=== PATIENT | female | born 1975 | race Two or more races ===

== ENCOUNTER 2023-04-05 19:48 | Emergency (ER) | payer MEDICAID, SELFPAY ==
[2023-04-05 19:55] VITALS: BP 151/79; PULSE 79; RESP 16; O2SAT 99; BMI 30.5
--- NOTE | 2023-04-05 20:04 | ED.GENADUL1 ---
HPI - General Adult General Chief complaint: Upper Respiratory Infection Stated complaint: sore throat Time Seen by Provider: 04/05/23 19:56 Source: patient Mode of arrival: walk-in History of Present Illness HPI narrative: [age] year old female presents for a four day history of sore throat. It hurts when she swallows. 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 She checked her self or Covid at home and it was negative. No fever but she felt like she had some chills. Related Data Allergies Allergy/AdvReac Type Severity Reaction Status Date / Time No Known Drug Allergies Allergy Verified 04/05/23 20:03 Review of Systems ROS Narrative A ten point review of systems is negative except as noted above. PFSH PFSH Social History Smoking status: Never smoker Exam Narrative Exam Narrative: Nurses note and vital signs reviewed and patient is not hypoxic. General: The patient appears well and in no apparent distress. Patient is resting comfortably on cart. Skin: Warm, dry, no pallor noted. There is no rash noted. Head: Normocephalic, atraumatic Eye: Normal conjunctiva, no drainage Ears, Nose, Mouth, and Throat: oral mucosa is moist. Nares patent. exudate or erythema. Uvula is midline. No swelling. She is handling her oral secretions well. Cardiovascular: Regular Rate and Rhythm Respiratory: Patient is in no distress, no accessory muscle use, lungs are clear to auscultation, no wheezing, rales or rhonchi Back: non-tender GI: nontender Musculoskeletal: The patient has no evidence of calf tenderness, no pitting edema, symmetrical pulses noted bilaterally Neurological: A&O, normal speech Psychiatric: Cooperative Constitutional Vital Signs, click to edit/add: Last Vital Signs Pulse 79 04/05/23 19:55 Resp 16 04/05/23 19:55 BP 151/79 H 04/05/23 19:55 Pulse Ox 99 04/05/23 19:55 O2 Del Method Room Air 04/05/23 19:55 Course Vital Signs Vital signs: Vital Signs Pulse Rate 79 04/05/23 19:55 Respiratory Rate 16 04/05/23 19:55 Blood Pressure 151/79 H 04/05/23 19:55 Pulse Oximetry 99 04/05/23 19:55 Oxygen Delivery Method Room Air 04/05/23 19:55 Pulse Rate 79 04/05/23 19:55 Respiratory Rate 16 04/05/23 19:55 Blood Pressure 151/79 H 04/05/23 19:55 Pulse Oximetry 99 04/05/23 19:55 Oxygen Delivery Method Room Air 04/05/23 19:55 Medical Decision Making MDM Narrative Medical decision making narrative: strep test is negative. No antibiotic is indicated. Treatment diagnosis and follow-up were discussed with the patient. Differential Diagnosis Differential Diagnosis: strep throat, Covid, viral pharyngitis Lab Data Lab results narrative: strep test negative. Labs: Lab Results 04/05/23 Range/Units 20:02 Streptococcus Screen Negative Discharge Plan Discharge Chief Complaint: Upper Respiratory Infection Clinical Impression: Acute viral pharyngitis Patient Disposition: Home, Self-Care Time of Disposition Decision: 20:48 Condition: Good Mode of Transportation: Private Vehicle Instructions: Pharyngitis (ED) Stand Alone Forms: Portal Instructions Referrals: KHLOE SALVADOR [Primary Care Provider] - 1 week
[2023-04-05 20:31] LABS: Internal Control Within Normal Limits; Strep A Antigen Screen Negative
== END 2023-04-05 20:59 | disposition home or self-care (01) ==
PROVIDERS: Emergency Provider Emergency Medicine; PCP Family Medicine
DX: J02.9 Acute pharyngitis, unspecified (principal)
CPT/HCPCS: 87070; 87880; 99283

== ENCOUNTER 2023-05-08 17:09 | Emergency (ER) | payer MEDICAID, SELFPAY ==
[2023-05-08 17:12] VITALS: BP 147/53; PULSE 82; RESP 16; TEMP 36.7; O2SAT 100; BMI 31.2
--- NOTE | 2023-05-08 17:16 | US_ITS ---
The [address] [address] Patient Name: JEREMY NDIAYE MRN: [id number] date: 1975 Sex: F Assigned Patient Location: ER Current Patient Location: Accession/Order Number: [id number] Exam Date: 05/08/2023 17:57 Report Date: 05/08/2023 18:42 At the request of: JACINTO HARDWICK Procedure: US venous doppler LE LT EXAM: US venous doppler LE LT HISTORY: calf pain, history of deep vein thrombosis COMPARISON: None. TECHNIQUE: Evaluation of the deep veins of the left lower extremity was performed utilizing B-mode, color flow and spectral analysis. FINDINGS: The visualized vessels comprising the deep venous systems from the common femoral vein through the calf veins demonstrate appropriate compressibility, spontaneous color Doppler flow, and augmentation of flow on spectral Doppler with distal compression. Additional findings: None. US/US venous doppler LE LT IMPRESSION: No sonographic evidence of deep venous thrombosis of the left lower extremity. Electronically authenticated by: VANE HILTON Date: 05/08/2023 18:42
--- NOTE | 2023-05-08 17:18 | ED.GENADUL1 ---
HPI - General Adult General Chief complaint: Extremity Injury, Lower Stated complaint: left knee pain Time Seen by Provider: 05/08/23 17:11 Source: patient Mode of arrival: walk-in History of Present Illness HPI narrative: 47 year old female presents for left calf pain. She's had it for a week and half. She is worried about a deep vein thrombosis. She had one previously and was taken off of her blood thinner about a year ago. No chest pain or shortness of breath and there was no injury. No pain in the knee or ankle. Symptom is continuous. Related Data Allergies Allergy/AdvReac Type Severity Reaction Status Date / Time No Known Drug Allergies Allergy Verified 04/05/23 20:03 Review of Systems ROS Narrative A ten point review of systems is negative except as noted above. PFSH PFSH Social History Smoking status: Never smoker Exam Narrative Exam Narrative: Nurses note and vital signs reviewed and patient is not hypoxic. General: The patient appears well and in no apparent distress. Patient is resting comfortably on cart. Skin: Warm, dry, no pallor noted. There is no rash noted. Head: Normocephalic, atraumatic Eye: Normal conjunctiva, no drainage Ears, Nose, Mouth, and Throat: oral mucosa is moist. Nares patent. Cardiovascular: Regular Rate and Rhythm Respiratory: Patient is in no distress, no accessory muscle use Back: non-tender GI: Normal bowel sounds, no tenderness to palpation, no masses appreciated. No rebound, guarding, or rigidity noted. Musculoskeletal: she has some left calf tenderness without mass or bruising or erythema or visible swelling. Neurological: A&O, normal speech Psychiatric: Cooperative Constitutional Vital Signs, click to edit/add: Last Vital Signs Temp 98.0 F 05/08/23 17:12 Pulse 82 05/08/23 17:12 Resp 16 05/08/23 17:12 BP 147/53 H 05/08/23 17:12 Pulse Ox 100 05/08/23 17:12 O2 Del Method Room Air 05/08/23 17:12 Course Vital Signs Vital signs: Vital Signs Temperature 98.0 F 05/08/23 17:12 Pulse Rate 82 05/08/23 17:12 Respiratory Rate 16 05/08/23 17:12 Blood Pressure 147/53 H 05/08/23 17:12 Pulse Oximetry 100 05/08/23 17:12 Oxygen Delivery Method Room Air 05/08/23 17:12 Temperature 98.0 F 05/08/23 17:12 Pulse Rate 82 05/08/23 17:12 Respiratory Rate 16 05/08/23 17:12 Blood Pressure 147/53 H 05/08/23 17:12 Pulse Oximetry 100 05/08/23 17:12 Oxygen Delivery Method Room Air 05/08/23 17:12 Medical Decision Making MDM Narrative Medical decision making narrative: Doppler is negative and she is able to be discharged home. Treatment diagnosis and follow-up were discussed with the patient. Discharge Plan Discharge Chief Complaint: Extremity Injury, Lower Clinical Impression: Leg pain Patient Disposition: Home, Self-Care Time of Disposition Decision: 18:15 Condition: Good Mode of Transportation: Private Vehicle Instructions: Leg Pain (ED) Stand Alone Forms: Portal Instructions Referrals: KHLOE SALVADOR [Primary Care Provider] - 1 week
== END 2023-05-08 18:24 | disposition home or self-care (01) ==
PROVIDERS: Emergency Provider Emergency Medicine; PCP Family Medicine
DX: M79.605 Pain in left leg (principal); Z86.718 Personal history of other venous thrombosis and embolism
CPT/HCPCS: 93971; 99284

== ENCOUNTER 2023-12-03 20:39 | Outpatient (REF) | payer MEDICAID, SELFPAY ==
[2023-12-09 15:08] LABS: Age Gdln ACOG Testing Note (.); HPV Aptima Negative (Negative); IGP, Aptima HPV, rfx 16/18,45 Note (.)
== END 2023-12-03 20:40 | disposition home or self-care (01) ==
LOC: LAB 20:39
PROVIDERS: PCP Family Medicine; Visit Provider Physician Assistant
DX: Z01.419 Encounter for gynecological examination (general) (routine) without abnormal findings (principal)
CPT/HCPCS: 87624; G0145

== ENCOUNTER 2025-03-23 14:48 | Outpatient (REF) | payer MEDICAID, SELFPAY ==
--- OUTSIDE RECORDS SUMMARY | 2024-10-07 04:45 | XMS_ITS ---
Author Organization [facility] vices Address [address] [place] [id number] Care Team Providers Care Display Carver Name Role Phone Darell De Oliveira Unavailable [phone] Kristine Cerna Unavailable [phone] REASON FOR VISIT Recall (A)- 48 Social History Sex Assigned At : Social History Observation Description Sex Assigned At Female Encounters Encounter Location Date Provider Diagnosis [facility] [address] [place], [place] [id number] 10/07/2024 Kristine Cerna Plan Of Treatment No Information Progress Notes * Oumar NDIAYEOB: 7 (49 yo F)Acc No.[id number]:10/07/2024 Patient: Jenn TODD Provider: Nnamdi Cerna DDS :1975 A ge:48 Y S ex:Female Date:10/07/2024 Address:[address] [facility] Subjective: * Chief Complaints: * 1 . Recall (A)- 48. * Medical History: Objective: * Vitals: Assessment: Plan: * Treatment: * Billing Information: * Visit Code: * Procedure Codes: * Electronic signature of Matty Cerna DDS on 03/23/2025 at 08:26 AM EDT Sign off status: Pending * Provider: Nnamdi Cerna DDS Date: 0 10/07/2024 Generated for Trani ng/Fataz/eTransmitting on: 0 03/23/2025 08:26 AM EDT
--- OUTSIDE RECORDS SUMMARY | 2024-12-13 13:15 | XMS_ITS ---
Author Organization [facility] vices Address [address] [place] [id number] Care Team Providers Care Legal Contracts Specialist Name Role Phone Darell De Oliveira Unavailable [phone] Kristine Cerna Unavailable [phone] REASON FOR VISIT Recall (A) 48 Social History Sex Assigned At : Social History Observation Description Sex Assigned At Female Encounters Encounter Location Date Provider Diagnosis [facility] [address] [place], [place] [id number] 12/13/2024 Kristine Cerna Plan Of Treatment No Information Progress Notes * Oumar NDIAYEOB: 7 (49 yo F)Acc No.[id number]:12/13/2024 Patient: Jenn TODD Provider: Nnamdi Cerna DDS :1975 A ge:49 Y S ex:Female Date:12/13/2024 Address:[address] [id number] Subjective: * Chief Complaints: * 1 . Recall (A) 48. * Medical History: Objective: * Vitals: Assessment: Plan: * Treatment: * Billing Information: * Visit Code: * Procedure Codes: * Electronic signature of Matty Cerna DDS on 03/23/2025 at 08:26 AM EDT Sign off status: Pending * Provider: Nnamdi Cerna DDS Date: 0 12/13/2024 Generated for Elizabeth miller/Alexandra/eTransmitting on: 0 03/23/2025 08:26 AM EDT
--- OUTSIDE RECORDS SUMMARY | 2025-03-23 09:00 | XMS_ITS | Encounter Summary ---
Author Organization [facility] Address [address] [facility] [place] [address] Care Team Providers Care [employer] Librarian Name Role Phone Park Perdomo MD Primary Care Provider [phone] Idalmis Kramer [employer] Unavailable [phone] Franklin Sanchez MD Unavailable Reason for Visit * Reason Comments Well Women Visit Encounter Details Date Type Department Care Team (Latest Contact Info) Description 03/23/2025 9:00 AM EDT Procedure Visit [facility] [address] [place] [address] Kimberlee Jane PA [address] [facility] [address] [place], [facility]11 Well woman exam with routine gynecological exam; Breast cancer screening by mammogram Social History Tobacco Use Types Packs/Day Years Used Date Smoking Tobacco: Never Smokeless Tobacco: Never Alcohol Use Standard Drinks/Week Comments Yes 1 (1 standard drink = 0.6 oz pure alcohol) caffeine intake : 3-4 cups per day , pop Humiliation, Afraid, Rape, and Kick questionnair e Answer Date Recorded Within the last year, have y ou been afraid of your partner or ex-partner? No 02/14/2023 Within the last year, have y ou been humiliated or emotionally abused in other ways by your partner or ex-partner? No Within the last year, have y ou been kicked, hit, slapped, or otherwise physically hurt by your partner or ex-partner? No 02/14/2023 Within the last year, have y ou been raped or forced to have any kind of sexual activity by your partner or ex-partner? No 02/14/2023 Social Connection and Isolation Panel [NHANES] A nswer Date Recorded In a typical week, how many times do you talk on the phone with family, friends, or neighbors? Once a week 02/15/20 How often do you get togethe r with friends or relatives? Twice a week 02/14/2023 How often do you attend chur ch or mormonism services? 1 to 4 times per year 02/14/2023 Do you belong to any clubs o r organizations such as latter-day groups, unions, fraternal or athletic groups, or school groups? No 02/14/2023 How often do you attend meet ings of the clubs or organizations you belong to? Never 02/14/2023 Are you , , di vorced, , never , or living with a partner? 02/14/2023 AUDIT-C Answer Date Recorded Q1: How often do you have a drink containing alc ohol? Monthly or less 02/14/2023 Q2: How many drinks containi ng alcohol do you have on a typical day when you are drinking? 1 or 2 02/14/2023 Q3: How often do you have si x or more drinks on one occasion? Never 02/14/2023 Overall Financial Resource Strain (CARDIA) Answe r Date Recorded How hard is it for you to pa y for the very basics like food, housing, medical care, and heating? Not hard at all 02/14/2023 [facility] - Occupational Stress Questionnaire Answer Date Recorded Do you feel stress - tense, restless, nervous, or anxious, or unable to sleep at night because your mind is troubled all the time - these days? To some extent 02/14/2023 Exercise Vital Sign Answer Date Recorde d On average, how many days pe r week do you engage in moderate to strenuous exercise (like a brisk walk)? 0 days 02/14/2023 On average, how many minutes do you engage in exercise at this level? 0 min 02/14/2023 Hunger Vital Sign Answer Date Recorded Within the past 12 months, y ou worried that your food would run out before you got the money to buy more. Never true 02/15/20 23 Within the past 12 months, t he food you bought just didn't last and you didn't have money to get more. Never true 02/14/2023 PRAPARE - Transportation Answer Date Re corded In the past 12 months, has l ack of transportation kept you from medical appointments or from getting medications? No 01/26 In the past 12 months, has l ack of transportation kept you from meetings, work, or from getting things needed for daily living? No 02/14/2023 Housing Stability Vital Sign Answer Benedict e Recorded In the last 12 months, was t here a time when you were not able to pay the mortgage or rent on time? No 02/14/2023 In the last 12 months, how many places have you lived? 2 02/14/2023 In the last 12 months, was t here a time when you did not have a steady place to sleep or slept in a correction (including now)? No 02/14/2023 Comments No Sex and Gender Information Value Date Recorded Sex Assigned at Not on file Legal Sex Female 6:46 PM EDT Gender Identity Not on file Sexual Orientation Not on file documented as of this encounter Last Filed Vital Signs Vital Sign Reading Time Taken Comments Blood Pressure 136/76 03/23/2025 8:41 AM EDT Pulse - - Temperature - - Respiratory Rate - - Oxygen Saturation - - Inhaled Oxygen Concentration - - Weight 73.9 kg (163 lb) 03/23/2025 8:41 AM EDT Height - - Body Mass Index 28.87 03/18/2024 9:18 AM EDT documented in this encounter Progress Notes * THADDEUS Rojas - 03/23/2025 9:00 AM EDT Reason for Appointment: Patient ID: Jenn Benson is a 49 y.o. female who presents for Well Women Visit Patient presents today for Annual Exam. MEDICATIONS Current Outpatient Medications Medication Instructions azithromycin (Zithromax Z-Derek) 250 MG tablet As directed buPROPion XL (WELLBUTRIN XL) 300 mg, Oral, Daily, Do not crush, chew, or split. famotidine (PEPCID) 20 mg, Oral, Daily ibuprofen 600 mg, Oral, 3 times daily loratadine (CLARITIN) 10 mg, Oral, Daily metFORMIN XR (GLUCOPHAGE-XR) 1,000 mg, Oral, Daily methylPREDNISolone (Medrol Dospak) 4 MG tablets Follow schedule on package instructions minoxidil (LONITEN) 10 mg, Oral, Daily omeprazole (PriLOSEC) [address] capsule TAKE 1 CAPSULE( 20 MG) BY MOUTH IN THE MORNING BEFORE A MEAL. DO NOT CRUSH OR CHEW phentermine (ADIPEX-P) 37.5 mg, Oral, Daily before breakfast phentermine (ADIPEX-P) 37.5 mg, Oral, Daily before breakfast 27-1 MG tablet 1 tablet, Oral, Daily Vit-Fe Fumarate-FA ( Vitamins) 28-0.8 MG tablet 1 tablet, Oral, Daily pseudoephedrine ER (SUDAFED-12 HOUR) 120 mg, Oral, Every 12 hours, Do not crush, chew, or split. SUMAtriptan (IMITREX) 25 mg, Oral, Once as needed, May repeat dose once in 2 hours if no relief. Donot exceed 2 doses in 24 hours. ALLERGIES Allergies Allergen Reactions Hydrocodone-Acetaminophen Dizziness, GI intolerance and Nausea Only Tetracycline Unknown and Diarrhea Other Reaction(s): Vomiting PROBLEMS Active Ambulatory Problems Diagnosis Date Noted Abnormal uterine bleeding 02/03/2023 Abnormal weight gain 02/03/2023 Artificial knee joint present 02/03/2023 Bipolar 2 disorder (HCC) 02/03/2023 Depression with anxiety 02/03/2023 Depression 02/03/2023 Difficulty walking 02/03/2023 Insulin resistance syndrome 02/03/2023 Effusion, left knee 02/03/2023 Menorrhagia 02/03/2023 Osteoarthritis of knee 02/03/2023 Other chronic pain 02/03/2023 Pain in female pelvis 02/03/2023 Pain in left knee 02/03/2023 Right kidney stone 02/03/2023 Status post total left knee replacement 02/03/2023 Thickened endometrium 02/03/2023 Urinary tract infection without hematuria 08/17/2024 Insulin resistance 01/05/2025 Hair thinning 01/05/2025 Resolved Ambulatory Problems Diagnosis Date Noted No Resolved Ambulatory Problems Past Medical History: Diagnosis Date BMI 27.0-27.9,adult Gestational diabetes (HHS-HCC) Hx of being hospitalized Personal history of other medical treatment Umbilical hernia 2013 HISTORY PAST MEDICAL HISTORY SOCIAL HISTORY Past Medical History: Diagnosis Date Abnormal weight gain BMI 27.0-27.9,adult Depression Gestational diabetes (HHS-HCC) Hx of being hospitalized childbirth Personal history of other medical treatment denies bloodborne dx Umbilical hernia 2012 Social History Tobacco Use Smoking status: Never Smokeless tobacco: Never Substance Use Topics Alcohol use: Yes Alcohol/week: 1.0 - 2.0 standard drink of alcohol Types: 1 - 2 Standard drinks or equivalent per week Comment: caffeine intake : 3-4 cups per day , pop Drug use: Never FAMILY HISTORY Family History Problem Relation Name Age of Onset Other (htn) Mother Diabetes type II Mother Mental illness Mother Hypertension Mother Diabetes Maternal Grandmother Hypertension Maternal Grandmother Heart disease Maternal Grandmother Mental illness Maternal Grandmother Hyperlipidemia Maternal Grandmother SURGICAL HISTORY Past Surgical History: Procedure Laterality Date CERVICAL BIOPSY W/ LOOP ELECTRODE EXCISION 2009 ENDOMETRIAL ABLATION 11/16/2022 KIDNEY STONE SURGERY Right 11/2022 KNEE ARTHROSCOPY W/ ACL RECONSTRUCTION 2017 TOTAL KNEE ARTHROPLASTY Left 05/2021 TOTAL KNEE ARTHROPLASTY Left 06/12/2021 Dr. Salazar UMBILICAL HERNIA REPAIR 2013 with mesh VENTRAL HERNIA REPAIR 2018 REVIEW OF SYSTEMS Review of Systems: Review of Systems Constitutional: Negative. HENT: Negative. Eyes: Negative. Respiratory: Negative. Cardiovascular: Negative. Gastrointestinal: Negative. Genitourinary: Negative. Musculoskeletal: Negative. Skin: Negative. Neurological: Negative. All other systems reviewed and are negative. Hematological: Negative. Endocrine: Negative. Allergic/Immunologic: Negative. OBJECTIVE Objective: Physical Exam Constitutional: Appearance: Normal appearance. Genitourinary: Right Adnexa: not tender and no mass present. Left Adnexa: not tender and no mass present. No cervical discharge. Breasts: Breasts are soft. Right: Normal. Left: Normal. HENT: Head: Normocephalic. Nose: Nose normal. Mouth/Throat: Mouth: Mucous membranes are moist. Cardiovascular: Rate and Rhythm: Normal rate. Pulmonary: Effort: Pulmonary effort is normal. Abdominal: General: Bowel sounds are normal. Palpations: Abdomen is soft. Musculoskeletal: General: Normal range of motion. Cervical back: Normal range of motion. Neurological: General: No focal deficit present. Mental Status: She is alert. Skin: General: Skin is warm and dry. Psychiatric: Mood and Affect: Mood normal. Vitals and nursing note reviewed. Exam conducted with a social sciences instructor present. Vitals: Estimated body mass index is 28.87 kg/m?? as calculated from the following: Height as of 03/18/24: 5' 3 . Weight as of this encounter: 163 lb. BP: 136/76 No LMP recorded. Patient has had an ablation. ASSESSMENT & PLAN ICD-10-CM 1. Well woman exam with routine gynecological exam Z01.419 THIN PREP TIS PAP AND HR HPV DNA 2. Breast cancer screening by mammogram Z12.31 Bilateral screening mammogram Bilateral screening mammogram Annual Exam: Patient presents today for an annual exam. Patient states she is doing well and has no complaints. Pap was obtained without difficulty. Orders Placed This Encounter Procedures Bilateral screening mammogram Follow Up: Patient is to return in one year for annual unless needed otherwise. Documented by THADDEUS Rojas on behalf of: THADDEUS Rojas documented in this encounter Plan of Treatment Upcoming Encounters Date Type Department Care Team (Late st Contact Info) Description 03/29/2026 9:00 AM EDT Procedure Visit [facility] [address] [address] Kimberlee Jane PA [address] [facility] [place] [address] Scheduled Orders Name Type Priority Associated Diagnoses Orde r Schedule Bilateral screening mammogram Imaging Routine Breast cancer screening by mammogram Expected: 03/23/2025 (Approximate), Expires: 05/23/2026 THIN PREP TIS PAP AND HR HPV DNA Pathology and Cytology Routine Well woman exam with routine gynecological exam Ordered: 03/23/2025 documented as of this encounter Visit Diagnoses Diagnosis Well woman exam with routine gynecological exam Routine gynecological examination Breast cancer screening by mammogram documented in this encounter Care Teams [employer] Librarian Relationship Specialty Start Date End Date Park Perdomo MD [address] [place] [address] PCP - General Family Medicine 02/03/23 Franklin Sanchez MD [address] [facility] [address] [id number] PCP - [facility] 10/27/23 Idalmis Kramer NP [address] [place] [address] Nurse Practitioner Family Medicine 02/03/23 documented as of this encounter
--- OUTSIDE RECORDS SUMMARY | 2025-03-23 14:53 | XMS_ITS | Patient Health Record ---
Author Organization [facility] vices Address [address] [place], [place] [id number] Care Team Providers Care Body Maker Machine Setter Name Role Phone Darell De Oliveira Unavailable [phone] Kristine Cerna Unavailable [phone] Allergies Allergen (clinical drug ingredient) Drug/Non Drug Allergy documented on EMR Reaction Allergy Type Onset Date Status Vicodin nausea and vomiting Drug Allergy Active tetracycline Tetracycline hives Drug Allergy A ctive Reason For Referral No Information Medications Medication SIG (Take, Route, Frequency, Duration) Notes Start Date End Date Status Active Amoxicillin Premed for Knee Ac tive metFORMIN HCl Active Mobic 01/23/2024 Active Celecoxib 200 MG Oral; Duration: 30 Days Active Azithromycin 250 MG Oral; Duration: 5 Days Active Wellbutrin XL 150 MG 1 tablet in the morning Orally Once a day; Duration: 30 day(s) 05/13/2024 Active Immunizations Vaccine Route Administration Date Status Comme nts *Hep B, adult dosage-Private IM Intramuscular 03/26/2018 Administered Status:Complete ,Reason:Given or N/A *Hep B, adult dosage-Private IM Intramuscular 10/05/2018 Administered Status:Complete ,Reason:Given or N/A DTaP-Hep B-IPV IM Intramuscular 04/29/[address] atus:Complete ,Reason:Given or N/A Social History Tobacco Use: Social History Observation Description Date Details (start date - stop date) Never Smoker NA - NA Sex Assigned At : Social History Observation Description Sex Assigned At Female Tobacco Control (Standard) Question Answer Notes Tobacco use: Nonsmoker Additional Findings: Tobacco non-user Current no nsmoker Problems Problem Type SNOMED Code ICD Code Onset Dates Problem Status W/U Status Risk Notes Problem BMI 25-29 - overweight (394081337) BMI 29.0-29.9,adul t (Z68.29) Active confirmed Problem School admission medical examination (276106462) Encounter for examination for admission to educational institution (Z02.0) Active confirmed Comment:-pt needs all these screenings for school -she also needs TB, which she will schedule a nurse visit for next week, Problem Acute conjunctivitis (54531681) Conjunctivitis , acute (H10.30) Active confirmed Comment:Disc ussed multiple possible causes of conjunctivit is- bacterial, viral, allergic,etc . Will tx with quinolone since pt is contact lens wearer. Will discard previous lenses and eye makeup (states just wears mascara), wear glasses until current sx resolve, completes RX. Then, new lenses and mascara., Problem Umbilical hernia (835465033) Hernia, umbilical (K42.9) Active confirmed Comment:-pt currently has an umbilical hernia -has pain with eating and straining the abdomen -has been getting worse the past month -pain always subsides -will refer to general surgery -f/u as needed before getting into general surgery, Problem Annual wellness visit (008169057559848) Wellness examination (Z00.00) Active confirmed Comment:-pt is a healthy 42 year old female -is currently - taking vitamins -has a hx of psych issues - bipolar, anxiety. is currently taking lexapro and trazodone - told her to clear those with OB at her next visit - [facility] -no current issues -counseled on diet and exercise -up to date with current PAP and mammogram -overall, doing well -f/u in 1 year for next visit, Problem Follow-up status (557316970) Follow up (Z09) Active confirmed Problem Tuberculosis screening (131813015) Encounter for reading of tuberculin skin test (Z11.1) Active confirmed Comment:-0mm for her second reading -pt shoud be good to go. 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 (256872993) Encounter for tuberculin skin test (Z11.1) Active confirmed Story:Given in RT forearm 04/01/18 at 10:06 am Lot#[id number] exp 03/15 [facility] [id number] ,Description :Tuberculin skin test encounter Vital Signs Heart Rate 93 /min 05/13/2024 Height-cm 160.02 cm 05/13/2024 Blood pressure diastolic 84 mm Hg 05/13/2024 Weight-kg 75.75 kg 05/13/2024 Height 5'3 in 05/13/2024 Blood pressure systolic 135 mm Hg 05/13/2024 Weight 167 lbs 05/13/2024 BMI 29.58 kg/m2 05/13/2024 Encounters Encounter Location Date Provider Diagnosis [facility] [address] [place], [place] [id number] 05/03/2024 Kristine Cerna Dental caries into dentine K02.62 Dental [facility] [address] [place], [place] [id number] 05/13/2024 Kristine Boyer-Christiana Caries of dentin K02.62 Assessments Encounter Date Diagnosis (ICD Code) Assessment Notes Treatment Notes Treatment Clinical Notes Section Notes 05/03/2024 Dental caries into dentine (ICD-10 - K02.62) 05/13/2024 Caries of dentin (ICD-10 - K02.62) Plan Of Treatment No Information Insurance Providers Payer Name Payer Address Payer Phone Subscriber Number Group Number Insured Name Patient Relationship to Insured Coverage Start Date Coverage End Date [facility] [address] [address] [place] [address] [id number] Jenn Benson Self - patient is the insured 5 DMedicaid CFC after [place] [address] [place], [place] [id number] Jenn Benson Self - patient is the insured 7 Medical (General) History Medical History History ICD Code Anxiety, ProblemStatus: Active, , Bipolar Disorder, ProblemStatus: Active, , Manic-depression, ProblemStatus: Active, , Surgical History Surgery Date(Month/Year) Inguinal Hernia Repair, COMMENTS: 2, Pro blemStatus: Active,
--- OUTSIDE RECORDS SUMMARY | 2025-03-23 14:54 | XMS_ITS | Encounter Summary ---
Author Organization [facility] Address [address] [facility] [place] [address] Care Team Providers Care Marketing Automation Manager Name Role Phone Park Perdomo MD Primary Care Provider [phone] Idalmis Kramer PERSONNEL REPRESENTATIVE Unavailable [phone] Franklin Sanchez MD Unavailable Encounter Details Date Type Department Care Team (Late st Contact Info) Description 03/23/2025 [employer] flowsheet [facility] [address] [place] [address] Kimberlee Jane PA [address] [facility] [address] [place], [facility]11 Social History Tobacco Use Types Packs/Day Years [...] 02/14/2023 How often do you attend chur or gnosticist services? 1 to 4 times per year 02/14/2023 Do you belong to any clubs o r organizations such as sikhism groups, unions, fraternal or athletic groups, or [...] and heating? Not hard at all 02/14/2023 [facility] - Occupational Stress Questionnaire Answer Date Recorded [...] place to sleep or slept in a retirement (including now)? No 02/14/2023 Comments No Sex and Gender Information Value Date Recorded Sex Assigned at Not on file Legal Sex Female 6:46 PM EDT Gender Identity Not on file Sexual Orientation Not on file documented as of this encounter Plan of Treatment Upcoming Encounters Date Type Department Care Team (Late st Contact Info) Description 03/29/2026 9:00 AM EDT Procedure Visit [facility] [address] [place] [address] Kimberlee Jane PA [address] [place] [address] documented as of this encounter Visit Diagnoses Not on filedocumented in this encounter Care Teams Marketing Automation Manager Relationship Specialty Start Date End Date Park Perdomo MD [address] [place] [address] PCP - General Family Medicine 02/03/23 Franklin Sanchez MD [address] [facility] [address] [place] [address] PCP - [facility] PROTOTYPE SPECIAL BUILD 10/27/23 Idalmis Kramer NP [address] [place] [address] Nurse Practitioner Family Medicine 02/03/23 documented as of this encounter
--- OUTSIDE RECORDS SUMMARY | 2025-03-23 14:54 | XMS_ITS | Encounter Summary ---
Author Organization [facility] Address [address] [place] [address] Care Team Providers Care Energy Project Manager Name Role Phone Park Perdomo MD Primary Care Provider [phone] Idalmis Kramer SPEECH LANGUAGE PATHOLOGY ASSISTANT Unavailable [phone] Franklin Sanchez MD Unavailable Encounter Details Date Type Department Care Team (Late st Contact Info) Description 12/08/2024 Abstract [facility] [address] [place] [address] Praveen Feliciano DO [address] [facility] [address] [place], [facility]11 Social History Tobacco Use Types Packs/Day Years [...] How often do you attend chur or pentecostalism services? 1 to 4 times per year 02/14/2023 Do you belong to any clubs o r organizations such as christian groups, unions, fraternal or athletic groups, or [...] heating? Not hard at all 02/14/2023 [facility] - Occupational Stress Questionnaire Answer Date Recorded [...] place to sleep or slept in a jail (including now)? No 02/14/2023 Comments No Sex [...] AM EDT Procedure Visit [facility] [address] [place] [address] Kimberlee Jane PA [address] [facility] [place] [address] documented as of this encounter Visit Diagnoses Not on filedocumented in this encounter Care Teams Energy Project Manager Relationship Specialty Start Date End Date Park Perdomo MD [address] [place] [address] PCP - General Family Medicine 02/03/23 Franklin Sanchez MD [address] [facility] [address] [place] [address] PCP - [facility] INSIDE SALES ACCOUNT REPRESENTATIVE 10/27/23 Idalmis Kramer NP [address] [place] [address] Nurse Practitioner Family Medicine 02/03/23 documented as of this encounter
--- OUTSIDE RECORDS SUMMARY | 2025-03-23 14:54 | XMS_ITS | Encounter Summary ---
Author Organization [facility] Address [address] [place] [address] Care Team Providers Care Transfer Engineer Name Role Phone Park Perdomo MD Primary Care Provider [phone] Idalmis Kramer MACHINIST MATE Unavailable [phone] Franklin Sanchez MD Unavailable Encounter Details Date Type Department Care Team (Late st Contact Info) Description 05/19/2023 Orders Only [facility] Family Medicine [address] [place] [address] Kalyani Sanches MD [address] [place] [address] Social History Tobacco Use Types Packs/Day Years [...] How often do you attend chur or mormonism services? 1 to 4 times per year 02/14/2023 Do you belong to any clubs o r organizations such as buddhism groups, unions, fraternal or athletic groups, or [...] and heating? Not hard at all 02/14/2023 [facility] - Occupational Stress [...] place to sleep or slept in a nursing home (including now)? No 02/14/2023 Comments Unknown Sex and Gender Information Value Date Recorded Sex Assigned at Not on file Legal Sex Female 6:46 PM EDT Gender Identity Not on file Sexual Orientation Not on file documented as of this encounter Plan of Treatment Upcoming Encounters Date Type Department Care Team (Late st Contact Info) Description 03/29/2026 9:00 AM EDT Procedure Visit [facility] [address] [place] [address] Kimberlee Jane PA [address] [facility] [address] [facility] [address] [place], [place] [id number] documented as of this encounter Procedures Procedure Name Priority Date/Time Associated Diagnosis Comments US VENOUS LE Routine 05/19/2023 12:11 PM EDT documented in this encounter Results * US VENOUS LE (05/19/2023 12:11 PM EDT) Anatomical Region Laterality Modality Radiographic Brii ging Kalyani Sanches MD IMG XR PROCEDURES Final Result documented in this encounter Visit Diagnoses Not on filedocumented in this encounter Care Teams Transfer Engineer Relationship Specialty Start Date End Date Park Perdomo MD [address] [place] [address] PCP - General Family Medicine 02/03/23 Franklin Sanchez MD 112 [facility] [address] [place] [address] PCP - [facility] 10/27/23 Idalmis Kramer NP [address] [place] [address] Nurse Practitioner Family Medicine 02/03/23 documented as of this encounter
--- OUTSIDE RECORDS SUMMARY | 2025-03-23 14:54 | XMS_ITS | Encounter Summary ---
Author Organization [facility] Address [address] [place] [address] Care Team Providers Care Senior Applications Analyst Name Role Phone Park Perdomo MD Primary Care Provider [phone] Idalmis Kramer FAMILY SERVICES WORKER Unavailable [phone] Franklin Sanchez MD Unavailable Encounter Details Date Type Department Care Team (Late st Contact Info) Description 02/05/2023 Abstract [facility] [place] [facility] [address] [place] [address] Yovana Polo, FAMILY SERVICES WORKER [address] [place] [address] Social History Tobacco Use Types Packs/Day Years Used Date Smoking Tobacco: Never Smokeless Tobacco: Never Tobacco Cessation:Counseling Given: Not Answered Alcohol Use Standard Drinks/Week Comments Yes 1 (1 standard drink = 0.6 oz pure alcohol) caffeine intake : 3-4 cups per day , pop Comments Unknown Sex and Gender Information Value Date Recorded Sex Assigned at Not on file Legal Sex Female 6:46 PM EDT Gender Identity Not on file Sexual Orientation Not on file documented as of this encounter Plan of Treatment Upcoming Encounters Date Type Department Care Team (Late st Contact Info) Description 03/29/2026 9:00 AM EDT Procedure Visit [facility] [address] [facility] [place] [address] Kimberlee Jane PA [address] [place] [address] [place] [address] documented as of this encounter Visit Diagnoses Not on filedocumented in this encounter Care Teams Senior Applications Analyst Relationship Specialty Start Date End Date Park Perdomo MD [address] [place] [address] PCP - General Family Medicine 02/03/23 Franklin Sanchez MD [address] [place] [address] PCP - [facility] SILVER PLATER 10/27/23 Idalmis Kramer NP [address] [place] [address] Nurse Practitioner Family Medicine 02/03/23 documented as of this encounter
--- OUTSIDE RECORDS SUMMARY | 2025-03-23 14:54 | XMS_ITS | Encounter Summary ---
Author Organization [facility] Address [address] [place] [address] Care Team Providers Care Cemetery Warden Name Role Phone Park Perdomo MD Primary Care Provider [phone] Idalmis Kramer SENIOR CYTOGENETICS LABORATORY DIRECTOR Unavailable [phone] Franklin Sanchez MD Unavailable Reason for Visit * Reason Comments Med Refill Encounter Details Date Type Department Care Team (Late st Contact Info) Description 03/01/2023 Refill [facility] [address] [facility] [address] [place] [id number] Jr. Bruno Salazar, 112 [facility] [address] [place] [address] Social History Tobacco Use Types Packs/Day Years [...] often do you attend chur ch or church services? 1 to 4 times per year 02/14/2023 Do you belong to any clubs o r organizations such as moravian groups, unions, fraternal or athletic groups, or [...] and heating? Not hard at all 02/14/2023 [facility] - Occupational Stress Questionnaire Answer Date [...] place to sleep or slept in a senior care (including now)? No 02/14/2023 Comments Unknown Sex and Gender Information Value Date Recorded Sex Assigned at Not on file Legal Sex Female 6:46 PM EDT Gender Identity Not on file Sexual Orientation Not on file COVID-19 Exposure Response Date Recorded In the last 10 days, have yo u been in contact with someone who was confirmed or suspected to have Coronavirus/COVID-19? No / Unsure 02/14/2023 12:57 PM EDT documented as of this encounter Miscellaneous Notes * Telephone Encounter - CHIOMA Rodriguez - 03/05/2023 2:59 PM EDT No longer needed documented in this encounter Plan of Treatment Upcoming Encounters Date Type Department Care Team (Late st Contact Info) Description 03/29/2026 9:00 AM EDT Procedure Visit [facility] [address] [facility] [place] [phone] Kimberlee Jane PA [address] [facility] [place] [address] documented as of this encounter Visit Diagnoses Not on filedocumented in this encounter Care Teams Cemetery Warden Relationship Specialty Start Date End Date Park Perdomo MD [address] [place] [address] PCP - General Family Medicine 02/03/23 Franklin Sanchez MD 112 [facility] [address] [place], [place] [id number] PCP - [facility] REGIONAL INTERMODAL TRUCK DRIVER 10/27/23 Idalmis Kramer NP [address] [place] [address] Nurse Practitioner Family Medicine 02/03/23 documented as of this encounter
--- OUTSIDE RECORDS SUMMARY | 2025-03-23 14:54 | XMS_ITS | Encounter Summary ---
Author Organization [facility] Address [address] [place] [address] Care Team Providers Care Operations Analyst Name Role Phone Park Perdomo MD Primary Care Provider [phone] Idalmis Kramer DITCHING MACHINE OPERATOR Unavailable [phone] Franklin Sanchez MD Unavailable Encounter Details Date Type Department Care Team (Late st Contact Info) Description 02/09/2025 Abstract [facility] [address] [facility] [address] Praveen Feliciano DO [address] [facility] [address] Beverley [place], [facility]11 Social History Tobacco Use Types Packs/Day Years [...] How often do you attend chur or mosque services? 1 to 4 times per year 02/14/2023 Do you belong to any clubs o r organizations such as gnosticist groups, unions, fraternal or athletic groups, or [...] and heating? Not hard at all 02/14/2023 [facility] - Occupational Stress Questionnaire Answer Date [...] place to sleep or slept in a long term (including now)? No 02/14/2023 Comments No Sex [...] AM EDT Procedure Visit [facility] [address] [facility] [address] Kimberlee Jnae PA [address] [facility] [place] [address] documented as of this encounter Visit Diagnoses Not on filedocumented in this encounter Care Teams Operations Analyst Relationship Specialty Start Date End Date Park Perdomo MD [address] [place] [address] PCP - General Family Medicine 02/03/23 Franklin Sanchez MD 112 [facility] [address] [place] [address] PCP - [facility] MARKETING FINANCIAL ANALYST 10/27/23 Idalmis Kramer NP [address] [place] [address] Nurse Practitioner Family Medicine 02/03/23 documented as of this encounter
--- OUTSIDE RECORDS SUMMARY | 2025-03-23 14:54 | XMS_ITS | Encounter Summary ---
Author Organization [facility] Address [address] [place] [address] Care Team Providers Care Rhinestone Setter Name Role Phone Park Perdomo MD Primary Care Provider [phone] Idalmis Kramer INFORMATION SYSTEMS AUDITOR Unavailable Franklin Sanchez MD Unavailable Encounter Details Date Type Department Care Team (Late st Contact Info) Description 03/11/2023 [facility] Family [facility] [address] [place] [phone] Kalyani Sanches MD [address] [place] [address] Social History Tobacco Use Types [...] any clubs o r organizations such as bahai groups, unions, fraternal or athletic groups, or [...] and heating? Not hard at all 02/14/2023 [facility] of Occupat ional Health - Occupational Stress [...] PM EDT documented as of this encounter Plan of Treatment Upcoming Encounters Date Type Department Care Team (Late st Contact Info) Description 03/29/2026 9:00 AM EDT Procedure Visit [facility] [address] [facility] [place] [address] Kimberlee Jane PA [address] [facility] [place] [address] documented as of this encounter Visit Diagnoses Not on filedocumented in this encounter Care Teams Rhinestone Setter Relationship Specialty Start Date End Date Park Perdomo MD [address] [place] [address] PCP - General Family Medicine 02/03/23 Franklin Sanchez MD [address] [facility] [address] [place] [address] PCP - [facility] 10/27/23 Idalmis Kramer NP [address] [place] [address] Nurse Practitioner Family Medicine 02/03/23 documented as of this encounter
--- OUTSIDE RECORDS SUMMARY | 2025-03-23 14:54 | XMS_ITS | Clinical Summary ---
Author Organization [facility] Address [address] [place] [address] Care Team Providers Care Scrub Tech Name Role Phone Park Perdomo MD Primary Care Provider [phone] Idalmis Kramer LAUNDRY ASSISTANT Unavailable [phone] Franklin Sanchez MD Unavailable Allergies Active Allergy Reactions Criticality Noted Date Comments Hydrocodone-Acetaminoph en Dizziness,GI intolerance,Nausea Only 05/18/2021 Tetracycline Unknown,Diarrhea 03/09/2018 Other Reaction(s): Vomiting Medications loratadine (Claritin) 10 MG tabletIndicatio ns:Sinus congestion Take 1 tablet (10 mg) by mouth Daily 30 tablet 3 4 Active famotidine (Pepcid) 20 MG tabletIndicatio ns:Gastroesopha geal Reflux Disease,Heartbu rn Take 1 tablet (20 mg) by mouth Daily 30 tablet 11 4 Active 27-1 MG tabletIndicatio ns:Abnormal uterine bleeding Take 1 tablet by mouth Daily 30 tablet 11 4 Active metFORMIN XR (Glucophage-XR) 500 MG 24 hr tabletIndicatio ns:Insulin resistance Take 2 tablets (1,000 mg) by mouth Daily 180 tablet 3 5 08/12/19 26 Active phentermine (Adipex-P) 37.5 MG tabletIndicatio ns:Encounter for weight management Take 1 tablet (37.5 mg) by mouth in the morning. Take before meals. 90 tablet 5 Active methylPREDNISol one (Medrol Dospak) 4 MG tabletsIndicati ons:Acute pain of left knee Follow schedule on package instructions 21 tablet 5 Active phentermine (Adipex-P) 37.5 MG tabletIndicatio ns:Encounter for weight management Take 1 tablet (37.5 mg) by mouth in the morning. Take before meals. 90 tablet 5 Active minoxidil (Loniten) 10 MG tabletIndicatio ns:Hair thinning Take 1 tablet (10 mg) by mouth Daily 30 tablet 5 01/06/20 26 Active Vit-Fe Fumarate-FA ( Vitamins) 28-0.8 MG tabletIndicatio ns:Hair thinning Take 1 tablet by mouth Daily 30 tablet 5 01/06/20 26 Active SUMAtriptan (Imitrex) 25 MG tabletIndicatio ns:Other migraine without status migrainosus, not intractable Take 1 tablet (25 mg) by mouth 1 (one) time if needed for migraine for up to 1 dose May repeat dose once in 2 hours if no relief. Do not exceed 2 doses in 24 hours. 9 tablet 5 Active omeprazole (PriLOSEC) [address] capsuleIndicati ons:Heartburn,G astroesophageal reflux disease, unspecified whether esophagitis present TAKE 1 CAPSULE( 20 MG) BY MOUTH IN THE MORNING BEFORE A MEAL. DO NOT CRUSH OR CHEW 90 capsule 3 5 Active buPROPion XL (Wellbutrin XL) 300 MG 24 hr tabletIndicatio ns:Mood changes Take 1 tablet (300 mg) by mouth Daily Do not crush, chew, or split. 30 tablet 5 Active pseudoephedrine ER (Sudafed-12 Hour) 120 MG 12 hr tabletIndicatio ns:Sinusitis, unspecified chronicity, unspecified location Take 1 tablet (120 mg) by mouth every 12 (twelve) hours Do not crush, chew, or split. 60 tablet 5 02/22/20 26 Active azithromycin (Zithromax Z-Derek) 250 MG tabletIndicatio ns:Sinus congestion As directed 6 tablet 5 Active ibuprofen 600 MG tabletIndicatio ns:History of total left knee replacement,Chr onic pain of left knee Take 1 tablet (600 mg) by mouth in the morning and 1 tablet (600 mg) in the evening and 1 tablet (600 mg) before bedtime. 90 tablet 2 5 06/09/20 25 Active Active Problems Problem Noted Date Diagnosed Date Insulin resistance 01/05/2025 Hair thinning 01/05/2025 Urinary tract infection without hematuria 2024 Abnormal uterine bleeding 02/03/2023 Abnormal weight gain 02/03/2023 Artificial knee joint present 02/03/2023 Bipolar 2 disorder 02/03/2023 Depression with anxiety 02/03/2023 Depression 02/03/2023 Difficulty walking 02/03/2023 Insulin resistance syndrome 02/03/2023 Effusion, left knee 02/03/2023 Menorrhagia 02/03/2023 Osteoarthritis of knee 02/03/2023 Other chronic pain 02/03/2023 Pain in female pelvis 02/03/2023 Pain in left knee 02/03/2023 Right kidney stone 02/03/2023 Status post total left knee replacement 02/04/20 23 Thickened endometrium 02/03/2023 Encounters Date Type Department Care Team Description 03/23/2025 9:00 AM EDT Procedure Visit [facility] [address] [place] [address] Kimberlee Jane PA Well woman exam with routine gynecological exam; Breast cancer screening by mammogram 03/23/2025 Bamboo flowsheet [facility] [address] [place] [address] Kimberlee Jane PA 03/11/2025 Telephone [facility] [address] [facility] [address] [place] [address] Ben Staton PA 03/11/2025 Telephone [facility] [place] [address] Jr. Bruno Salazar, DO Med Refill (Ibuprofen 800mg ) 03/02/2025 Telephone [facility] [address] [place] [address] Kimberlee Jane PA 02/21/2025 Refill [facility] [address] [place] [address] Tonya Goodson, LEAD ORACLE DEVELOPER Mood changes; Sinusitis, unspecified chronicity, unspecified location 02/09/2025 Abstract [facility] [address] [place] [address] Praveen Feliciano, 01/28/2025 Refill [facility] [address] [place] [address] Praveen Feliciano, Heartburn; Gastroesophageal reflux disease, unspecified whether esophagitis present 01/27/2025 Telephone [facility] [address] [place] [address] Tonya Goodson, JARETH 01/07/2025 Telephone [facility] [address] [place] [address] Praveen Feliciano, 01/07/2025 Refill [facility] [address] [place] [address] Praveen Feliciano, Migraine without aura and with status migrainosus, not intractable 01/05/2025 Refill [facility] [address] [place] [address] Praveen Feliciano, Insulin resistance; Hair thinning 01/03/2025 Abstract [facility] [address] [place] [address] Zayra Reyes MA from Last 3 Months Immunizations Immunization Administration Dates Next Due Hep B, adult 10/05/2018,04/29/2018,03/26/2018 Influenza, injectable, quadrivalent 05/12/2019 Influenza, injectable, quadr ivalent, preservative free 05/02/2020 Tdap 01/23/2020,09/21/2018 Family History Medical History Relation Name Comments Diabetes Maternal Grandmother Heart disease Maternal Grandmother Hyperlipidemia Maternal Grandmother Hypertension Maternal Grandmother Mental illness Maternal Grandmother Diabetes type II Mother Hypertension Mother Mental illness Mother htn Mother Relation Name Status Comments Brother 1 brother Daughter Alive 2 daughters Father Alive Maternal Grandmother Mother Alive Sister 1 sister Son Alive 2 sons Social History Tobacco Use Types Packs/Day Years [...] often do you attend chur ch or nondenominational services? 1 to 4 times per year 02/14/2023 Do you belong to any clubs o r organizations such as catholic groups, unions, fraternal or athletic groups, or [...] and heating? Not hard at all 02/14/2023 [facility] Occupat ional Health - Occupational [...] place to sleep or slept in a fdc (including now)? No 02/14/2023 Comments No Sex and Gender Information Value Date Recorded Sex Assigned at Not on file Legal Sex Female 6:46 PM EDT Gender Identity Not on file Sexual Orientation Not on file Last Filed Vital Signs Vital Sign Reading Time Taken Comments Blood Pressure 136/76 03/23/2025 8:41 AM EDT Pulse 77 07/25/2023 3:32 PM EST Temperature 36.3 C (97.3 F) 07/25/2023 3:32 PM EST Respiratory Rate 18 02/05/2023 7:26 PM EDT Oxygen Saturation 99% 07/25/2023 3:32 PM EST Inhaled Oxygen Concentration - - Weight 73.9 kg (163 lb) 03/23/2025 8:41 AM EDT Height 160 cm (5' 3 ) 03/18/2024 9:18 AM EDT Body Mass Index 28.87 03/18/2024 9:18 AM EDT Plan of Treatment Upcoming Encounters Date Type Department Care Team (Late st Contact Info) Description 03/29/2026 9:00 AM EDT Procedure Visit [facility] [address] [place] [address] Kimberlee Jane PA [address] [place] [address] Health Maintenance Due Date Last Done Comments CT Colonography 1976 Colonoscopy 1976 Colorectal Cancer Screening 1976 FIT-DNA 1976 FIT 1976 FOBT 1976 Sigmoidoscopy 1976 HPV/Cotest 2006 Mammogram 08/26/2023 08/26/2022, 09/24/2017, 08/29 Influenza Vaccine (#1) 2025 05/02/2020, 2018 Cervical Cancer Screening 12/02/2026 Pap Smear 12/02/2026 12/03/2023, 08/26/2022 Procedures Procedure Name Priority Date/Time Associated Diagnosis Comments PAP SMEAR Routine 12/03/2023 12:00 AM EDT BI MAMMOGRAM SCREENING BILATERAL Routine 08/26/2022 12:00 PM EST Encounter for other screening for malignant neoplasm of breast Encounter for gynecological examination (general) (routine) without abnormal findings Other general symptoms and signs from Last 3 Months or Most Recently Relevant to Health Maintenance Results * Pap Smear (12/03/2023 12:00 AM EDT) Swab Cervical swab / Unknown Jodie [facility] CYTOLOGY ORDERABLES Final Result EXTERNAL LAB * Bilateral screening mammogram (08/26/2022 12:00 PM EST) Anatomical Region Laterality Modality Breast Bilateral Mammography Narrative 08/26/2022 12:00 PM EST PERFORMED AT [facility] LOCATION:[id number] Procedure Note CONVERSION, GENERIC - 01/31/2023 PERFORMED AT [facility] LOCATION:[id number] Kimberlee TRAVIS IMG BI PROCEDURES Final Result from Last 3 Months or Most Recently Relevant to Health Maintenance Insurance [employer] [place]ICA[place] Care Teams Scrub Tech Relationship Specialty Start Date End Date Park Perdomo MD [address] [place] [address] PCP - General Family Medicine 02/03/23 Franklin Sanchez MD [address] [place] [address] PCP - [facility] 10/27/23 Idalmis Kramer NP [address] [place] [address] Nurse Practitioner Family Medicine 02/03/23
--- OUTSIDE RECORDS SUMMARY | 2025-03-23 14:54 | XMS_ITS | Clinical Summary ---
Author Organization [employer] [facility] [employer] Address [id number] [address] [place] [address] Care Team Providers Care Family Centered Specialist Name Role Phone Kalyani Sanches MD Primary Care Provider [phone] Allergies Active Allergy Reactions Criticality Noted Date Comments Tetracyclines Diarrhea,Vomiting 03/09/2018 Hydrocodone-Acetaminophen Dizziness,Nausea 04/28 Medications * This document contains information received from the source organization and may not represent a complete record from that organization. meloxicam (MOBIC) 15 mg tablet Take 1 tablet (15 mg total) by mouth in the morning. Active metFORMIN XR (GLUCOPHAGE XR) 500 mg 24 hr tablet Take 1 tablet (500 mg total) by mouth daily with breakfast. Active phentermine (ADIPEX-P) 37.5 mg tablet Take 1 tablet (37.5 mg total) by mouth every morning before breakfast. Active Active Problems Problem Noted Date Diagnosed Date Renal colic on right side 09/30/2022 Ureterolithiasis 09/30/2022 Ureteral obstruction, right 09/30/2022 Degenerative joint disease of left knee 06/11/20 21 Elderly multigravida in first trimester 04/01/20 18 Bipolar II disorder 04/14/2017 Insomnia 04/14/2017 Anxiety disorder 04/14/2017 Family History Medical History Relation Name Comments No Known Problems Brother No Known Problems Father Bipolar disorder Maternal Grandmother Cancer Maternal Grandmother STOMACH Diabetes Maternal Grandmother Hyperlipidemia Maternal Grandmother Hypertension Maternal Grandmother Mental illness Maternal Grandmother Bipolar disorder Mother Diabetes Mother Hypertension Mother Osteoporosis Mother No Known Problems Sister Breast cancer Neg Hx Relation Name Status Comments Brother Alive Father Alive Maternal Grandfather Maternal Grandmother Mother Alive Paternal Grandfather Paternal Grandmother Sister Alive Social History Tobacco Use Types Packs/Day Years Used Date Smoking Tobacco: Never Smokeless Tobacco: Never Alcohol Use Standard Drinks/Week Comments No 0 (1 standard drink = 0.6 oz pur e alcohol) Childcare Answer Date Recorded Childcare Unknown 01/06/2019 Employment Answer Date Recorded Employment Unknown 01/06/2019 Hunger Screening Answer Date Recorded Within the past 12 months we worried whether our food would run out before we got money to buy more. Never True 09/30/2022 Within the past 12 months th e food we bought just didn't last and we didn't have money to get more. Never True 09/30/2022 Purpose - Life Answer Date Recorded Purpose and direction in life Unknown Comments No Sex and Gender Information Value Date Recorded Sex Assigned at Not on file Legal Sex Female 11:54 AM EDT Gender Identity Not on file Sexual Orientation Not on file Last Filed Vital Signs Vital Sign Reading Time Taken Comments Blood Pressure 135/69 09/30/2022 7:35 AM EST Pulse 85 09/30/2022 7:35 AM EST Temperature 36.7 C (98 F) 09/30/2022 7:35 AM EST Respiratory Rate 16 09/30/2022 7:35 AM EST Oxygen Saturation 98% 09/30/2022 7:35 AM EST Inhaled Oxygen Concentration - - Weight 79.4 kg (175 lb) 09/30/2022 1:40 AM EST Height 162.6 cm (5' 4 ) 09/30/2022 1:40 AM EST Body Mass Index 30.04 09/30/2022 1:40 AM EST Plan of Treatment Health Maintenance Due Date Last Done Comments Depression Screening 1988 Tobacco Screening 1988 Adult BMI Screening 10/01/2023 09/30/2022 Influenza Vaccine 03/28/2025 05/02/2020, 05/12/2019 Pap Smear 12/02/2026 12/03/2023 DTaP,Tdap and Td Vaccines (3 - Td or Tdap) 01/22/2030 01/23/2020, 09/21/2018 Medical Devices Implanted Type Area Electrocardiographic Technician Device Identifier Shelf Expiration Date Model / Serial / Lot Cement Bio 40gm Rpl [id number] - Sna - [id number] Implanted:Qt y: 1 on 06/12/2021 by Bruno Salazar Jr., DO at [facility] Cement Left: Knee [employer] 03/27/2025 [id number] / NA / [id number] Cement Bn Bio 40gm Rpl [id number] - Sna - [id number] Implanted:Qt y: 1 on 06/12/2021 by Bruno Salazar Jr., DO at [facility] Cement Left: Knee [employer] 04/26/2025 [id number] / NA / [id number] Component Fem 5 Std Kn Lt Post Stab Cmnt Persona Cocr Strl - Sna - [id number] Implanted:Qt y: 1 on 06/12/2021 by Bruno Salazar Jr., DO at [facility] Orthopedic Implant Left: Knee [employer] 09/03/2030 [id number] / NA / [id number] Surface Artc 10mm Persona 3-5 Ef Kn Lt Vivacit-E Post Stab - Sna - [id number] Implanted:Qt y: 1 on 06/12/2021 by Bruno Salazar Jr., DO at [facility] Orthopedic Implant Left: Knee [employer] [id number] 03/27/2022 [id number] / NA / [id number] Component Ptlr 32mm Persona Alply Kn Strl Lf - [id number] Implanted:Qt y: 1 on 06/12/2021 by Bruno Salazar Jr., DO at [facility] Orthopedic Implant Left: Knee [employer] [id number] 03/25/2029 [id number] / / [id number] Baseplate Tib 5d F Kn Lt Cmnt Stm Persona Tiv Strl - [id number] Implanted:Qt y: 1 on 06/12/2021 by Bruno Salazar Jr., DO at [facility] Plate Left: Knee [employer] [id number] 01/29/2031 [id number] / / [id number] Explanted Type Area Electrocardiographic Technician Device Identifier Shelf Expiration Date Model / Serial / Lot Screw Bn 25mm 2.5mm F Hex Kn Persona - Sna - [id number] Explanted:Qty: 1 on 06/12/2021 by Bruno Salazar Jr., DO at [facility] Screw Left: Knee [employer] 05/30/2031 [id number] / NA / [id number] Insurance COUNT INCLUDES THE [facility] MEDICAID COUNT INCLUDES THE [facility] MEDICAID Advance Directives * Full Code (Latest Code Status on File) Date Activated Date Inactivated Comments 09/30/2022 4:50 AM 09/30/2022 1:18 PM * Full Code Date Activated Date Inactivated Comments 06/12/2021 4:52 PM 06/12/2021 11:49 PM Care Teams Family Centered Specialist Relationship Specialty Start Date End Date Kalyani Sanches MD PCP - General Family Medicine 04/03/20
--- OUTSIDE RECORDS SUMMARY | 2025-03-23 14:54 | XMS_ITS | Encounter Summary ---
Author Organization [facility] Address [address] [place] [address] Care Team Providers Care Acetylene Burner Name Role Phone Park Perdomo MD Primary Care Provider Idalmis Kramer DIRECTOR OF BANDS Unavailable [phone] Franklin Sanchez MD Unavailable Encounter Details Date Type Department Care Team (Late st Contact Info) Description 12/12/2023 Orders Only [facility] [address] [address] Lindsay Go LPN [address] [facility] [place] [address] Social History Tobacco Use Types Packs/Day Years [...] friends, or neighbors? Once a week 02/15/20 23 How often do you get togethe r with friends or relatives? Twice a week 02/14/2023 How often do you attend chur or faith services? 1 to 4 times per year 02/14/2023 Do you belong to any clubs o r organizations such as islam groups, unions, fraternal or athletic groups, or [...] and heating? Not hard at all 02/14/2023 [facility] of Occupat ional Health - Occupational Stress [...] senior care (including now)? No 02/14/2023 Comments No Sex and Gender Information Value Date Recorded Sex Assigned at Not on file Legal Sex Female 6:46 PM EDT Gender Identity Not on file Sexual Orientation Not on file documented as of this encounter Plan of Treatment Upcoming Encounters Date Type Department Care Team (Late st Contact Info) Description 03/29/2026 9:00 AM EDT Procedure Visit [facility] [address] [facility] [place] [address] [place] [address] Kimberlee Jane PA [address] [place] [address] documented as of this encounter Procedures Procedure Name Priority Date/Time Associated Diagnosis Comments PAP SMEAR Routine 12/03/2023 12:00 AM EDT documented in this encounter Results * Pap Smear (12/03/2023 12:00 AM EDT) Swab Cervical swab / Unknown us Jodie [facility] LAB CYTOLOGY ORDERABLES Final Result EXTERNAL LAB documented in this encounter Visit Diagnoses Not on filedocumented in this encounter Care Teams Acetylene Burner Relationship Specialty Start Date End Date Conor, Park, MD [address] [place] [address] PCP - General Family Medicine 02/03/23 Franklin Sanchez MD [address] [place] [address] PCP - [facility] 10/27/23 Idalmis Kramer NP [address] [place] [address] Nurse Practitioner Family Medicine 02/03/23 documented as of this encounter
--- OUTSIDE RECORDS SUMMARY | 2025-03-23 14:54 | XMS_ITS | Encounter Summary ---
Author Organization [facility] Address [address] [place] [address] Care Team Providers Care Denitrator Name Role Phone Park Perdomo MD Primary Care Provider [phone] Idalmis Kramer FISHER MUSSEL Unavailable [phone] Franklin Sanchez MD Unavailable Encounter Details Date Type Department Care Team (Late st Contact Info) Description 01/03/2025 Abstract [facility] [address] [facility] [address] Zayra Reyes MA Social History Tobacco Use Types Packs/Day Years [...] often do you attend chur ch or yarsanism services? 1 to 4 times per year 02/14/2023 Do you belong to any clubs o r organizations such as druze groups, unions, fraternal or athletic groups, or [...] and heating? Not hard at all 02/14/2023 [facility] of Occupat ional Health - Occupational Stress [...] Description 03/29/2026 9:00 AM EDT Procedure Visit [facility] [address] [place] [address] Kimberlee Jane PA [address] [facility] [place] [address] documented as of this encounter Visit Diagnoses Not on filedocumented in this encounter Care Teams Denitrator Relationship Specialty Start Date End Date Park Perdomo MD [address] [facility] [place] [address] PCP - General Family Medicine 02/03/23 Franklin Sanchez MD [address] [facility] [address] [place] [address] PCP - [facility] [employer] M[employer]SEMBL[employer] 10/27/23 Idalmis Kramer NP [address] [place] [address] Nurse Practitioner Family Medicine 02/03/23 documented as of this encounter
--- OUTSIDE RECORDS SUMMARY | 2025-03-23 14:54 | XMS_ITS | Encounter Summary ---
Author Organization [facility] Address [address] [place] [address] Care Team Providers Care License Clerk Name Role Phone Park Perdomo MD Primary Care Provider [phone] Idalmis Kramer PILATES COORDINATOR Unavailable [phone] Franklin Sanchez MD Unavailable Reason for Visit * Reason Onset Date Comments Med Refill 03/11/2025 Ibuprofen 800mg Encounter Details Date Type Department Care Team (Late st Contact Info) Description 03/11/2025 Telephone [facility] [address] [place] [address] Jr. Bruno Salazar, DO [address] [facility] [address] [place] [address] Med Refill (Ibuprofen 800mg ) Social History Tobacco Use Types Packs/Day Years [...] often do you attend chur ch or anabaptism services? 1 to 4 times per year 02/14/2023 Do you belong to any clubs o r organizations such as rastafari groups, unions, fraternal or athletic groups, or [...] and heating? Not hard at all 02/14/2023 [facility] of Occupat ional Health - Occupational Stress [...] place to sleep or slept in a assisted (including now)? No 02/14/2023 Comments No Sex and Gender Information Value Date Recorded Sex Assigned at Not on file Legal Sex Female 6:46 PM EDT Gender Identity Not on file Sexual Orientation Not on file documented as of this encounter Miscellaneous Notes * Telephone Encounter - CHIOMA Rodriguez - 03/11/2025 1:00 PM EDT Spoke to pt and she states last office visit Dr. Salazar recommended to stop Celebrex and start taking Motrin. She would like it sen junito Dejesus in [place]. She said Logan is not suggesting surgery at this time. Possible inj in the future. She is going to hold of on inj at this time and wouldlike the motrin sent in. Pt was grateful for return call. * Telephone Encounter - CHIOMA Rodriguez - 03/11/2025 12:40 PM EDT Left ms for pt to clarify. * Telephone Encounter - THADDEUS Cash - 03/11/2025 9:15 AM EDT Pt previously on celebrex and I do not see any Motrin prescriptions in our recent visits. Can you check with pt to see if she Saw Dr. Ford for her knee and if script came from him? * Telephone Encounter - Maya Qureshi - 03/11/2025 8:04 AM EDT Jenn called and requested a refill on her Ibuprofen. Please call In to [facility] in [place] documented in this encounter Plan of Treatment Upcoming Encounters Date Type Department Care Team (Late st Contact Info) Description 03/29/2026 9:00 AM EDT Procedure Visit [facility] [address] [facility] [place] [address] Kimberlee Jane PA [address] [facility] [address] [place] [address] documented as of this encounter Visit Diagnoses Not on filedocumented in this encounter Care Teams License Clerk Relationship Specialty Start Date End Date Park Perdomo MD [address] [place] [address] PCP - General Family Medicine 02/03/23 Franklin Sanchez MD [address] [facility] [address] [place] [address] PCP - [facility] 10/27/23 Idalmis Kramer NP [address] [place] [address] Nurse Practitioner Family Medicine 02/03/23 documented as of this encounter
--- OUTSIDE RECORDS SUMMARY | 2025-03-23 14:54 | XMS_ITS | Encounter Summary ---
Author Organization [facility] Address [address] [place] [address] Care Team Providers Care Car Hop Name Role Phone Park Perdomo MD Primary Care Provider [phone] Idalmis Kramer DIRECTOR AUTOMOTIVE Unavailable [phone] Franklin Sanchez MD Unavailable Encounter Details Date Type Department Care Team (Late st Contact Info) Description 03/11/2025 Telephone [facility] [address] [place] [address] [place], [place] [address] [place] [address] Social History Tobacco Use Types Packs/Day Years [...] How often do you attend chur or jainism services? 1 to 4 times per year 02/14/2023 Do you belong to any clubs o r organizations such as synagogue groups, unions, fraternal or athletic groups, or [...] and heating? Not hard at all 02/14/2023 [facility] - Occupational Stress [...] place to sleep or slept in a half-way (including now)? No 02/14/2023 Comments No Sex and Gender Information Value Date Recorded Sex Assigned at Not on file Legal Sex Female 6:46 PM EDT Gender Identity Not on file Sexual Orientation Not on file documented as of this encounter Miscellaneous Notes * Telephone Encounter - THADDEUS Cash - 03/11/2025 1:05 PM EDT Motrin rx needed. - Per Jessica phone encounter. documented in this encounter Plan of Treatment Upcoming Encounters Date Type Department Care Team (Late st Contact Info) Description 03/29/2026 9:00 AM EDT Procedure Visit [facility] [address] [place] [address] Kimberlee Jane PA [address] [place] [address] documented as of this encounter Visit Diagnoses Diagnosis History of total left knee replacement- Primary Chronic pain of left knee documented in this encounter Care Teams Car Hop Relationship Specialty Start Date End Date Park Perdomo MD [address] [place] [address] PCP - General Family Medicine 02/03/23 Franklin Sanchez MD [address] [facility] [address] [place] [address] PCP - [facility] 10/27/23 Idalmis Kramer NP [address] [place] [address] Nurse Practitioner Family Medicine 02/03/23 documented as of this encounter
--- OUTSIDE RECORDS SUMMARY | 2025-03-23 14:54 | XMS_ITS | Encounter Summary ---
Author Organization [facility] Address [address] [place] [address] Care Team Providers Care Development Spec Name Role Phone Park Perdomo MD Primary Care Provider [phone] Idalmis Kramer INDUSTRIAL PLANT CUSTODIAN Unavailable Franklin Sanchez MD Unavailable Encounter Details Date Type Department Care Team (Late st Contact Info) Description 02/11/2023 [facility] Family Medicine [address] [place] [address] Park Perdomo MD [address] [place] [address] Social History Tobacco Use Types [...] How often do you attend chur or rastafari services? 1 to 4 times per year 02/14/2023 Do you belong to any clubs o r organizations such as denominational groups, unions, fraternal or athletic groups, or [...] and heating? Not hard at all 02/14/2023 [facility] - Occupational Stress Questionnaire Answer Date [...] PM EDT documented as of this encounter Functional Status * Audit-C Score Answer Date of Assessment Author 1 02/14/2023 12:57 PM EDT Mychart, Generic * Q1: How often do you have a drink containing alcohol? Answer Date of Assessment Author Monthly or less 02/14/2023 12:57 PM EDT Mychart, Generic * Q2: How many drinks containing alcohol do you have on a typical day when you are drinking? Answer Date of Assessment Author 1 or 2 02/14/2023 12:57 PM EDT Mychart, Generic * Q3: How often do you have six or more drinks on one occasion? Answer Date of Assessment Author Never 02/14/2023 12:57 PM EDT Mychart, Generic documented as of this encounter Plan of Treatment Upcoming Encounters Date Type Department Care Team (Late st Contact Info) Description 03/29/2026 9:00 AM EDT Procedure Visit [facility] [address] [address] Kimberlee Jane PA [address] [place] [address] documented as of this encounter Visit Diagnoses Not on filedocumented in this encounter Care Teams Development Spec Relationship Specialty Start Date End Date Park Perdomo MD [address] [place] [address] PCP - General Family Medicine 02/03/23 Franklin Sanchez MD [address] [place] [address] PCP - [facility] 10/27/23 Idalmis Kramer NP [address] [place] [address] Nurse Practitioner Family Medicine 02/03/23 documented as of this encounter
--- OUTSIDE RECORDS SUMMARY | 2025-03-23 17:26 | XMS_ITS | CCD ---
Author Organization [facility] Care Team Providers Care Plant Engineering Manager Name Role Phone KALYANI SANCHES Primary Care Physician [phone] LUCINDA ., KIMBERLEE Admitting Unavailable MYRON, DR LEDBETTER Primary Care Unavailable LUCINDA ., KIMBERLEE Attending Unavailable Kenna Bajwa Consulting Unavailable LUCINDA ., KIMBERLEE Consulting Unavailable HAY ., DR DELATORRE Attending Unavailable HAY ., DR DELATORRE Admitting Unavailable MYRON, DR LEDBETTER Primary Care Unavailable GRECHNY ., THADDEUS HODGES Consulting Unavailleonardo e HUSSEIN ., DR DELATORRE Consulting Unavailable PATRICIA CARSON Consulting Unavailable MYRON, DR LEDBETTER Primary Care Unavailable JODIE ., DR BROOKE Admitting Unavailable JODIE ., DR BROOKE Consulting Unavailable JODIE ., DR BROOKE Attending Unavailable MYRON, DR LEDBETTER Primary Care Unavailable JODIE ., DR BROOKE Admitting Unavailable JODIE ., DR BROOKE Consulting Unavailable JODIE ., DR BROOKE Attending Unavailable ROBERT, MORA CClaudette Consulting Unavailable IZABELA HARGROVE Consulting Unavailable ROBERT II, ORTIZ Consulting Unavailable MYRON, DR LEDBETTER Primary Care Unavailable BRI ., DR KOHLER Consulting Unavailable RBI ., DR KOHLER Attending Unavailable BRI ., DR KOHLER Admitting Unavailable RAFITA NOONAN Consulting Unavailable LUCINDA ., KIMBERLEE Admitting Unavailable LUCINDA ., KIMBERLEE Consulting Unavailable MYRON, DR LEDBETTER Primary Care Unavailable LUCINDA ., KIMBERLEE Attending Unavailable LUCINDA ., KIMBERLEE Consulting Unavailable MYRON, DR LEDBETTER Primary Care Unavailable LUCINDA ., KIMBERLEE Attending Unavailable LUCINDA ., KIMBERLEE Admitting Unavailable Evan GREGORY Attending Unavailable Evna GREGORY Attending Unavailable CEFERINO VILLANUEVA Referring Unavailable Evan GREGORY Attending Unavailable Park Perdomo MD Primary Care Provider Nia CATH LAB RADIOLOGY TECHNICIAN, Idalmis Zapata Unavailable Franklin Sanchez MD Unavailable Myron GORE, Kalyain Grande Primary Care Provider [phone] MYRON, KALYANI Grande Referring Unavailable MYRON, KALYANI Grande Primary Care Unavailable MYRON, KALYANI F Referring Unavailable MYRON, KALYANI F Primary Care Unavailable MYRON, KALYANI F Referring Unavailable MYRON, KALYANI Grande Primary Care Unavailable STIVEN ENRIQUEZ Attending Unavailable PRAVEEN FELICIANO Attending Unavailable STEPANIC, JR., NEHA Smith Attending Unavaila ble STEPANIC, JR., NEHA Smith Attending Unavaila ble KIMBERLEE JANE Attending Unavailable STEPANIC, JR., NEHA Smith Attending Unavaila ble STEPANIC, JR., NEHA Smith Referring Unavaila ble STEPANIC JR, NEHA Smith Referring Unavailabl e MYRON, KALYANI Grande Primary Care Unavailable STEPANIC JR, NEHA Smith Attending Unavailabl e STEPANIC JR, NEHA Smith Referring Unavailabl e MYRON, KALYANI Grande Primary Care Unavailable STEPANIC JR, NEHA Smith Attending Unavailabl e STEPANIC JR, NEHA Smith Referring Unavailabl e MYRON, KALYANI Grande Primary Care Unavailable STEPANIC JR, NEHA Smith Attending Unavailabl e STEPANIC JR, NEHA Smith Referring Unavailabl e MYRON, KALYANI Grande Primary Care Unavailable Milad Fodr II Attending UnavailMilad Mccormack II Admitting UnavailiMlad Mccormack MD Attending Provider Nia CATH LAB RADIOLOGY TECHNICIAN, Idalmis Zapata Unavailable Allergies Allergy Classification Reported Allergen(s) Allergy Type Date of Onset Reaction(s) Facility (5 sources) Acetaminophen / HYDROcodone; 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: [acetaminophen-hy drocodone] Drug Allergy 1 Eruption of skin (disorder), Dizziness, Nausea [facility] (3 sources) Doxycycline; 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: [doxycycline] Drug Allergy Unknown [facility] (20 sources) Tetracycline; 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: [tetracycline] Drug Allergy 8 Unknown, Diarrhea [facility] (1 source) Acetaminophen / HYDROcodone Drug Allergy [facility] (1 source) Doxycycline Drug Allergy [facility] (1 source) Tetracycline Drug Allergy [facility] (12 sources) Acetaminophen / HYDROcodone; 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: [HYDROCODONE-ACET AMINOPHEN] Drug Allergy 1 GI intolerance, Dizziness, Nausea Only [facility] (4 sources) Tetracyclines; 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: [TETRACYCLINES] Propensity to adverse reactions to drug 8 Diarrhea, Vomiting [facility] (2 sources) Acetaminophen Drug Allergy 5 Nausea [facility] (2 sources) HYDROcodone Drug Allergy 5 [facility] Rep[facility] Medications Current Medications Medication Drug Class(es) Dates Sig (Normalized) Sig (Original) acetaminophen 325 mg / oxyCODONE hydrochloride 5 mg oral tablet (2 sources) Opioid Agonist Start: 10-10-2022 acetaminophen-oxyc odone 325 mg-5 mg Tab Refill(s) 0 Start Date: 10/10/22 Status: Ordered [id number] 200 actuat albuterol 0.09 mg/actuat metered dose inhaler (9 sources) beta2-Adrenergic Agonist Start: 07-25-2023 End: 09-14-2024 take 2 puff(s) by inhalation every four hours for wheezing albuterol HFA (ProAir HFA) 90 mcg/act inhaler Indications: Acute bronchitis, unspecified organism Inhale 2 puffs every 4 (four) hours if needed for wheezing 18 g 1 07/25/2023 09/14/2024 Discontinued (Other) amoxicillin 500 mg oral tablet (5 sources) Penicillin-class Antibacterial Start: 05-03-2024 End: 09-14-2024 take 4 tablets by mouth once at mealtime amoxicillin (Amoxil) 500 MG tablet Indications: History of total left knee replacement 4 tabs PO once 30-60 mins before procedure with food 4 tablet 3 05/03/2024 09/14/2024 Discontinued (Other) Start: 09-04-2023 take 4 tablets by mo uth once at mealtime amoxicillin (Amoxil) 500 MG tablet Indications: History of total left knee replacement 4 tabs PO once 30-60 mins before procedure with food 4 tablet 3 09/04/2023 Active azithromycin 250 mg oral tablet (18 sources) Macrolide Antimicrobial Start: 03-02-2025 azithromycin (Zithromax Z-Derek) 250 MG tablet Indications: Sinus congestion As directed 6 tablet 03/02/2025 Active Start: 04-02-2024 End: 02-18-2025 azithromycin (Zithromax Z-Pa k) 250 MG tablet Indications: Sinus congestion As directed 6 tablet 08/06/2024 09/14/2024 Discontinued (Other) Start: 02-03-2024 azithromycin ( Zithromax Z-Derek) 250 MG tablet Indications: Upper respiratory tract infection, unspecified type As directed 6 tablet 02/03/2024 Active Start: 07-22-2023 azithromycin ( Zithromax Z-Derek) 250 MG tablet Indications: URI, acute As directed 6 tablet 0 07/22/2023 Active 24 hr buPROPion hydrochloride 300 mg extended release oral tablet (20 sources) Aminoketone Start: 02-21-2025 End: 03-23-2025 take 1 tablet by mouth once daily buPROPion XL (Wellbutrin XL) 300 MG 24 hr tablet Indications: Mood changes Take 1 tablet (300 mg) by mouth Daily Do not crush, chew, or split. 30 tablet 11 02/21/2025 Active Start: 12-10-2024 take 1 tablet by sonido every twenty-four hours Bupropion Hcl 300 mg tablet extended release 24 hr Active MG PO December 10, 2024 12:00am Start: 06-28-2024 take 1 tablet by mouth once da harjinder buPROPion XL (Wellbutrin XL) 300 MG 24 hr tablet Indications: Mood changes Take 1 tablet (300 mg) by mouth Daily Do not crush, chew, or split. 30 tablet 6 06/28/2024 Active Start: 05-11-2024 End: 05-11-2025 take 1 tablet by mouth once daily buPROPion XL (Wellbu jamel XL) 150 MG 24 hr tablet Indications: Depression with anxiety Take 1 tablet (150 mg) by mouth Daily Do not crush, chew, or split. 30 tablet 6 05/11/2024 05/11/2025 Active celecoxib 200 mg oral capsule (12 sources) Nonsteroidal Anti-inflammatory Drug Start: 06-21-2024 End: 10-25-2024 take 1 capsule by mouth once daily celecoxib (CeleBREX) 200 MG capsule Indications: Chronic pain of left knee Take 1 capsule (200 mg) by mouth Daily 90 capsule 2 07/27/2024 10/25/2024 Active Start: 02-13-2024 End: 05-13-2024 take 1 capsule by mouth once daily celecoxib (CeleBREX) 200 MG capsule Indications: Acute pain of left knee Take 1 capsule (200 mg) by mouth Daily 30 capsule 2 02/13/2024 05/13/2024 Active cetirizine hydrochloride 10 mg oral tablet (7 sources) Histamine-1 Receptor Antagonist Start: 01-07-2024 End: 01-06-2025 take 1 tablet by mouth once daily cetirizine (ZyrTEC ALLERGY) 10 MG tablet Indications: Itching Take 1 tablet (10 mg) by mouth Daily 30 tablet 11 01/07/2024 09/14/2024 Discontinued (Other) ciprofloxacin 500 mg oral tablet (2 sources) Quinolone Antimicrobial Start: 10-10-2022 ciprofloxacin 500 mg Tab Refills(s) 0 Start Date: 10/10/22 Status: Ordered citalopram 20 mg oral tablet (2 sources) Serotonin Reuptake Inhibitor Start: 10-10-2022 citalopram 20 mg Tab Refills(s) 0 Start Date: 10/10/22 Status: Ordered famotidine 20 mg oral tablet (20 sources) Histamine-2 Receptor Antagonist Start: 01-07-2024 End: 09-14-2024 take 1 tablet by mouth once daily famotidine (Pepcid) 20 MG tablet Indications: Gastroesophageal Reflux Disease , Heartburn Take 1 tablet (20 mg) by mouth Daily 30 tablet 11 02/06/2024 Active FLUoxetine 10 mg oral capsule (2 sources) Serotonin Reuptake Inhibitor Start: 06-23-2023 take 1 capsule by mouth once daily FLUoxetine (PROzac) 10 MG capsule Indications: Anxiety and depression (CMS/HCC) TAKE 1 CAPSULE BY MOUTH EVERY DAY 30 capsule 2 06/23/2023 Active hydrocortisone 25 mg/ml topical cream (1 source) Corticosteroid Start: 02-14-2023 hydrocortisone 2.5 % cream Indications: Allergic urticaria Apply topically 2 (two) times a day. 30 g 0 02/14/2023 Active ibuprofen 600 mg oral tablet (7 sources) Nonsteroidal Anti-inflammatory Drug Start: 03-11-2025 End: 06-09-2025 take 1 tablet by mouth in the morning, then take 1 tablet by mouth in the evening, then take 1 tablet by mouth at bedtime ibuprofen 600 MG tablet Indications: History of total left knee replacement , Chronic pain of left knee Take 1 tablet (600 mg) by mouth in the morning and 1 tablet (600 mg) in the evening and 1 tablet (600 mg) before bedtime. 90 tablet 2 03/11/2025 06/09/2025 Active Start: 12-10-2024 Ibuprofen 800 mg tablet Active MG PO December 10, 2024 12:00am Start: 10-11-2024 End: 11-10-2024 take 1 tablet by mouth in the morning, then take 1 tablet by mouth in the evening, then take 1 tablet by mouth at bedtime ibuprofen 800 MG tablet Indications: Chronic pain of left knee Take 1 tablet (800 mg) by mouth in the morning and 1 tablet (800 mg) in the evening and 1 tablet (800 mg) before bedtime. 90 tablet 10/11/2024 11/10/2024 ketorolac tromethamine 10 mg oral tablet (4 sources) Nonsteroidal Anti-inflammatory Drug, Cyclooxygenase Inhibitor Start: 08-17-2024 End: 09-14-2024 take 1 tablet by mouth every six hours as needed for pain and urinary tract infection and urinary tract infection ketorolac (Toradol) 10 MG tablet Indications: Urinary tract infection without hematuria, site unspecified Take 1 tablet (10 mg) by mouth every 6 (six) hours if needed for moderate pain for up to 10 doses 10 tablet 08/17/2024 09/14/2024 Discontinued (Other) Start: 10-10-2022 take 1 tablet by sonido th every four hours as needed for pain ketorolac 10 mg Tab 10 mg = 1 tab(s), Oral, q4hr, PRN for pain, # 60 tab(s), Refills(s) 0 Start Date: 10/10/22 Status: Ordered 3 ml liraglutide 6 mg/ml pen injector (2 sources) GLP-1 Receptor Agonist Start: 08-08-2023 End: 08-07-2024 inject 1.8 mg by subcutaneous injection in the morning liraglutide (Victoza) 18 MG/3ML injection Indications: Insulin resistance Inject 1.8 mg under the skin in the morning. 9 pen 0 08/08/2023 08/07/2024 Active Start: 05-02-2023 inject 0.6 mg by sub cutaneous injection in the morning, then inject 0.6 mg by subcutaneous injection once daily liraglutide (Victoza) 18 MG/3ML injection Indications: Insulin resistance , Abnormal weight gain Inject 0.6 mg under the skin in the morning. Inject 0.6 mg SubQ daily for 7 days; then inject 1.2 mg SubQ daily for 7 days; then inject 1.8 mg SubQ daily thereafter for maintenance dosage. (Maintenance dosage instructions will be used for future refills). 3 pen 2 05/02/2023 Active loratadine 10 mg oral tablet (20 sources) Start: 09-24-2023 End: 09-23-2024 take 1 tablet by mouth once daily loratadine (Claritin) 10 MG tablet Indications: Sinus congestion Take 1 tablet (10 mg) by mouth Daily 30 tablet 3 09/24/2023 Active magnesium oxide 400 mg oral capsule (2 sources) Start: 03-12-2023 End: 03-11-2024 take 1 capsule by mouth in the morning magnesium oxide 400 MG capsule Indications: Other migraine without status migrainosus, not intractable (CMS/HCC) Take 1 capsule (400 mg) by mouth in the morning and 1 capsule (400 mg) before bedtime. 720 capsule 0 03/12/2023 03/11/2024 Active meloxicam 15 mg oral tablet (4 sources) Nonsteroidal Anti-inflammatory Drug Start: 10-10-2022 meloxicam 15 mg Tab Refills(s) 0 Start Date: 10/10/22 Status: Ordered 24 hr metFORMIN hydrochloride 500 mg extended release oral tablet (20 sources) Biguanide Start: 12-10-2024 take 1 tablet by mouth every twenty-four hours Metformin 500 mg tablet extended release 24 hr Active MG PO December 10, 2024 12:00am Start: 08-12-2024 End: 08-12-2025 take 2 tablets by mouth once daily metFORMIN XR (Glucophage-XR) 500 MG 24 hr tablet Indications: Insulin resistance Take 2 tablets (1,000 mg) by mouth Daily 180 tablet 3 08/12/2024 08/12/2025 Active Start: 05-05-2024 End: 08-03-2024 take 2 tablets by mouth once daily, then take 1 tablet by mouth once daily at dinner metFORMIN XR (Glucophage-XR) 500 MG 24 hr tablet Indications: Insulin resistance Take 2 tablets (1,000 mg) by mouth Daily TAKE 1 TABLET BY MOUTH EVERY DAY WITH THE EVENING MEAL for 90 30 tablet 3 05/05/2024 08/03/2024 Active Start: 12-05-2023 take 1 tablet by sonido th once daily at dinner metFORMIN XR (Glucophage-XR) 500 MG 24 hr tablet Indications: Insulin resistance TAKE 1 TABLET BY MOUTH EVERY DAY WITH THE EVENING MEAL for 90 30 tablet 11 07/01/2023 Active Start: 10-10-2022 MetFORMIN (Eqv -Glucophage XR) 500 mg oral tablet, extended release Refills(s) 0 Start Date: 10/10/22 Status: Ordered take 1 tablet by sonido th once daily at breakfast metFORMIN XR (GLUCOPHAGE XR) 500 mg 24 hr tablet Take 1 tablet (500 mg total) by mouth daily with breakfast. Active methylPREDNISolone (18 sources) Corticosteroid Start: 09-21-2024 methylPREDNISo lone (Medrol Dospak) 4 MG tablets Indications: Acute pain of left knee Follow schedule on package instructions 21 tablet 09/21/2024 Active Start: 12-23-2023 End: 03-18-2024 methylPREDNISolone (Medrol D ospak) 4 MG tablets Indications: Poison jeanine Day 1: 6 tablets Day 2: 5 tablets Day 3: 4 tablets Day 4: 3 tablets Day 5: 2 tablets Day 6: 1 tablet 21 tablet 12/23/2023 03/18/2024 Discontinued (Therapy completed) Start: 12-23-2023 methylPREDNISo lone (Medrol Dospak) 4 MG tablets Indications: Poison jeanine Day 1: 6 tablets Day 2: 5 tablets Day 3: 4 tablets Day 4: 3 tablets Day 5: 2 tablets Day 6: 1 tablet 21 tablet 12/23/2023 Active minoxidil 10 mg oral tablet (4 sources) Arteriolar Vasodilator Start: 01-05-2025 End: 01-05-2026 take 1 tablet by mouth once daily minoxidil (Loniten) 10 MG tablet Indications: Hair thinning Take 1 tablet (10 mg) by mouth Daily 30 tablet 11 01/05/2025 01/05/2026 Active omeprazole 20 mg delayed release oral capsule (20 sources) Proton Pump Inhibitor Start: 01-31-2025 take 1 capsule by mouth before mealtime omeprazole (PriLOSEC) [address] capsule Indications: Heartburn , Gastroesophageal reflux disease, unspecified whether esophagitis present TAKE 1 CAPSULE( 20 MG) BY MOUTH IN THE MORNING BEFORE A MEAL. DO NOT CRUSH OR CHEW 90 capsule 3 01/31/2025 Active Start: 05-05-2024 End: 08-03-2024 take 1 capsule by mouth before mealtime omeprazole (PriLOSEC) [address] capsule Indications: Gastroesophageal Reflux Disease , Heartburn Take 1 capsule (20 mg) by mouth in the morning. Take before meals. Do not crush or chew.. 90 capsule 3 05/05/2024 Active Start: 02-06-2024 take 1 capsule by mo uth before mealtime omeprazole (PriLOSEC) [address] capsule Indications: Gastroesophageal Reflux Disease , Heartburn Take 1 capsule (20 mg) by mouth in the morning. Take before meals. Do not crush or chew.. 30 capsule 11 02/06/2024 Active Omeprazole 20 mg capsule,delayed release(DR/EC) (1 source) Start: 12-10-2024 Omeprazole 20 mg capsule,delayed release(DR/EC) Active MG PO December 10, 2024 12:00am ondansetron 4 mg disintegrating oral tablet (3 sources) Serotonin-3 Receptor Antagonist Start: 06-08-2024 End: 07-08-2024 take 1 tablet by mouth every six hours as needed for nausea and vomiting and nausea and nausea ondansetron ODT (Zofran-ODT) 4 MG disintegrating tablet Indications: Nausea Take 1 tablet (4 mg) by mouth every 6 (six) hours if needed for nausea or vomiting 30 tablet 2 06/08/2024 07/08/2024 Active Start: 10-10-2022 ondansetron 4 mg Dis Tab Refills(s) 0 Start Date: 10/10/22 Status: Ordered pen needle 33G x 4 mm misc (1 source) Start: 06-11-2023 End: 06-10-2024 pen needle 33G x 4 mm misc Indications: Insulin resistance Use as instructed 100 each 12 06/11/2023 06/10/2024 Active phenazopyridine hydrochloride 100 mg oral tablet (2 sources) Start: 08-17-2024 End: 09-14-2024 phenazopyridine (Pyridium) 100 MG tablet Indications: Urinary tract infection without hematuria, site unspecified Take 1 tablet (100 mg) by mouth 3 (three) times a day as needed for bladder spasms for up to 9 doses 9 tablet 08/17/2024 09/14/2024 Discontinued (Other) phentermine hydrochloride 37.5 mg oral tablet (20 sources) Sympathomimetic Amine Anorectic Start: 11-26-2023 End: 03-08-2025 take 1 tablet by mouth before mealtime phentermine (Adipex-P) 37.5 MG tablet Indications: Encounter for weight management Take 1 tablet (37.5 mg) by mouth in the morning. Take before meals. 90 tablet 12/08/2024 Active Start: 08-22-2022 End: 10-04-2023 take 1 tablet by mouth before mealtime phentermine (Adipex-P) 37.5 MG tablet Indications: Encounter for weight management Take 1 tablet (37.5 mg) by mouth in the morning. Take before meals. 30 tablet 0 09/04/2023 10/04/2023 Active Pnv #[id number] Acid-Omega3 30 mg iron-10 mg iron-1 mg capsule (1 source) Start: 12-10-2024 Pnv #30-Iron-F olic Acid-Omega3 30 mg iron-10 mg iron-1 mg capsule Active CAP PO December 10, 2024 12:00am 27-1 MG tablet (20 sources) Start: 04-02-2024 take 1 tablet by mouth once daily 27-1 MG tablet Indications: Abnormal uterine bleeding Take 1 tablet by mouth Daily 30 tablet 11 04/02/2024 Active Vit-Fe Fumarate-FA ( Plus/Iron) 27-1 MG tablet (5 sources) Start: 01-01-2024 End: 12-31-2024 take 1 tablet by mouth once daily Vit-Fe Fumarate-FA ( Plus/Iron) 27-1 MG tablet Indications: Abnormal uterine bleeding Take 1 tablet by mouth Daily 30 tablet 11 01/01/2024 12/31/2024 Active Start: 02-14-2023 End: 02-14-2024 take 1 tablet by mouth in the morning Vit-Fe Fumarate-FA ( Plus/Iron) 27-1 MG tablet Indications: Abnormal uterine bleeding Take 1 tablet by mouth in the morning. 30 tablet 11 02/14/2023 02/14/2024 Active Vit-Fe Fumarate-FA ( Vitamins) 28-0.8 MG tablet (4 sources) Start: 01-05-2025 End: 01-05-2026 take 1 tablet by mouth once daily Vit-Fe Fumarate-FA ( Vitamins) 28-0.8 MG tablet Indications: Hair thinning Take 1 tablet by mouth Daily 30 tablet 01/05/2025 01/05/2026 Active 12 hr pseudoephedrine hydrochloride 120 mg extended release oral tablet (4 sources) alpha-Adrenergic Agonist Start: 02-21-2025 End: 02-21-2026 take 1 tablet by mouth once pseudoephedrine ER (Sudafed-12 Hour) 120 MG 12 hr tablet Indications: Sinusitis, unspecified chronicity, unspecified location Take 1 tablet (120 mg) by mouth every 12 (twelve) hours Do not crush, chew, or split. 60 tablet 02/21/2025 02/21/2026 Active 0.25 mg, 0.5 mg dose 1.5 ml semaglutide 1.34 mg/ml pen injector (2 sources) Start: 10-10-2022 Ozempic 2 mg/1.5 mL (0.25 mg or 0.5 mg dose) subcutaneous solution Refill(s) 0 Start Date: 10/10/22 Status: Ordered SUMAtriptan 25 mg oral tablet (4 sources) Serotonin-1b and Serotonin-1d Receptor Agonist Start: 01-27-2025 SUMAtriptan (Imitrex) 25 MG tablet Indications: Other migraine without status migrainosus, not intractable Take 1 tablet (25 mg) by mouth 1 (one) time if needed for migraine for up to 1 dose May repeat dose once in 2 hours if no relief. Do not exceed 2 doses in 24 hours. 9 tablet 01/27/2025 Active tamsulosin hydrochloride 0.4 mg oral capsule (2 sources) alpha-Adrenergic Chang Start: 10-11-2022 tamsulosin 0.4 mg Cap Refills(s) 0 Start Date: 10/11/22 Status: Ordered tiZANidine 4 mg oral tablet (2 sources) Central alpha-2 Adrenergic Agonist Start: 10-10-2022 tiZANidine 4 mg Tab Refills(s) 0 Start Date: 10/10/22 Status: Ordered Completed/Discontinued Medications Medication Drug Class(es) Dates Sig (Normalized) Sig (Original) fluticasone propionate 0.05 mg/actuat metered dose nasal spray (3 sources) Corticosteroid Start: 09-24-2023 End: 09-23-2024 take 1 spray(s) nasal route once daily fluticasone (Flonase) 50 MCG/ACT nasal spray Indications: Sinus congestion Administer 1 spray into each nostril Daily Shake gently. Before first use, prime pump. After use, clean tip and replace cap. 16 g 3 09/24/2023 03/18/2024 Discontinued (Therapy completed) valACYclovir 500 mg oral tablet (1 source) Herpesvirus Nucleoside Analog DNA Polymerase Inhibitor, Herpes Simplex Virus Nucleoside Analog DNA Polymerase Inhibitor, Herpes Zoster Virus Nucleoside Analog DNA Polymerase Inhibitor Start: 06-30-2023 End: 09-04-2023 take 1 tablet by mouth in the morning valACYclovir (Valtrex) 500 MG tablet Indications: Cold sore Take 1 tablet (500 mg) by mouth in the morning. 30 tablet 1 06/30/2023 09/04/2023 Problems Active Problems Problem Classification Problem Date Documented Date Episodic/Chronic Administrative/socia l admission (6 sources) Patient encounter status; 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: [Persons encountering health services in other specified circumstances] 03-18-2024 Episodic Anxiety disorders (20 sources) Mixed anxiety and depressive disorder; 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: [Other specified anxiety disorders] Onset: 04-14-2017 02-03-2023 Chronic Esophageal disorders (1 source) Gastroesophageal reflux disease; 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: [Gastro-esophageal reflux disease without esophagitis] 12-10-2024 Chronic Essential hypertension (1 source) Hypertensive disorder; 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: [Essential (primary) hypertension] 12-10-2024 Chronic Immunizations and screening for infectious disease (1 source) Encounter for screening for human papillomavirus (HPV); 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: [ENC SCREENING HUMAN PAPILLOMAVIRUS] Onset: 08-27-2022 Episodic Menstrual disorders (20 sources) Excessive and frequent menstruation with regular cycle; 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: [Menorrhagia] Onset: 11-10-2022 Chronic Mood disorders (20 sources) Bipolar II disorder; 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: [Bipolar II disorder] Onset: 04-14-2017 02-03-2023 Chronic Osteoarthritis (20 sources) Osteoarthritis of knee; 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: [Osteoarthritis of knee, unspecified] Onset: 06-11-2021 02-03-2023 Chronic Other aftercare (1 source) Other intermediate teacher (current) drug therapy; 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: [OTH 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 THERAPY] Onset: 10-07-2022 Episodic Other connective tissue disease (4 sources) Presence of left artificial knee joint; 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: [Knee joint replacement] Onset: 10-16-2022 12-10-2024 Chronic Other connective tissue disease (20 sources) Artificial knee joint present; 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: [Presence of unspecified artificial knee joint] Onset: 02-03-2023 02-03-2023 Chronic Other connective tissue disease (20 sources) History of total knee arthroplasty; 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: [Presence of left artificial knee joint] Onset: 02-03-2023 02-03-2023 Chronic Other connective tissue disease (9 sources) History of left total knee replacement; 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: [Presence of left artificial knee joint] 09-04-2023 Chronic Other female genital disorders (1 source) Abnormal uterine and vaginal bleeding, unspecified; 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: [ABNORMAL UTERINE VAGINAL BLEED UNS] Onset: 11-20-2022 Chronic Other female genital disorders (20 sources) Abnormal uterine bleeding; 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: [Abnormal uterine and vaginal bleeding, unspecified] Onset: 02-03-2023 02-03-2023 Chronic Other nervous system disorders (20 sources) Difficulty walking; 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: [Difficulty in walking, not elsewhere classified] Onset: 02-03-2023 02-03-2023 Chronic Other nervous system disorders (20 sources) Chronic pain; 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: [Other chronic pain] Onset: 02-03-2023 02-03-2023 Chronic Other nervous system disorders (1 source) Other chronic pain; 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: [Other chronic pain] Onset: 11-12-2024 Chronic Other nutritional; endocrine; and metabolic disorders (20 sources) Metabolic syndrome X; 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: [Insulin resistance syndrome] Onset: 02-03-2023 02-03-2023 Chronic Other nutritional; endocrine; and metabolic disorders (4 sources) Insulin resistance; 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: [Insulin resistance] Onset: 01-05-2025 01-05-2025 Chronic Other screening for suspected conditions (not mental disorders or infectious disease) (20 sources) Endometrium thickened; 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: [Abnormal findings on diagnostic imaging of other specified body structures] Onset: 02-03-2023 02-03-2023 Chronic Other screening for suspected conditions (not mental disorders or infectious disease) (5 sources) Encounter for screening for malignant neoplasm of cervix; 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: [Patient encounter status] Onset: 08-26-2022 Episodic Other skin disorders (4 sources) Loss of hair; 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: [Nonscarring hair loss, unspecified] Onset: 01-05-2025 01-05-2025 Episodic Ovarian cyst (1 source) Other ovarian cyst, right side; 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: [OTHER OVARIAN CYST RIGHT SIDE] Onset: 10-04-2022 Episodic Residual codes; unclassified (1 source) Pain, unspecified; 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: [Pain, unspecified] Onset: 11-26-2024 Episodic Unclassified (4 sources) Chronic pain of left knee 11-09-2024 Unclassified (4 sources) History of left total knee replacement 11-09-2024 Past or Other Problems Problem Classification Problem Date Documented Da te Episodic/Chronic Abdominal pain (20 sources) Pelvic and perineal pain; 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: [Unspecified abdominal pain] Onset: 10-03-2022 Episodic Calculus of urinary tract (20 sources) Ureteric stone; 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: [Calculus of ureter] Onset: 09-30-2022 Episodic Other complications of (2 sources) Multigravida of advanced maternal age; 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: [Supervision of elderly multigravida, first trimester] Onset: 04-01-2018 04-01-2018 Episodic Other diseases of kidney and ureters (2 sources) Occlusion of ureter; 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: [Crossing vessel and stricture of ureter without hydronephrosis] Onset: 09-30-2022 09-30-2022 Episodic Other non-traumatic joint disorders (20 sources) Effusion of joint of left knee; 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: [Effusion, left knee] Onset: 02-03-2023 02-03-2023 Episodic Other non-traumatic joint disorders (20 sources) Pain in left knee; 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: [Pain in joint, lower leg] Onset: 02-03-2023 02-03-2023 Episodic Other nutritional; endocrine; and metabolic disorders (20 sources) Abnormal weight gain; 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: [Abnormal weight gain] Onset: 02-03-2023 02-03-2023 Episodic Residual codes; unclassified (2 sources) Insomnia; 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: [Insomnia, unspecified] Onset: 04-14-2017 04-14-2017 Episodic Urinary tract infections (18 sources) Urinary tract infectious disease; 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: [Urinary tract infection, site not specified] Onset: 08-17-2024 08-17-2024 Episodic Results Test Name Value Interpretation Reference Range Facility XR knee LT 3V - NOT FOR ER U Liset 12-10-2024 XR knee LT 3V - NOT FOR ER USE [facility] [address] [place] [address] XRay Report Signed Patient: Jenn Benson MR#: [id number] 70 : 1975 Acct:[id number] Age/Sex: 49 / F ADM Date: 12/10/24 [place] [facility] [place] Type: [facility] Attending Dr: Milad Ford II, MD Copies to: Milad Ford MD Ordering Provider: Milad Ford MD Date of Service: 12/10/24 XR/XR pelvis 1-2V: Z96.652 - Presence of left artificial knee joint ([id number]) XR/XR knee LT 3V - NOT FOR ER USE: Z96.652 - Presence of left artificial knee joint AP PELVIS: , Left knee 3 views CLINICAL HISTORY: Left TKA pain COMPARISON: None Pelvis demonstrates no acute bony process or significant degenerative change of the hips. Left knee demonstrates TKA without radiographic complication. No acute bony process. XR/XR pelvis 1-2V IMPRESSION: NO HARDWARE COMPLICATION. Impression dictated by: Charlie West Jr., Mik 12/10/2024 10:16 AM Dictation Location: [place] [address] Transcribed By: [facility] 12/10/24 1016 Dictated By: Charlie West Jr, DO 12/10/24 1016 Signed By: 12/10/24 1016 Normal [facility] CBC AND AUTO DIFFon 11-13-19 25 ABSOLUTE BASOPHIL 0.1 X10E9/L Normal 0.0-0.2 [facility] Comment on above: Performed By: #### C BCA, 1987-5, HA1C, CMP, 12350-4, 3016-3, 2093-3 #### [facility] ([id number]) [address], [address] [place] [address] ABSOLUTE NEUTROPHIL 4.1 X10E9/L Normal 1.5-6.6 [facility] Comment on above: Performed By: #### C FESTUS, 1987-11, HA1C, CMP, 95839-5, 3015-09, 2092-09 #### [facility] ([id number]) [address], [address] [place] [address] Basophils/100 WBC (Bld) 0.9 % Normal [facility] Comment on above: Performed By: #### C FESTUS, 1987-11, HA1C, CMP, 41582-7, 3015-09, 2092-09 #### [facility] ([id number]) [address], [address] [place] [address] Eosinophils (Bld) [#/Vol] 0.1 10*3/uL Normal 0.0-0.4 [facility] Comment on above: Performed By: #### C EFSTUS, 1987-11, HA1C, CMP, 23486-7, 3015-09, 2092-09 #### [facility] ([id number]) [address], [address] [place] [address] Eosinophils/100 WBC (Bld) 2.1 % Normal [facility] Comment on above: Performed By: #### C FESTUS, 1987-11, HA1C, CMP, 49500-2, 3015-09, 2092-09 #### [facility] ([id number]) [address], [address] [place] [address] Erythrocyte distribution width (RBC) [Ratio] 13.4 % Normal 11.5-15.0 [facility] Comment on above: Performed By: #### C FESTUS, 1987-11, HA1C, CMP, 24887-4, 3015-09, 2092-09 #### [facility] ([id number]) [address], [address] [place] [address] Hematocrit (Bld) [Volume fraction] 37.9 % Normal 35-47 [facility] Comment on above: Performed By: #### C BCA, 1987-11, HA1C, CMP, 60783-2, 3, 2092-09 #### [facility] ([id number]) [address], [address] [place] [address] Hemoglobin (Bld) [Mass/Vol] 13.2 g/dL Normal 11.7-15.5 [facility] Comment on above: Performed By: #### Sarah MORTENSEN, 1987-11, HA1C, CMP, 39960-6, 3, 2092-09 #### [facility] ([id number]) [address], [address] [place] [address] Lymphocytes (Bld) [#/Vol] 1.8 10*3/uL Normal 1.0-3.5 [facility] Comment on above: Performed By: #### Sarah MORTENSEN, 1987-11, HA1C, CMP, 04303-2, 3015-09, 2092-09 #### [facility] ([id number]) [address], [address] [place] [address] Lymphocytes/100 WBC (Bld) 27.2 % Normal [facility] Comment on above: Performed By: #### Sarah MORTENSEN, 1987-11, HA1C, CMP, 06823-3, 3015-09, 2092-09 #### [facility] ([id number]) [address], [address] [place] [address] MCH (RBC) [Entitic mass] 30.5 pg Normal 27-34 [facility] Comment on above: Performed By: #### Sarah MORTENSEN, 1987-11, HA1C, CMP, 21909-1, 3015-09, 2092-09 #### [facility] ([id number]) [address], [address] [place] [address] MCHC (RBC) [Mass/Vol] 34.7 g/dL Normal 32-36 [facility] Comment on above: Performed By: #### Sarah MORTENSEN, 1987-11, HA1C, CMP, 71659-0, 3015-09, 2092-09 #### [facility] ([id number]) [address], [address] [place] [address] MCV (RBC) [Entitic vol] 88 fL Normal 80-100 [facility] Comment on above: Performed By: #### Sarah MORTENSEN, 1987-11, HA1C, CMP, 98184-9, 3015-09, 2092-09 #### [facility] ([id number]) [address], [address] [place] [address] Monocytes (Bld) [#/Vol] 0.5 10*3/uL Normal 0-0.9 [facility] Comment on above: Performed By: #### Sarah MORTENSEN, 1987-11, HA1C, CMP, 25186-6, 3015-09, 2092-09 #### [facility] ([id number]) [address], [address] [place] [address] Monocytes/100 WBC (Bld) 8.0 % Normal [facility] Comment on above: Performed By: #### Sarah MORTENSEN, 1987-11, HA1C, CMP, 00190-4, 3015-09, 2092-09 #### [facility] ([id number]) [address], [address] [place] [address] Neutrophils/100 WBC (Bld) 61.8 % Normal [facility] Comment on above: Performed By: #### Sarah MORTENSEN, 1987-11, HA1C, CMP, 66941-5, 3015-09, 2092-09 #### [facility] ([id number]) [address], [address] [place] [address] Platelet mean volume (Bld) [Entitic vol] 9.3 fL Normal 7-12 [facility] Comment on above: Performed By: #### Sarah MORTENSEN, 1987-11, HA1C, CMP, 69983-6, 3015-09, 2092-09 #### [facility] ([id number]) [address], [address] [place] [address] Platelets (Bld) [#/Vol] 298 10*3/uL Normal 150-450 [facility] Comment on above: Performed By: #### C FESTUS, 1987-11, HA1C, CMP, 56397-1, 3015-09, 2092-09 #### [facility] ([id number]) [address], [address] [place] [address] RBC COUNT 4.31 X10E12/L Normal 3.80-5.20 [facility] Comment on above: Performed By: #### C FESTUS, 1987-11, HA1C, CMP, 18263-5, 3015-09, 2092-09 #### [facility] ([id number]) [address], [facility] [address] [place] [address] WBC (Bld) [#/Vol] 6.6 10*3/uL Normal 4.0-11.0 [facility] Comment on above: Performed By: #### C FESTUS, 1987-11, HA1C, CMP, 30532-4, 3015-09, 2092-09 #### [facility] ([id number]) [address], [facility] [address] [place] [address] CBC W Auto Differential pane l (Bld)on 11-12-2024 ABSOLUTE BASOPHIL 0.1 [facility] Comment on above: PERFORMED AT [facility] [address],[place] [address] The copy-to physician of this order is NEHA Bowles ; , ; Basophils/100 WBC (Bld) 0.9 % [facility] Eosinophils (Bld) [#/Vol] 0.1 10*3/uL [facility] Eosinophils/100 WBC (Bld) 2.1 % [facility] Erythrocyte distribution width (RBC) [Ratio] 13.4 % 11.5 - 15.0 % [facility] Hematocrit (Bld) [Volume fraction] 37.9 % 35 - 47 % [facility] Hemoglobin (Bld) [Mass/Vol] 13.2 g/dL 11.7 - 15.5 g/dL [facility] Lymphocytes (Bld) [#/Vol] 1.8 10*3/uL [facility] Lymphocytes/100 WBC (Bld) 27.2 % [facility] MCH (RBC) [Entitic mass] 30.5 pg 27 - 34 pg [facility] MCHC (RBC) [Mass/Vol] 34.7 g/dL 32 - 36 g/dL [facility] MCV (RBC) [Entitic vol] 88 fL 80 - 100 fL [facility] Monocytes (Bld) [#/Vol] 0.5 10*3/uL [facility] Monocytes/100 WBC (Bld) 8 % [facility] Neutrophils (Bld) [#/Vol] 4.1 10*3/uL [facility] Neutrophils/100 WBC (Bld) 61.8 % [facility] Platelet mean volume (Bld) [Entitic vol] 9.3 fL 7 - 12 fL [facility] Platelets (Bld) [#/Vol] 298 10*3/uL [facility] RBC (Bld) [#/Vol] 4.31 10*6/uL [facility] WBC corrected for nucl RBC Auto (Bld) [#/Vol] 6.6 [facility] CHOLESTEROLon 11-12-2024 Cholesterol [Mass/Vol] 246 mg/dL High 150-200 [facility] Comment on above: Performed By: #### C FESTUS, 1987-11, HA1C, CMP, 83987-5, 3015-09, 2092-09 #### [facility] ([id number]) [address] [facility], [address] [place] [address] COMPREHENSIVE METABOLIC PANE Colt 11-12-2024 Albumin [Mass/Vol] 4.5 g/dL Normal 3.2-5.3 [facility] Comment on above: Performed By: #### C FESTUS, 1987-11, HA1C, CMP, 39801-7, 6-3, 2092-09 #### [facility] ([id number]) [address] [facility] [address], [address] [place] [address] ALP [Catalytic activity/Vol] 70 U/L Normal 39-130 [facility] Comment on above: Performed By: #### C BCA, 1987-11, HA1C, CMP, 13964-0, 3015-09, 2092-09 #### [facility] ([id number]) [address], [address] [place] [address] ALT [Catalytic activity/Vol] 15 U/L Normal 0-31 [facility] Comment on above: Performed By: #### C BCA, 1987-11, HA1C, CMP, 01147-1, 3015-09, 2092-09 #### [facility] ([id number]) [address], [address] [place] [address] Anion gap [Moles/Vol] 10 mmol/L Normal 5-15 [facility] Comment on above: Performed By: #### Sarah BCA, 1987-11, HA1C, CMP, 77767-8, 3015-09, 2092-09 #### [facility] ([id number]) [address], [address] [place] [address] AST [Catalytic activity/Vol] 14 U/L Normal 0-41 [facility] Comment on above: Performed By: #### C BCA, 1987-11, HA1C, CMP, 14141-0, 3015-09, 2092-09 #### [facility] ([id number]) [address], [address] [place] [address] Bilirubin [Mass/Vol] 0.5 mg/dL Normal 0.3-1.2 [facility] Comment on above: Performed By: #### C BCA, 1987-11, HA1C, CMP, 57442-2, 3015-09, 2092-09 #### [facility] ([id number]) [address], [address] [place] [address] Calcium [Mass/Vol] 8.9 mg/dL Normal 8.5-10.5 [facility] Comment on above: Performed By: #### C BCA, 1987-11, HA1C, CMP, 55058-6, 3, 2092-09 #### [facility] ([id number]) [address], [address] [place] [address] Chloride [Moles/Vol] 106 mmol/L Normal 98-109 [facility] Comment on above: Performed By: #### C BCA, 1987-11, HA1C, CMP, 56534-4, 3, 2092-09 #### [facility] ([id number]) [address], [address] [place] [address] CO2 [Moles/Vol] 25 mmol/L Normal 22-32 [facility] Comment on above: Performed By: #### C BCA, 1987-11, HA1C, CMP, 46217-9, 3015-09, 2092-09 #### [facility] ([id number]) [address], [address] [place] [address] Creatinine [Mass/Vol] 0.61 mg/dL Normal 0.40-1.00 [facility] Comment on above: Result Comment: METH OD TRACEABLE TO IDMS STANDARD Performed By: #### C BCA, 1987-11, HA1C, CMP, 30988-4, 3, 2092-09 #### [facility] ([id number]) [address], [address] [place] [address] eGFR (CKD-EPI) NON-RACE DEPENDENT >90 Normal >59 [facility] Comment on above: Result Comment: Reported eGFR is based on the CKD-EPI 2020 equation that does not use a race coefficient. Performed By: #### C BCA, 1987-11, HA1C, CMP, 00717-7, 3, 2092-09 #### [facility] ([id number]) [address], [address] [place] [address] Glucose [Mass/Vol] 99 mg/dL Normal 65-99 [facility] Comment on above: Performed By: #### C BCA, 1987-11, HA1C, CMP, 53609-4, 3, 2092-09 #### [facility] ([id number]) [address], [address] [place] [address] Potassium [Moles/Vol] 4.1 mmol/L Normal 3.5-5.0 [facility] Comment on above: Performed By: #### C BCA, 1987-11, HA1C, CMP, 78482-5, 3015-09, 2092-09 #### [facility] ([id number]) [address], [address] [place] [address] Protein [Mass/Vol] 7.0 g/dL Normal 6.0-8.0 [facility] Comment on above: Performed By: #### C BCA, 1987-11, HA1C, CMP, 00320-3, 3015-09, 2092-09 #### [facility] ([id number]) [address], [address] [place] [address] Sodium [Moles/Vol] 141 mmol/L Normal 134-146 [facility] Comment on above: Performed By: #### C BCA, 1987-11, HA1C, CMP, 74270-0, 3015-09, 2092-09 #### [facility] ([id number]) [address], [address] [place] [address] Urea nitrogen [Mass/Vol] 10 mg/dL Normal 5-23 [facility] Comment on above: Performed By: #### C BCA, 1987-11, HA1C, CMP, 24371-3, 3, 2092-09 #### [facility] ([id number]) [address], [address] [place] [address] CRP [Mass/Vol]on 11-12-2024 C REACTIVE PROTEIN 0.3 mg/dL Normal 0.000-0.744 [facility] Comment on above: Performed By: #### C BCA, 1987-11, HA1C, CMP, 88152-9, 3, 2092-09 #### [facility] ([id number]) [address], [address] [place] [address] ESR Photometric method (Bld) [Velocity]on 11-12-2024 ESR, ERYTHROCYTE SEDIMENTATION RATE 1 mm/h Normal 0-20 [facility] Comment on above: Performed By: #### C BCA, 1987-11, HA1C, CMP, 78381-9, 3015-09, 2092-09 #### [facility] ([id number]) [address], [address] [place] [address] HGB A1C (GLYCO-HGB)on 2024 Glucose [Mass/Vol] 103 mg/dL Normal [facility] Comment on above: Performed By: #### C BCA, 1987-11, HA1C, CMP, 03193-8, 3015-09, 2092-09 #### [facility] ([id number]) [address], [address] [place] [address] HbA1c (Bld) [Mass fraction] 5.2 % Normal 4.4-5.6 [facility] Comment on above: Result Comment: NOTE ADA Guidelines Result HgbA1c Normal : less than 5.7 % Prediabetes : 5.7 % to 6.4 % Diabetes : > 6.4 % Use with caution in patients with abnormal hemoglobin variants as the half-life of red blood cells and in vivo glycation rates are affected. Performed By: #### C BCA, 1987-11, HA1C, CMP, 72113-4, 3, 2092-09 #### [facility] ([id number]) [address], [address] [place] [address] TSH Qnon 11-12-2024 TSH 1.83 uIU/mL Normal 0.49-4.67 [facility] Comment on above: Performed By: #### C BCA, 1987-5, HA1C, CMP, 73253-0, 3016-3, 3-3 #### [facility] ([id number]) [address] [place] [address], [address] [place] [address] CBC AUTO DIFFon 11-15-2022 BASO # 0.1 103/ul Normal 0.0-0.1 [facility] Comment on above: Performed By: #### C BC #### [facility] [address] [place] [address] [address] Ricarda Chiang Basophils/100 WBC (Bld) 0.8 % Normal 0.2-2.0 [facility] Comment on above: Performed By: #### C BC #### [facility] [address] [place] [address] [address] Ricarda Chiang EO # 0.1 103/ul Normal 0.0-0.7 [facility] Comment on above: Performed By: #### C BC #### [facility] [address] [address] [address] Ricarda Chiang Eosinophils/100 WBC (Bld) 1.4 % Normal 0.9-7.0 [facility] Comment on above: Performed By: #### C BC #### [facility] [address] [place] [address] [address] Ricarda Chiang Erythrocyte distribution width (RBC) [Ratio] 12.7 % Normal 11.0-15.0 [facility] Comment on above: Performed By: #### C BC #### [facility] [address] [address] [address] Ricarda Chiang Hematocrit (Bld) [Volume fraction] 38.3 % Normal 36.0-48.0 [facility] Comment on above: Performed By: #### C BC #### [facility] [address] [address] [address] Ricarda Chiang Hemoglobin (Bld) [Mass/Vol] 12.4 g/dL Normal 12.0-16.0 [facility] Comment on above: Performed By: #### C BC #### [facility] [address] [place] [address] Dr. Ricarda Chiang IG # 0.03 10e3/ul Normal 0.00-0.03 [facility] Comment on above: Performed By: #### C BC #### [facility] [address] [place] [address] Dr. Ricarda Chiang IG % 0.5 % Normal 0.0-0.5 [facility] Comment on above: Performed By: #### C BC #### [facility] [address] [place] [address] Dr. Ricarda Chiang LYMPH # 1.5 103/ul Normal 1.2-3.8 [facility] Comment on above: Performed By: #### C BC #### [facility] [address] [place] [address] Dr. Ricarda Chiang Lymphocytes/100 WBC (Bld) 23.2 % Normal 20.5-60.0 [facility] Comment on above: Performed By: #### C BC #### [facility] [address] [place] [address] Dr. Ricarda Chiang MANUAL DIFF REQ NO Normal [facility] Comment on above: Performed By: #### C BC #### [facility] [address] [place] [address] Dr. Ricarda Chiang MCH (RBC) [Entitic mass] 27.8 pg Normal 26.7-34.0 [facility] Comment on above: Performed By: #### C BC #### [facility] [address] [place] [address] Dr. Ricarda Chiang MCHC (RBC) [Mass/Vol] 32.4 g/dL Normal 29.9-35.2 [facility] Comment on above: Performed By: #### C BC #### [facility] [address] [place] [address] Dr. Ricarda Chiang MCV (RBC) [Entitic vol] 85.9 fL Normal 81.0-99.0 [facility] Comment on above: Performed By: #### C BC #### [facility] [address] [place] [address] Dr. Ricarda Chiang MONO # 0.5 103/ul Normal 0.3-0.8 [facility] Comment on above: Performed By: #### C BC #### [facility] [address] [place] [address] Dr. Ricarda Chiang Monocytes/100 WBC (Bld) 7.5 % Normal 1.7-12.0 [facility] Comment on above: Performed By: #### C BC #### [facility] [address] [place] [address] Dr. Ricarda Chiang NEUT # 4.3 103/ul Normal 1.4-6.5 [facility] Comment on above: Performed By: #### C BC #### [facility] [address] [place] [address] Dr. Ricarda Chiang Neutrophils/100 WBC (Bld) 66.6 % Normal 43.0-75.0 [facility] Comment on above: Performed By: #### C BC #### [facility] [address] [place] [address] Dr. Ricarda Chiang Platelet mean volume (Bld) [Entitic vol] 10.3 fL Normal 9.5-13.5 [facility] Comment on above: Performed By: #### C BC #### [facility] [address] [place] [address] Dr. Ricarda Chiang PLT 320 103/ul Normal 150-450 [facility] Comment on above: Performed By: #### C BC #### [facility] [address] [place] [address] Dr. Ricarda Chiang RBC 4.46 106/ul Normal 4.20-5.40 [facility] Comment on above: Performed By: #### C BC #### [facility] [address] [place] [address] Dr. Ricarda Chiang WBC 6.4 103/ul Normal 4.0-11.0 [facility] Comment on above: Performed By: #### C BC #### [facility] [address] [address] [address] Ricarda Chiang PREG QUANT HCGon 11-15-2022 HCG QUANT <1 Normal [facility] Comment on above: Performed By: #### F T4 #### [facility] [address] [place], [place] [address] Dr. Ricarda Chinag HCG RANGE SEE BELOW Normal [facility] Comment on above: Result Comment: 5-50 0.2-1 WEEK 50-500 1-2 WEEKS 100-5,000 2-3 WEEKS 500-10,000 3-4 WEEKS 1,000-50,000 4-5 WEEKS 10,000-100,000 5-6 WEEKS 15,000-200,000 6-8 WEEKS 10,000-100,000 2-3 MONTHS Performed By: #### F T4 #### [facility] [facility] [address] [place] [address] Dr. Ricarda Chiang Provider Letteron 10-30-2022 Provider Letter (Inserted Image. Gina ble to display) October 30, 2022 JENN BENSON [address] [place] [id number] JENN BENSON 1975 Dear Ms. Benson , We have been trying to reach you with no success. It is important that you return our call regarding the concern of blood in the urine upon receiving this letter. Also, at the time of your call, please provide us with your current information. Please call our office at [phone]. Thank you for your prompt attention to this matter. Sincerely, [facility] [address] [place] [id number] Normal [facility] ED Note-Physicianon 10-23-19 ED Note-Physician [id number] D:127 Normal [facility] RAD - CT Reporton 10-22-2022 RAD - CT Report [id number] D:127 Normal [facility] RAD - Ultrasound Reporton RAD - Ultrasound Report [id number] D:127 Normal [facility] CALCULI, URINARYon 3 2,8 Dihydroxyadenine Normal [facility] Comment on above: Performed By: #### C ALCULI #### [facility] [address] [address] [address] Ricarda Chiang Ammonium Acid Urate Normal [facility] Comment on above: Performed By: #### C ALCULI #### [facility] [address] [address] [address] Ricarda Chiang Bilirubin Ql (U) [facility] Comment on above: Performed By: #### C ALCULI #### [facility] [address] [address] [address] Ricarda Chiang Ca Oxalate Dihydrate 40 % [facility] Comment on above: Performed By: #### C ALCULI #### [facility] [address] [address] [address] Ricarda Chiang CaHPO4 (Brushite) [facility] Comment on above: Performed By: #### C ALCULI #### [facility] [address] [address] [address] Ricarda Chiang Calcium Bilirubinate [facility] Comment on above: Performed By: #### C ALCULI #### [facility] [address] [address] [address] Ricarda Chiang Calcium Carbonate [facility] Comment on above: Performed By: #### C ALCULI #### [facility] [address] [address] [address] Ricarda Chiang Calcium Oxalate Monohydrate 60 % [facility] Comment on above: Performed By: #### C ALCULI #### [facility] [address] [address] [address] Ricarda Chiang Calcium Palmitate [facility] Comment on above: Performed By: #### C ALCULI #### [facility] [address] [address] [address] Ricarda Chiang Calcium Phosphate [facility] Comment on above: Performed By: #### C ALCULI #### [facility] [address] [address] [address] Ricarda Chiang Calcium Stearate Normal [facility] Comment on above: Performed By: #### C ALCULI #### [facility] [address] [address] [address] Ricarda Chiang Carbonate Apatite Normal [facility] Comment on above: Performed By: #### C ALCULI #### [facility] [address] [address] [address] Ricarda Chiang Cellular Material Normal [facility] Comment on above: Performed By: #### C ALCULI #### [facility] [address] [address] [address] Ricarda Chiang Cholesterol [facility] Comment on above: Performed By: #### C ALCULI #### [facility] [address] [place] [address] Dr. Ricarda Chiang Color (U) Brown Normal [facility] Comment on above: Performed By: #### C ALCULI #### [facility] [address] [address] [address] Ricarda Chiang Comment [facility] Comment on above: Performed By: #### C ALCULI #### [facility] [address] [address] [address] Ricarda Chiang Comment Comment Normal [facility] Comment on above: Result Comment: Calc ulus received wet. Wet calculi must be dried before analysis, which delays reporting of results. Leaving calculi wet (such as water, saline, blood, urine) may lead to changes in composition. Performed By: #### C ALCULI #### [facility] [address] [address] [address] Ricarda Chiang Comment: Comment Normal [facility] Comment on above: Result Comment: Phys chaya questions regarding Calculi Analysis contact [facility] at: [phone]. Performed By: #### C ALCULI #### [facility] [address] [address] [address] Ricarda Chiang Composition Comment [facility] Comment on above: Result Comment: Perc entage (Represents the % composition) Performed By: #### C ALCULI #### [facility] [address] [address] [address] Ricarda Chiang Cystine Normal [facility] Comment on above: Performed By: #### C ALCULI #### [facility] [address] [address] [address] Ricarda Chiang Disclaimer: Comment Normal [facility] Comment on above: Result Comment: This test was developed and its performance characteristics determined by [facility]. It has not been cleared or approved by the Food and Drug Administration. Performed By: #### C ALCULI #### [facility] [address] [address] [address] Ricarda Chiang Dried Blood [facility] Comment on above: Performed By: #### C ALCULI #### [facility] [address] [place] [address] Dr. Ricarda Chiang Drug or Metabolite Normal [facility] Comment on above: Performed By: #### C ALCULI #### [facility] [address] [place] [address] Dr. Ricarda Chiang Hydroxyapatite [facility] Comment on above: Performed By: #### C ALCULI #### [facility] [address] [place] [address] Dr. Ricarda Chiang Mg NH4 PO4 (Struvite) [facility] Comment on above: Performed By: #### C ALCULI #### [facility] [address] [place] [address] Dr. Ricarda Chiang MgHPO4 (Newberyite) Normal [facility] Comment on above: Performed By: #### C ALCULI #### [facility] [address] [place] [address] Dr. Ricarda Chiang Other component(s) Normal [facility] Comment on above: Performed By: #### C ALCULI #### [facility] [address] [place] [address] Dr. Ricarda Chiang PDF . Normal [facility] Comment on above: Performed By: #### C ALCULI #### [facility] [address] [place] [address] Dr. Ricarda Chiang Photo Comment [facility] Comment on above: Result Comment: Phot ograph will follow under a separate cover Performed By: #### C ALCULI #### [facility] [address] [address] [address] Ricarda Chiang Please note: Comment Normal [facility] Comment on above: Result Comment: Calc michael report will follow via computer, mail or circulation librarian delivery. Performed By: #### C ALCULI #### [facility] [address] [address] [address] Ricarda Chiang Size 6x4 [facility] Comment on above: Result Comment: Sing le piece received. Performed By: #### C ALCULI #### [facility] [address] [address] [address] Ricarda Chiang Sodium Acid Urate [facility] Comment on above: Performed By: #### C ALCULI #### [facility] [address] [address] [address] Ricarda Chiang Source Comment [facility] Comment on above: Result Comment: Righ t Ureter Performed By: #### C ALCULI #### [facility] [address] [address] [address] Ricarda Chiang Triamterene [facility] Comment on above: Performed By: #### C ALCULI #### [facility] [address] [address] [address] Ricarda Chiang Uric Acid [facility] Comment on above: Performed By: #### C ALCULI #### [facility] [address] [address] [address] Ricarda Chiang Uric Acid Dihydrate Normal [facility] Comment on above: Performed By: #### C ALCULI #### [facility] [address] [address] [address] Ricarda Chiang Weight 27 mg [facility] Comment on above: Performed By: #### C ALCULI #### [facility] [address] [address] [address] Ricarda Chiang Xanthine [facility] Comment on above: Performed By: #### C ALCULI #### [facility] [address] [address] [address] Ricarda Chiang Operative Reporton Operative Report [id number] :127 Normal [facility] Ambulatory Visit Summaryon 0 10-11-2022 Ambulatory Visit Summary JENN BENSON :1975 Visit Date:10/11/2022 Ambulatory Visit Instructions Your Diagnosis Ureteral stone Tests Performed Urnls Dip Stick Auto w/o Microscopy POC 90856 Your Care Team Attending Physician - BRI GORE, Evan Gutierrez Primary Care Physician - MYRON GORE, KALYANI Grande Referring Physician - CEFERINO MOURA This Is Your Medications List Contact prescribing physician if questions or concerns acetaminophen-oxycodone (acetaminophen-oxycodon e 325 mg-5 mg Tab) ciprofloxacin (ciprofloxacin 500 mg Tab) citalopram (citalopram 20 mg Tab) ketorolac (ketorolac 10 mg Tab) meloxicam (meloxicam 15 mg Tab) metformin (MetFORMIN (Eqv-Glucophage XR) 500 mg oral tablet, extended release) ondansetron (ondansetron 4 mg Dis Tab) phentermine (phentermine 37.5 mg Tab) semaglutide (Ozempic 2 mg/1.5 mL (0.25 mg or 0.5 mg dose) subcutaneous solution) tamsulosin (tamsulosin 0.4 mg Cap) tizanidine (tiZANidine 4 mg Tab) Procedures Performed Total replacement of left knee joint. Discharge Vitals Heart Rate (Peripheral) 101 Blood Pressure 151/81 Height 162 cm Height 64 in Weight 80 kg Weight 176 lb BMI 30.48 What to do next You Need to Schedule the Following Appointments Follow Up with BRI GORE, DAPHNE Melendez When: Where: [address] [place] [address]- Medications What How Much When Instructions Unchanged acetaminophen-oxycodone (acetaminophen-oxycodon e 325 mg-5 mg Tab) Contact prescribing physician if questions or concerns Unchanged ciprofloxacin (ciprofloxacin 500 mg Tab) Contact prescribing physician if questions or concerns Unchanged citalopram (citalopram 20 mg Tab) Contact prescribing physician if questions or concerns Unchanged ketorolac (ketorolac 10 mg Tab) 1 Tablets By Mouth Every 4 hours as needed for for pain Contact prescribing physician if questions or concerns Unchanged meloxicam (meloxicam 15 mg Tab) Contact prescribing physician if questions or concerns Unchanged metformin (MetFORMIN (Eqv-Glucophage XR) 500 mg oral tablet, extended release) Contact prescribing physician if questions or concerns Unchanged ondansetron (ondansetron 4 mg Dis Tab) Contact prescribing physician if questions or concerns Unchanged phentermine (phentermine 37.5 mg Tab) Contact prescribing physician if questions or concerns Unchanged semaglutide (Ozempic 2 mg/ 1.5 mL (0.25 mg or 0.5 mg dose) subcutaneous solution) Contact prescribing physician if questions or concerns Unchanged tamsulosin (tamsulosin 0.4 mg Cap) Contact prescribing physician if questions or concerns Unchanged tizanidine (tiZANidine 4 mg Tab) Contact prescribing physician if questions or concerns Test Results Urnls Dip Stick Auto w/o Microscopy POC 27625 (10/11/2022) Bilirubin Urine Dipstick - Negative Blood Urine Dipstick - 3+ Large Glucose Urine Dipstick - Negative Ketones Urine Dipstick - Negative Leukocytes Urine Dipstick - Negative Nitrite Urine Dipstick - Negative Protein Urine Dipstick - 1+ (30 mg/dl) Specific Brook Urine Dipstick - >=1.030 Urine Appearance Urine Dipstick - Clear Urine Color Urine Dipstick - Yellow Urobilinogen Urine Dipstick - Normal 0.2-1 EU/dl pH Urine Dipstick - 5 Allergies Vicodin (Rash) doxycycline (Unknown) tetracycline (Unknown) Problems Ongoing - Any problem that you are currently receiving treatment for. Kidney stone Ureteral stone Education Materials Kidney Stones Kidney stones are rock-like masses that form inside of the kidneys. Kidneys are organs that make pee (urine). A kidney stone may move into other parts of the urinary tract, including: ? The tubes that connect the kidneys to the bladder (ureters). ? The bladder. ? The tube that carries urine out of the body (urethra). Kidney stones can cause very bad pain and can block the flow of pee. The stone usually leaves your body (passes) through your pee. You may need to have a doctor take out the stone. What are the causes? Kidney stones may be caused by: ? A condition in which certain glands make too much parathyroid hormone (primary hyperparathyroidism). ? A buildup of a type of crystals in the bladder made of a chemical called uric acid. The body makes uric acid when you eat certain foods. ? Narrowing (stricture) of one or both of the ureters. ? A kidney blockage that you were born with. ? Past surgery on the kidney or the ureters, such as gastric bypass surgery. What increases the risk? You are more likely to develop this condition if: ? You have had a kidney stone in the past. ? You have a family history of kidney stones. ? You do not drink enough water. ? You eat a diet that is high in protein, salt (sodium), or sugar. ? You are overweight or very overweight (obese). What are the signs or symptoms? Symptoms of a kidney stone may include: ? Pain in the side of the belly, ri (more content not included)... Normal [facility] Consent for Procedure/Surger yon 10-11-2022 Consent for Procedure/Surgery [id number] :127 Normal [facility] PREG HCG QUALon 10-11-2022 , QUAL Negative Normal NEGATIVE [facility] Comment on above: Performed By: #### F T4 #### [facility] [address] [place] [address] Dr. Ricarda Chiang Patient Educationon 10-12-19 23 Patient Education Urology Kidney Stones Kidney stones are rock-like masses that form inside of the kidneys. Kidneys are organs that make pee (urine). A kidney stone may move into other parts of the urinary tract, including: ? The tubes that connect the kidneys to the bladder (ureters). ? The bladder. ? The tube that carries urine out of the body (urethra). Kidney stones can cause very bad pain and can block the flow of pee. The stone usually leaves your body (passes) through your pee. You may need to have a doctor take out the stone. What are the causes? Kidney stones may be caused by: ? A condition in which certain glands make too much parathyroid hormone (primary hyperparathyroidism). ? A buildup of a type of crystals in the bladder made of a chemical called uric acid. The body makes uric acid when you eat certain foods. ? Narrowing (stricture) of one or both of the ureters. ? A kidney blockage that you were born with. ? Past surgery on the kidney or the ureters, such as gastric bypass surgery. What increases the risk? You are more likely to develop this condition if: ? You have had a kidney stone in the past. ? You have a family history of kidney stones. ? You do not drink enough water. ? You eat a diet that is high in protein, salt (sodium), or sugar. ? You are overweight or very overweight (obese). What are the signs or symptoms? Symptoms of a kidney stone may include: ? Pain in the side of the belly, right below the ribs (flank pain). Pain usually spreads (radiates) to the groin. ? Needing to pee often or right away (urgently). ? Pain when going pee (urinating). ? Blood in your pee (hematuria). ? Feeling like you may vomit (nauseous). ? Vomiting. ? Fever and chills. How is this treated? Treatment depends on the size, location, and makeup of the kidney stones. The stones will often pass out of the body through peeing. You may need to: ? Drink more fluid to help pass the stone. In some cases, you may be given fluids through an IV tube put into one of your veins at the hospital. ? Take medicine for pain. ? Make changes in your diet to help keep kidney stones from coming back. Sometimes, medical procedures are needed to remove a kidney stone. This may involve: ? A procedure to break up kidney stones using a beam of light (laser) or shock waves. ? Surgery to remove the kidney stones. Follow these instructions at home: Medicines ? Take uyze-ork-olmzhom and prescription medicines only as told by your doctor. ? Ask your doctor if the medicine prescribed to you requires you to avoid driving or using heavy machinery. Eating and drinking ? Drink enough fluid to keep your pee pale yellow. You may be told to drink at least 8?10 glasses of water each day. This will help you pass the stone. ? If told by your doctor, change your diet. This may include: ? Limiting how much salt you eat. ? Eating more fruits and vegetables. ? Limiting how much meat, poultry, fish, and eggs you eat. ? Follow instructions from your doctor about eating or drinking restrictions. General instructions ? Collect pee samples as told by your doctor. You may need to collect a pee sample: ? 24 hours after a stone comes out. ? 8?12 weeks after a stone comes out, and every 6?12 months after that. ? Strain your pee every time you pee (urinate), for as long as told. Use the strainer that your doctor recommends. ? Do not throw out the stone. Keep it so that it can be tested by your doctor. ? Keep all follow-up visits as told by your doctor. This is important. You may need follow-up tests. How is this prevented? To prevent another kidney stone: ? Drink enough fluid to keep your pee pale yellow. This is the best way to prevent kidney stones. ? Eat healthy foods. ? Avoid certain foods as told by your doctor. You may be told to eat less protein. ? Stay at a healthy weight. Where to find more information ? National Kidney Foundation (NKF): www.kidney.org ? [employer] (UCF): www.urologyhealth.org Contact a doctor if: ? You have pain that gets worse or does not get better with medicine. Get help right away if: ? You have a fever or chills. ? You get very bad pain. ? You get new pain in your belly (abdomen). ? You pass out (faint). ? You cannot pee. Summary ? Kidney stones are rock-like masses that form inside of the kidneys. ? Kidney stones can cause very bad pain and can block the flow of pee. ? The stones will often pass out of the body through peeing. ? Drink enough fluid to keep your pee pale yellow. This information is not intended to replace advice given to you by your health care provider. Make sure you discuss any questions you have with your health care provider. Document Released: 12/30/2008 Document Revised: 11/30/2019 Document Reviewed: 11/30/2019 [employer] Patient Education ? 2019 [employer] [facility] Pre-Certification Formon Pre-Certification Form [id number] CD:127 [facility] Urology Office/Clinic Noteon 10-11-2022 Urology Office/Clinic Note Chief Complaint new patient HPI Staff Pt is a new pt, never before seen in our office. (Verified on [employer]) Here today due to Kidney Stones. Pt went to [facility] ER on 09/30/22 due to Rt Flank Pain. CT a/p done 09/30/22 Pt then went to [place] ER 10/03/22 due to Rt side pain. CT a/p done 10/03/22. Pt was given Percocet. Cipro, Zofran, Toradol & Flomax scripts. Dysuria: no Incomplete bladder emptying: no Hematuria:denies any visible blood, states she has always had micro hematuria. Is also on her menstrual cycle. Frequency: yes Urgency: no Nocturia: 3x a night Stream: good stream Leaking: no Post void dripping: no Wearing pads/ Depends: no Urge incontinence: no Stress incontinence: no Incontinence without Sensor y Awareness: no Abdominal pain: low abdominal pain Flank pain: rt side, states it has been severe at times Sexual complaints: no History of Present Illness Tests reviewed: Reviewed UA, CT and ER records. I have reviewed the previous health record information and history for this patient from Dr. Gregory. I have reviewed and verified the staff HPI to be accurate for this encounter. There have been no associated fever, chills, flank pain, or blood in the urine. Denies any urinary infections since last encounter. Review of Systems PHQ Score Initial Depression Screen Score: 0 ROS - Provider Constitutional: denies weight loss, denies hot flashes. Eyes: denies eye problems. Gastrointestinal: denies nausea, denies vomiting. Cardiovascular: denies chest pain or angina. Integumentary: no dryness Musculoskeletal: denies musculoskeletal symptoms. ENMT: denies otolaryngeal symptoms. Respiratory: no shortness of breath. Heme/Lymph: denies easy bleeding tendency, denies easy bruising tendency. Psychiatric: no confusion, no anxiety. Genitourinary: denies vaginal discharge, denies incontinence, denies dysuria, denies hematuria, denies urinary frequency, denies amenorrhea, denies menorrhagia, denies abnormal bleeding, denies pelvic pain, denies genital sores, and denies decreased libido. Physical Exam Vitals & Measurements HR: 101(Peripheral) BP: 151/81 HT: 64 in HT: 162 cm WT: 80 kg WT: 176 lb BMI: 30.48 General Appearance: alert , no acute distress, well nourished, well developed female. Head: normocephalic . Eyes: normal orbit and globe. ENMT: normal examination of external ears. Chest: Lungs CTA, respirations non labored . Cardiovascular: regular rate and rhythm. Abdomen: soft, non distended, no tenderness, no mass or organomegaly, no hernia. Genitourinary: bladder nonpalpable, no flank tenderness. Lymph Nodes: unremarkable palpation of the cervical area. Skin: warm, dry, no bruising. Psychiatric: cooperative, affect appropriate for age, normal judgement, euthymic mood. Assessment/Plan 1. Ureteral stone (N20.1: Calculus of ureter) New patient due to kidney stones. Presented to [facility] ER 09/30/21 with sudden onset right flank pain. CT AP 09/30/21 right proximal ureterolithiasis 5 x 2 mm with hydronephrosis. Patient was to be admitted, but patient signed herself out due to needing to get home to her children. Per note, patient was unable to wait for urology any longer. Patient then presented to [facility] ER 10/03/22 for evaluation of right-sided abdominal pain. CT AP wo contrast 10/03/22 shows 3 mm stone of the distal right ureter with mild right-sided hydroureteronephrosis. Discharged home with Percocet, Cipro, Zofran. 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 Completes abx course tomorrow. Still experiencing pain. UA today shows LARGE blood, is also on menstrual cycle. Has been straining her urine. Does have a history of stones, 5 years ago. Patient believes she passed the stone on her own without visualizing it. Discussed options with patient including giving her more time to pass stone on her own or surgical intervention. Will schedule Cysto, R ureteroscopy, Laser Litho depending on stone size, and possible R stent placement. The procedural risks, benefits, details, and treatment alternatives have been discussed with the patient. These include bleeding, infection, inability to break or retrieve all of the stone, injury to the ureter (the tube which connects the kidney to the bladder), injury to the kidney scarring of the ureter, and need for repeat procedures, among others. Full informed consent has been obtained. Will order General anesthesia. Orders: Urnls Dip Stick Auto w/o Microscopy POC [id number] Urology Procedure Order Follow-up With When Contact Information BRI GORE, Evan Gutierrez, URL [address] [place] [address]- Additional Instructions: Schedule laser lithotripsy Patient Education Kidney Stones, [id number] Marsha Escamilla, personally scribed for Dr. Gregory on 10/11/2022 11:30:55. . Documentation recorded by the Marsha evans (more content not included)... Normal [facility] Comment on above: Result Comment: Elec tronically Signed By: Evan GREGORY MD\.br\Date and Time Signed: 10/11/22 11:38 EDT\.br\Electronically Co-Signed By: Marsha Shaw\.br\Date and Time Co-Signed: 10/11/22 11:31 EDT CBC AUTO DIFFon 10-10-2022 BASO # 0.1 103/ul Normal 0.0-0.1 [facility] Comment on above: Performed By: #### C BC #### [facility] [address] [place] [address] Dr. Ricarda Chiang Basophils/100 WBC (Bld) 0.7 % Normal 0.2-2.0 [facility] Comment on above: Performed By: #### C BC #### [facility] [address] [place] [address] Dr. Ricarda Chiang EO # 0.1 103/ul Normal 0.0-0.7 [facility] Comment on above: Performed By: #### C BC #### [facility] [address] [place] [address] Dr. Ricarda Chiang Eosinophils/100 WBC (Bld) 1.7 % Normal 0.9-7.0 [facility] Comment on above: Performed By: #### C BC #### [facility] [address] [place] [address] Dr. Ricarda Chiang Erythrocyte distribution width (RBC) [Ratio] 12.9 % Normal 11.0-15.0 [facility] Comment on above: Performed By: #### C BC #### [facility] [address] [place] [address] Dr. Ricarda Chiang Hematocrit (Bld) [Volume fraction] 37.0 % Normal 36.0-48.0 [facility] Comment on above: Performed By: #### C BC #### [facility] [address] [place] [address] Dr. Ricarda Chiang Hemoglobin (Bld) [Mass/Vol] 12.2 g/dL Normal 12.0-16.0 [facility] Comment on above: Performed By: #### C BC #### [facility] [address] [place] [address] Dr. Ricarda Chiang IG # 0.03 10e3/ul Normal 0.00-0.03 [facility] Comment on above: Performed By: #### C BC #### [facility] [address] [place] [address] Dr. Ricarda Chiang IG % 0.4 % Normal 0.0-0.5 [facility] Comment on above: Performed By: #### C BC #### [facility] [address] [place] [address] Dr. Ricarda Chiang LYMPH # 1.9 103/ul Normal 1.2-3.8 [facility] Comment on above: Performed By: #### C BC #### [facility] [address] [place] [address] Dr. Ricarda Chiang Lymphocytes/100 WBC (Bld) 25.2 % Normal 20.5-60.0 [facility] Comment on above: Performed By: #### C BC #### [facility] [address] [place] [address] Dr. Ricarda Chiang MANUAL DIFF REQ NO Normal [facility] Comment on above: Performed By: #### C BC #### [facility] [address] [place] [address] Dr. Ricarda Chiang MCH (RBC) [Entitic mass] 28.4 pg Normal 26.7-34.0 [facility] Comment on above: Performed By: #### C BC #### [facility] [address] [address] [address] Ricarda Chiang MCHC (RBC) [Mass/Vol] 33.0 g/dL Normal 29.9-35.2 [facility] Comment on above: Performed By: #### C BC #### [facility] [address] [address] [address] Ricarda Chiang MCV (RBC) [Entitic vol] 86.2 fL Normal 81.0-99.0 [facility] Comment on above: Performed By: #### C BC #### [facility] [address] [place] [address] Dr. Ricarda Chiang MONO # 0.6 103/ul Normal 0.3-0.8 [facility] Comment on above: Performed By: #### C BC #### [facility] [address] [place] [address] Dr. Ricarda Chiang Monocytes/100 WBC (Bld) 7.9 % Normal 1.7-12.0 [facility] Comment on above: Performed By: #### C BC #### [facility] [address] [place] [address] Dr. Ricarda Chiang NEUT # 4.8 103/ul Normal 1.4-6.5 [facility] Comment on above: Performed By: #### C BC #### [facility] [address] [place] [address] Dr. Ricarda Chiang Neutrophils/100 WBC (Bld) 64.1 % Normal 43.0-75.0 [facility] Comment on above: Performed By: #### C BC #### [facility] [address] [place] [address] Dr. Ricarda Chiang Platelet mean volume (Bld) [Entitic vol] 10.3 fL Normal 9.5-13.5 [facility] Comment on above: Performed By: #### C BC #### [facility] [address] [place] [address] Dr. Ricarda Chiang PLT 380 103/ul Normal 150-450 [facility] Comment on above: Performed By: #### C BC #### [facility] [address] [place] [address] Dr. Ricarda Chiang RBC 4.29 106/ul Normal 4.20-5.40 [facility] Comment on above: Performed By: #### C BC #### [facility] [address] [place] [address] Dr. Ricarda Chiang WBC 7.5 103/ul Normal 4.0-11.0 [facility] Comment on above: Performed By: #### C BC #### [facility] [address] [place] [address] Dr. Ricarda Chiang ED Note-Physicianon 10-11-19 23 ED Note-Physician [id number] :127 Normal [facility] FREE T4on 10-10-2022 Free T4 [Mass/Vol] 0.96 ng/dL Normal 0.76-1.46 [facility] Comment on above: Performed By: #### F T4 #### [facility] [address] [place] [address] Dr. Ricarda Chiang GLYCOHEMOGLOBIN A1Con 2022 ADA RECOMMENDATION SEE BELOW Normal [facility] Comment on above: Result Comment: ADA RECOMMENDED LIMIT 4.0 - 6.0 ADA THERAPEUTIC TARGET < 7.0 ACTION SUGGESTED > 7.0 Performed By: #### F T4 #### [facility] [address] [place] [address] Dr. Ricarda Chiang Glucose [Mass/Vol] 111 mg/dL Normal [facility] Comment on above: Performed By: #### F T4 #### [facility] [address] [place] [address] Dr. Ricarda Chiang HbA1c (Bld) [Mass fraction] 5.5 % Normal 4.5-6.2 [facility] Comment on above: Performed By: #### F T4 #### [facility] [address] [place] [address] Dr. Ricarda Chiang PREG QUANT HCGon 10-10-2022 HCG QUANT <1 Normal [facility] Comment on above: Performed By: #### T SH, PREGQNT #### [facility] [address] [place] [address] Dr. Ricarda Chiang HCG RANGE SEE BELOW Normal [facility] Comment on above: Result Comment: 5-50 0.2-1 WEEK 50-500 1-2 WEEKS 100-5,000 2-3 WEEKS 500-10,000 3-4 WEEKS 1,000-50,000 4-5 WEEKS 10,000-100,000 5-6 WEEKS 15,000-200,000 6-8 WEEKS 10,000-100,000 2-3 MONTHS Performed By: #### T SH, PREGQNT #### [facility] [address] [place] [address] Dr. Ricarda Chiang PROTIMEon 10-10-2022 INR Coag (PPP) [Relative time] {INR} Normal [facility] Comment on above: Performed By: #### P T, PTT #### [facility] [address] [place] [address] Dr. Ricarda Chiang INR GUIDELINES SEE BELOW Normal [facility] Comment on above: Result Comment: MIRTA RED INR: 2.0 - 3.0 CONDITIONS NOT LISTED BELOW 2.5 - 3.5 FOR PROSTHETIC HEART VALVE REPLACEMENT 2.5 - 3.5 RECURRENT THROMBOSIS Performed By: #### P T, PTT #### [facility] [address] [place] [address] Dr. Ricarda Chiang PT Coag (PPP) [Time] 9.8 s Normal 9.0-11.6 [facility] Comment on above: Performed By: #### P T, PTT #### [facility] [address] [place] [address] Dr. Ricarda Chiang PTTon 10-10-2022 aPTT Coag (Bld) [Time] 28.0 s Normal 22.3-36.2 [facility] Comment on above: Performed By: #### P T, PTT #### [facility] [address] [place] [address] Dr. Ricarda Chiang TSHon 10-10-2022 TSH 1.791 uIU/mL Normal 0.358-3.740 [facility] Comment on above: Performed By: #### T SH, PREGQNT #### [facility] [address] [place] [address] Dr. Ricarda Chiang CBC AUTO DIFFon 10-03-2022 BASO # 0.1 103/ul Normal 0.0-0.1 [facility] Comment on above: Performed By: #### F T4 #### [facility] [address] [place] [address] Dr. Ricarda Chiang Basophils/100 WBC (Bld) 0.6 % Normal 0.2-2.0 [facility] Comment on above: Performed By: #### F T4 #### [facility] [address] [place] [address] Dr. Ricarda Chiang EO # 0.1 103/ul Normal 0.0-0.7 [facility] Comment on above: Performed By: #### F T4 #### [facility] [address] [place] [address] Dr. Ricarda Chiang Eosinophils/100 WBC (Bld) 1.4 % Normal 0.9-7.0 [facility] Comment on above: Performed By: #### F T4 #### [facility] [address] [place] [address] Dr. Ricarda Chiang Erythrocyte distribution width (RBC) [Ratio] 13.2 % Normal 11.0-15.0 [facility] Comment on above: Performed By: #### F T4 #### [facility] [address] [place] [address] Dr. Ricarda Chiang Hematocrit (Bld) [Volume fraction] 33.0 % Critically low 36.0-48.0 [facility] Comment on above: Performed By: #### F T4 #### [facility] [address] [place] [address] Dr. Ricarda Chiang Hemoglobin (Bld) [Mass/Vol] 11.2 g/dL Critically low 12.0-16.0 [facility] Comment on above: Performed By: #### F T4 #### [facility] [address] [place] [address] Dr. Ricarda Chiang IG # 0.04 10e3/ul Critically high 0.00-0.03 [facility] Comment on above: Performed By: #### F T4 #### [facility] [address] [place] [address] Dr. Ricarda Chiang IG % 0.4 % Normal 0.0-0.5 [facility] Comment on above: Performed By: #### F T4 #### [facility] [address] [place] [address] Dr. Ricarda Chiang LYMPH # 2.3 103/ul Normal 1.2-3.8 [facility] Comment on above: Performed By: #### F T4 #### [facility] [address] [place] [address] Dr. Ricarda Chiang Lymphocytes/100 WBC (Bld) 24.4 % Normal 20.5-60.0 [facility] Comment on above: Performed By: #### F T4 #### [facility] [address] [place] [address] Dr. Ricarda Chiang MANUAL DIFF REQ NO Normal [facility] Comment on above: Performed By: #### F T4 #### [facility] [address] [place] [address] Dr. Ricarda Chiang MCH (RBC) [Entitic mass] 28.3 pg Normal 26.7-34.0 [facility] Comment on above: Performed By: #### F T4 #### [facility] [address] [place] [address] Dr. Ricarda Chiang MCHC (RBC) [Mass/Vol] 33.9 g/dL Normal 29.9-35.2 [facility] Comment on above: Performed By: #### F T4 #### [facility] [address] [place] [address] Dr. Ricarda Chiang MCV (RBC) [Entitic vol] 83.3 fL Normal 81.0-99.0 [facility] Comment on above: Performed By: #### F T4 #### [facility] [address] [place] [address] Dr. Ricarda Chiang MONO # 0.8 103/ul Normal 0.3-0.8 [facility] Comment on above: Performed By: #### F T4 #### [facility] [address] [place] [address] Dr. Ricarda Chiang Monocytes/100 WBC (Bld) 8.7 % Normal 1.7-12.0 [facility] Comment on above: Performed By: #### F T4 #### [facility] [address] [place] [address] Dr. Ricarda Chaing NEUT # 6.0 103/ul Normal 1.4-6.5 [facility] Comment on above: Performed By: #### F T4 #### [facility] [address] [place] [address] Dr. Ricarda Chiang Neutrophils/100 WBC (Bld) 64.5 % Normal 43.0-75.0 [facility] Comment on above: Performed By: #### F T4 #### [facility] [address] [place] [address] Dr. Ricarda Chiagn Platelet mean volume (Bld) [Entitic vol] 10.4 fL Normal 9.5-13.5 [facility] Comment on above: Performed By: #### F T4 #### [facility] [address] [place] [address] Dr. Ricarda Chiang PLT 319 103/ul Normal 150-450 [facility] Comment on above: Performed By: #### F T4 #### [facility] [address] [place], [place] [id number] Dr. Ricarda Chiang RBC 3.96 106/ul Critically low 4.20-5.40 [facility] Comment on above: Performed By: #### F T4 #### [facility] [address] [place] [address] ABD/PELVIS WO CONon 10-03 CT ABD/PELVIS WO CON EXAM: CT ABD/PELVIS WO CON TECHNIQUE: Axial CT images were obtained of the abdomen and pelvis without intravenous contrast. Sagittal and coronal reformatted images were also obtained. Dose reduction techniques were achieved by using automated exposure control and/or adjustment of mA and/or kV according to patient size and/or use of iterative reconstruction technique. HISTORY: CALCULUS OF KIDNEY COMPARISON: None. FINDINGS: Lower chest: The lower lungs are clear. Liver: The liver is homogeneous with normal contours and normal size. Gallbladder: The gallbladder is unremarkable. There is no intra or extrahepatic biliary dilatation. Pancreas: The pancreas is homogeneous without evidence for mass lesion or inflammation. Spleen: The spleen is unremarkable without evidence for mass lesion. Adrenal glands: The adrenal glands are unremarkable Kidneys and bladder: The kidneys are unremarkable with no evidence for mass lesion, hydronephrosis or inflammation. 3 mm stone of the distal right ureter with mild right-sided hydroureteronephrosis. The left ureter is normal caliber without obstructing stone. The urinary bladder is unremarkable. GI Tract: Stomach is unremarkable. Visualized small bowel is unremarkable without evidence for obstruction or active inflammation. The appendix is unremarkable.The visualized portion of the large bowel is unremarkable. Reproductive: Unremarkable Lymph nodes: No retroperitoneal or abdominal lymphadenopathy. Vascular: The aorta is not dilated. Peritoneum: No free intraperitoneal air or fluid. No acute inflammation. Abdominal wall: Small fat-containing umbilical hernia. __ IMPRESSION: 3 mm stone of the right distal ureter with mild right-sided hydroureteronephrosis. Electronically authenticated by: PATRICIA CARSON Date: 2022-10-03 17:58 Normal [facility] ER URINE PROFILEon 3 Bilirubin Ql (U) Negative Normal NEGATIVE [facility] Comment on above: Performed By: #### TITO GUTIERREZ #### [facility] [address] [place] [address] Dr. Ricarda Chiang Clarity (U) CLEAR Normal CLEAR [facility] Comment on above: Performed By: #### TITO GUTIERREZ #### [facility] [address] [place] [address] Dr. Ricarda Chiang Color (U) YELLOW Normal YELLOW [facility] Comment on above: Performed By: #### TITO GUTIERREZ #### [facility] [address] [place] [address] Dr. Ricarda Chiang ERUAHD A micrscopic examination will be performed if indicated. Normal [facility] Comment on above: Performed By: #### Nick MIN UMICRO #### [facility] [address] [address] [address] Ricarda Chiang Glucose Ql (U) Negative Normal NEGATIVE [facility] Comment on above: Performed By: #### Nick MIN UMICRO #### [facility] [address] [address] [address] Ricarda Chiang Hemoglobin Ql (U) LARGE Abnormal NEGATIVE [facility] Comment on above: Performed By: #### Nick MIN UMICRO #### [facility] [address] [place] [address] Dr. Ricarda Chiang Ketones Ql (U) Negative Normal NEGATIVE [facility] Comment on above: Performed By: #### Nick MIN UMICRO #### [facility] [address] [place] [address] Dr. Ricarda Chiang LEUKOCYTES Negative Normal NEGATIVE [facility] Comment on above: Performed By: #### Nick MIN UMICRO #### [facility] [address] [place] [address] Dr. Ricarda Chiang Nitrite Ql (U) Negative Normal NEGATIVE [facility] Comment on above: Performed By: #### Nick MIN UMICRO #### [facility] [address] [place] [address] Dr. Ricarda Chiang pH (U) 6.0 [pH] Normal 5-9 [facility] Comment on above: Performed By: #### Nick MIN UMICRO #### [facility] [address] [place] [address] Dr. Ricarda Chiang SPEC GRAVITY 1.025 Normal 1.005-<=1.025 [facility] Comment on above: Performed By: #### Nick MIN UMICRO #### [facility] [address] [place] [address] Dr. Ricarda Chiang UA PROTEIN TRACE Normal NEGATIVE/ TRACE [facility] Comment on above: Performed By: #### Nick IMN UMICRO #### [facility] [address] [place] [address] Dr. Ricarda Chiang UR MICRO IND INDICATED Normal [facility] Comment on above: Performed By: #### TITO GUTIERREZ #### [facility] [address] [place] [address] Dr. Ricarda Chiang Urobilinogen Qn (U) 0.2 {Talita'U}/dL Normal 0.2 - 1. 0 [facility] Comment on above: Performed By: #### TITO GUTIERREZ #### [facility] [address] [place] [address] Dr. Ricarda Chiang PROF 14(COMP METB)on 023 Albumin [Mass/Vol] 3.8 g/dL Normal 3.4-5.0 [facility] Comment on above: Performed By: #### F T4 #### [facility] [address] [place] [address] Dr. Ricarda Chiang Albumin/Globulin [Mass ratio] 1.3 {ratio} Normal [facility] Comment on above: Performed By: #### F T4 #### [facility] [address] [place] [address] Dr. Ricarda Chiang ALP [Catalytic activity/Vol] 85 U/L Normal 46-116 [facility] Comment on above: Performed By: #### F T4 #### [facility] [address] [place] [address] Dr. Ricarda Chiang ALT [Catalytic activity/Vol] 14 U/L Normal 14-59 [facility] Comment on above: Performed By: #### F T4 #### [facility] [address] [place] [address] Dr. Ricarda Chiang Anion gap [Moles/Vol] 10.9 mmol/L Normal [facility] Comment on above: Performed By: #### F T4 #### [facility] [address] [place] [address] Dr. Ricarda Chiang AST [Catalytic activity/Vol] 12 U/L Critically low 15-37 [facility] Comment on above: Performed By: #### F T4 #### [facility] [address] [place] [address] Dr. Ricarda Chiang Bilirubin [Mass/Vol] 0.2 mg/dL Normal 0.2-1.0 [facility] Comment on above: Performed By: #### F T4 #### [facility] [address] [place] [address] Dr. Ricarda Chiang Calcium [Mass/Vol] 8.8 mg/dL Normal 8.5-10.1 [facility] Comment on above: Performed By: #### F T4 #### [facility] [address] [address] [address] Ricarda Chiang Chloride [Moles/Vol] 106 mmol/L Normal 98-107 [facility] Comment on above: Performed By: #### F T4 #### [facility] [address] [place] [address] Dr. Ricarda Chiang CO2 [Moles/Vol] 23.1 mmol/L Normal 21.0-32.0 [facility] Comment on above: Performed By: #### F T4 #### [facility] [address] [place] [address] Dr. Ricarda Chiang Creatinine [Mass/Vol] 0.64 mg/dL Normal 0.55-1.02 [facility] Comment on above: Performed By: #### F T4 #### [facility] [address] [place] [address] Dr. Ricarda Chiang EGFR-AF TURKMEN >60 Normal >=60 [facility] Comment on above: Performed By: #### F T4 #### [facility] [address] [place] [address] Dr. Ricarda Chiang EGFR-NON AF TURKMEN >60 Normal >=60 [facility] Comment on above: Performed By: #### F T4 #### [facility] [address] [place] [address] Dr. Ricarda Chiang Globulin (S) [Mass/Vol] 3.0 g/dL Normal [facility] Comment on above: Performed By: #### F T4 #### [facility] [address] [place] [address] Dr. Ricarda Chiang Glucose [Mass/Vol] 132 mg/dL Critically high 74-106 T [facility] Comment on above: Performed By: #### F T4 #### [facility] [address] [address] [address] Ricarda Chiang Potassium [Moles/Vol] 3.0 mmol/L Critically low 3.5-5.1 [facility] Comment on above: Performed By: #### F T4 #### [facility] [address] [address] [address] Ricarda Chiang Protein [Mass/Vol] 6.8 g/dL Normal 6.4-8.2 [facility] Comment on above: Performed By: #### F T4 #### [facility] [address] [place] [address] Dr. Ricarda Chiang Sodium [Moles/Vol] 137 mmol/L Normal 136-145 [facility] Comment on above: Performed By: #### F T4 #### [facility] [address] [place] [address] Dr. Ricarda Chiang Urea nitrogen [Mass/Vol] 13.0 mg/dL Normal 7.0-18.0 [facility] Comment on above: Performed By: #### F T4 #### [facility] [address] [place] [address] Dr. Ricarda Chiang Urea nitrogen/Creatinine [Mass ratio] 20.3 mg/mg Normal [facility] Comment on above: Performed By: #### F T4 #### [facility] [address] [place] [address] Dr. Ricarda Chiang URINE MICROSCOPIC ONLYon BACTERIA TRACE Abnormal NONE SEEN [facility] Comment on above: Performed By: #### E ORALIA MINRO #### [facility] [address] [place] [address] Dr. Ricarda Chiang Bacteria identified Cx Nom (U) NOT INDICATED Normal [facility] Comment on above: Performed By: #### Nick MIN UMICRO #### [facility] [address] [place] [address] Dr. Ricarda Chiang CA OX CRYSTALS RARE Normal [facility] Comment on above: Performed By: #### E RUR, UMICRO #### [facility] [address] [place] [address] Dr. Ricarda Chiang CAST SEEN Abnormal NONE SEEN The [facility] Comment on above: Performed By: #### E PAKO UMICRO #### [facility] [address] [place] [address] Dr. Ricarda Chiang Crystals LM Nom (Urine sed) SEEN Abnormal NONE SEEN The [facility] Comment on above: Performed By: #### Nick MIN UMICRO #### [facility] [address] [place] [address] Dr. Ricarda Chiang Epithelial cells LM Ql (Urine sed) RARE Normal NONE SEEN /RARE The [facility] Comment on above: Performed By: #### Nick MIN UMICRO #### [facility] [address] [place] [address] Dr. Ricarda Chiang MUCOUS NONE SEEN Normal NONE SEEN The [facility] Comment on above: Performed By: #### Nick MIN UMICRO #### [facility] [address] [place] [address] Dr. Ricarda Chiang RBC 20-50 Abnormal 0-2 [facility] Comment on above: Performed By: #### Nick MIN UMICRO #### [facility] [address] [place] [address] Dr. Ricarda Chiang WBC 2-5 Abnormal NONE SEEN The [facility] Comment on above: Performed By: #### iNck MIN UMICRO #### [facility] [address] [place] [address] Dr. Ricarda Chiang US PELVIS AND TRANSVAGon US PELVIS AND TRANSVAG EXAMINATION: US PELVIS AND TRANSVAG HISTORY: Excessive and frequent menstruation COMPARISON: No relevant comparison available. TECHNIQUE: Transabdominal and transvaginal sonographic examination. FINDINGS: UTERUS: Normal size and appearance. Uterus size: 8.3 x 4.0 x 5.9 cm ENDOMETRIUM: Normal homogeneous appearance. Endometrial thickness: 13 mm RIGHT OVARY: Contains a 2.3 x 1.9 x 1.7 cm follicle with slightly irregular margin. Duplex Doppler demonstrates normal waveform and flow; resistive index 0.5. Ovary size: 2.8 x 2.1 x 2.3 cm LEFT OVARY: Normal size and appearance. Duplex Doppler demonstrates normal waveform and flow; resistive index 0.5. Ovary size: 2.5 x 1.2 x 2.6 cm CUL-DE-SAC: Unremarkable. No significant free fluid. BLADDER: Unremarkable. OTHER: Slightly prominent adnexal vessels bilaterally; nonspecific. IMPRESSION: 1. Endometrium is near upper limits of normal in thickness, 13 mm. Correlate with patient's stage in her menstrual cycle. 2. Right ovary contains a 2.3 cm slightly complex cysts. Follow-up ultrasound in 6 weeks is recommended to document regression . Electronically authenticated by: KENNA BAJWA Date: 2022-10-01 16:42 Normal [facility] PAP ACOG PANEL 2: 30 to 65on 08-31-2022 . . Normal [facility] Comment on above: Result Comment: Perf ormed at: WB Performed By: #### F T4 #### [facility] [address] [address] [address] Ricarda Chiang Age Gdln ACOG Testing 30-65 Normal [facility] Comment on above: Performed By: #### F T4 #### [facility] [address] [address] [address] Ricarda Chinag DIAGNOSIS: Comment Normal [facility] Comment on above: Result Comment: NEGA TIVE FOR INTRAEPITHELIAL LESION OR MALIGNANCY. Performed at: WB Performed By: #### F T4 #### [facility] [address] [address] [address] Ricarda Chiang HPV Aptima Negative Normal Negative [facility] Comment on above: Result Comment: This nucleic acid amplification test detects fourteen high-risk HPV types (16,18,31,33,35,39,45,51,52,56,58,59,66,68) without differentiation. Performed at: =G Performed By: #### F T4 #### [facility] [id number] Ricarda Chiang HPV Genotype Reflex Comment Normal [facility] Comment on above: Result Comment: Crit eria not met, HPV Genotype not performed. Performed at: WB Performed By: #### F T4 #### [facility] [address] [place] [address] Dr. Ricarda Chiang Methodology: Comment Normal [facility] Comment on above: Result Comment: This liquid based ThinPrep(R) pap test was screened with the use of an image guided system. Performed at: WB Performed By: #### F T4 #### [facility] [address] [address] [address] Ricarda Chiang Note: Comment Normal [facility] Comment on above: Result Comment: The Pap smear is a screening test designed to aid in the detection of premalignant and malignant conditions of the uterine cervix. It is not a diagnostic procedure and should not be used as the sole means of detecting cervical cancer. Both false-positive and false-negative reports do occur. . Performed at: WB Performed By: #### F T4 #### [facility] [address] [place], [place] [id number] Dr. Ricarda Chiang Performed by: Comment Normal [facility] Comment on above: Result Comment: Barrett Timmons, Paint Mixer (ASCP) Performed at: WB Performed By: #### F T4 #### [facility] [address] [place] [address] [address] [address] Ricarda Chiang Specimen adequacy: Comment Normal [facility] Comment on above: Result Comment: Sati sfactory for evaluation. Endocervical and/or squamous metaplastic cells (endocervical component) are present. Performed at: WB Performed By: #### F T4 #### [facility] [address] [place], [place] [id number] Dr. Ricarda Chiang XR Foot Complete Left*on XR Foot Complete Left* FINDINGS: Bone mineralization is normal for this age. No acute fracture, dislocation or significant arthritic changes are seen. No significant joint space effusion is present. Soft tissues are without abnormal calcifications or radiopaque foreign body. No active erosive changes are identified. IMPRESSION: No fracture or significant focal soft tissue swelling Report reported and signed by Charlie Tatum on 03/29/2022 1332 Normal [facility] US Venous, Unilat, Lower Ext Lefton 09-28-2021 US Venous, Unilat, Lower Ext Left FINDINGS: The deep venous system of the left lower extremity exhibits full compressibility and normal flow augmentation. These specifically include the common femoral, superficial femoral, popliteal and visualization anterior tibialis, posterior tibialis and peroneal veins. No evidence of deep venous thrombosis is present. Greater saphenous vein is patent. No cystic or soft tissue mass in the popliteal fossa. IMPRESSION: No evidence of deep or superficial venous thrombosis. Report reported and signed by Charlie Tatum on 09/28/2021 1618 Normal [facility] Special[facility] Vital Signs Date Time Vital Sign Value Performing Clinician Faci mushtaq 03-23-2025 08:41-0400 Body mass index (BMI) [Ratio] 28.87 kg/m2 Kimberlee TRAVIS Work Phone: [facility] 03-23-2025 08:41-0400 Body weight 73.94 kg Kimberlee TRAVIS Work Phone: [facility] 03-23-2025 08:41-0400 Diastolic blood pressure 76 mm[Hg] Kimberlee TRAVIS Work Phone: [facility] 03-23-2025 08:41-0400 Systolic blood pressure 136 mm[Hg] Kimberlee TRAVIS Work Phone: [facility] 12-10-2024 09:41-0400 Body height 162.56 cm Milad Ford MD Work Phone: [facility] 12-10-2024 09:41-0400 Body mass index (BMI) [Ratio] 28.5 kg/m2 Milad Ford MD Work Phone: [facility] 12-10-2024 09:41-0400 Body weight 75.29 kg Milad Ford MD Work Phone: [facility] 12-08-2024 14:43-0400 Body mass index (BMI) [Ratio] 30.11 kg/m2 Stiven Enriquez NP Work Phone: [facility] 12-08-2024 14:43-0400 Body weight 77.11 kg Stiven Enriquez NP Work Phone: [facility] 12-08-2024 14:43-0400 Diastolic blood pressure 76 mm[Hg] Stiven Enriquez CATH LAB RADIOLOGY TECHNICIAN Work Phone: [facility] 12-08-2024 14:43-0400 Systolic blood pressure 122 mm[Hg] Stiven Mina CATH LAB RADIOLOGY TECHNICIAN Work Phone: [facility] 09-14-2024 13:20-0500 Body mass index (BMI) [Ratio] 30.36 kg/m2 Kimberlee Jane PA Work Phone: [facility] 09-14-2024 13:20-0500 Body weight 77.75 kg Kimberlee Lucinda PA Work Phone: [facility] 09-14-2024 13:20-0500 Diastolic blood pressure 80 mm[Hg] Kimberlee Jane PA Work Phone: [facility] 09-14-2024 13:20-0500 Systolic blood pressure 138 mm[Hg] Kimberlee Jane PA Work Phone: [facility] 03-18-2024 09:18-0400 Body height 160 cm Praveen Jodie DO Work Phone: [facility] 03-18-2024 09:18-0400 Body mass index (BMI) [Ratio] 30.82 kg/m2 Praveen Jodie DO Work Phone: [facility] 03-18-2024 09:18-0400 Body weight 78.93 kg Praveen Jodie DO Work Phone: [facility] 03-18-2024 09:18-0400 Diastolic blood pressure 72 mm[Hg] Praveen Jodie DO Work Phone: [facility] 03-18-2024 09:18-0400 Systolic blood pressure 116 mm[Hg] Praveen Jodie DO Work Phone: [facility] 10-11-2022 10:43-0400 Blood Pressure Location Evan GREGORY [facility] 10-11-2022 10:43-0400 Diastolic blood pressure 81 mm[Hg] Evan GREGORY [facility] 10-11-2022 10:43-0400 Heart rate 101 /min Evan GREGORY [facility] 10-11-2022 10:43-0400 Systolic blood pressure 151 mm[Hg] Evan [facility]REG[facility] Encounters Encounter Date Encounter Type Care Provider Facility Start: 03-23-2025 End: 03-23-2025 Bamboo flowsheet Kimberlee TRAVIS Work Phone: [facility] Start: 03-23-2025 End: 03-23-2025 Bamboo flowsheet Kimberlee TRAVIS Work Phone: [facility] Start: 03-23-2025 End: 03-23-2025 Patient encounter procedure Kimberlee TRAVIS Work Phone: [facility] Work Phone: Start: 03-23-2025 End: 03-23-2025 Periodic preventive med est patient 40-64yrs Kimberlee TRAVIS Work Phone: [facility] Comment on above: Well woman exam with routine gynecological exam; Breast cancer screening by mammogram Start: 03-11-2025 End: 03-11-2025 Telephone encounter Ben TRAVIS Work Phone: [facility] Comment on above: Med Refill (Ibuprofe n 800mg ) Start: 12-16-2024 End: 12-16-2024 ambulatory Milad Ford MD Work Phone: [facility] Work Phone: Start: 12-16-2024 End: 12-16-2024 Patient encounter procedure Milad Ford MD Work Phone: [facility] Work Phone: Start: 12-10-2024 End: 12-10-2024 Patient encounter procedure Milad Ford MD Work Phone: [facility] Work Phone: Start: 12-10-2024 End: 12-10-2024 ambulatory Milad Ford II Facility:[facility] Start: 12-08-2024 End: 12-08-2024 Office outpatient visit 15 minutes Stiven Enriquez CATH LAB RADIOLOGY TECHNICIAN Work Phone: [facility] Comment on above: Encounter for weight management Start: 12-08-2024 End: 12-08-2024 ambulatory STIVEN ENRIQUEZ Not Available Start: 11-30-2024 End: 11-30-2024 Bamnatalia Salazar DO Work Phone: [facility] Start: 11-30-2024 End: 11-30-2024 Bamnatalia manuelheet Jr. Neha Salazar DO Work Phone: [facility] Start: 11-30-2024 End: 11-30-2024 Office outpatient visit 15 minutes Jr. Neha Salazar DO Work Phone: [facility] Comment on above: History of total lef t knee replacement; Chronic pain of left knee Start: 11-30-2024 End: 11-30-2024 ambulatory NEHA DIEGO Not Available Start: 11-26-2024 End: 11-26-2024 ambulatory NEHA SALAZAR JR [facility] Start: 11-26-[address] [facility] Start: 11-26-2024 End: 11-26-2024 ambulatory ENHA SALAZAR JR [facility] Start: 11-12-2024 End: 11-12-2024 External Result Encounter Kimberlee TRAVIS Work Phone: [facility] Unsolicited Start: 11-12-2024 End: 11-12-2024 External Result Encounter Kimberlee TRAVIS Work Phone: [facility] Unsolic[facility] Start: 11-12-2024 End: 11-12-2024 ambulatory NEHA SALAZAR JR [facility] Start: 11-12-2024 Encounter for gynecological examination (general) (routine) without abnormal findings NEHA TUCKERNICOLE LOBO [facility] Start: 11-09-2024 End: 11-09-2024 Bamboo flowsheet JrClaudette Neha Salazar DO Work Phone: [facility] Start: 11-09-2024 End: 11-09-2024 Bamboo flowsheet Jr. Neha Salazar DO Work Phone: [facility] Start: 11-09-2024 End: 11-09-2024 Orders Only Neha Salazar DO Work Phone: [facility] Comment on above: Pain in left knee; Other chronic pain Start: 11-09-2024 End: 11-09-2024 Office outpatient visit 15 minutes Claudette Neha Salazar DO Work Phone: [facility] Comment on above: Chronic pain of left knee; History of total left knee replacement Start: 11-09-2024 End: 11-09-2024 ambulatory NEHA DIEGO Not Available Start: 09-21-2024 End: 09-21-2024 Bamboo Experifunheet JrClaudette Neha Salazar DO Work Phone: [facility] Start: 09-21-2024 End: 09-21-2024 Bamboo flowsheet JrClaudette Neha Salazar DO Work Phone: [facility] Start: 09-21-2024 End: 09-21-2024 Office outpatient visit 15 minutes Claudette Neha Salazar DO Work Phone: [facility] Comment on above: Acute pain of left k nee (Primary Dx); History of total left knee replacement Start: 09-21-2024 End: 09-21-2024 ambulatory NEHA DIEGO Not Available Start: 09-14-2024 End: 09-14-2024 ambulatory KIMBERLEE JANE Not Available Start: 09-14-2024 End: 09-14-2024 Office outpatient visit 15 minutes Kimberlee Jane PA Work Phone: [facility] Comment on above: Encounter for weight management Start: 06-21-2024 End: 06-21-2024 Refill Ben TRAVIS Work Phone: [facility] Comment on above: Acute pain of left k nee Start: 05-03-2024 End: 05-03-2024 Telephone encounter Eduardo King CATH LAB RADIOLOGY TECHNICIAN Work Phone: [facility] Start: 03-18-2024 End: 03-18-2024 Bamboo flowsheet Praveen Jodie DO Work Phone: [facility] Start: 03-18-2024 End: 03-18-2024 Bamboo flowsheet Praveen Jodie DO Work Phone: [facility] Start: 03-18-2024 End: 03-18-2024 Office outpatient visit 15 minutes Praveen Jodie DO Work Phone: [facility] Comment on above: Encounter for weight management Start: 03-18-2024 End: 03-18-2024 ambulatory PRAVEEN JODIE Not Available Start: 09-04-2023 Bamboo flowsheet Kimberlee TRAVIS Work Phone: [facility] Start: 09-04-2023 Bamboo flowsheet Kimberlee TRAVIS Work Phone: [facility] Start: 09-04-2023 Telephone encounter Jr. Neha Salazar DO Work Phone: [facility] Comment on above: Med Refill Start: 01-24-2023 End: 01-25-2023 ambulatory Evan GREGORY Facility: [place] Start: 01-24-2023 End: 01-24-2023 Patient encounter procedure Evan GREGORY [facility] [place] Start: 11-15-2022 End: 11-15-[address] KALYANI SANCHES Facility: Start: 11-10-2022 Encounter for other preprocedural examination DR PRAVEEN FELICIANO . [facility] Start: 11-05-2022 End: 11-06-[address] KALYANI SANCHES Facility:[facility] Start: 11-05-2022 End: 11-06-2022 Encounter for other preprocedural examination DR KALYANI SANCHES Facility:[facility] Start: 10-11-2022 End: 10-12-[address] KALYANI SANCHES Facility:[facility] Start: 10-11-2022 End: 10-12-2022 ambulatory Evan GREGORY Facility:[facility] Start: 10-11-2022 End: 10-11-2022 Patient encounter procedure Evan GREGORY [facility] Start: 10-10-2022 End: 10-11-2022 ambulatory KIMBERLEE JANE . Facility:[facility] Start: 10-04-2022 ambulatory Evan GREGORY Facility :[facility] Start: 10-03-2022 End: 10-03-[address] NANDINI SAVAGE . Facility:[facility] Start: 10-01-2022 End: 10-02-2022 ambulatory KIMBERLEE JANE . Facility:[facility] Start: 08-26-2022 End: 08-26-2022 ambulatory KIMBERLEE JANE . Facility: Procedures Date Procedure Procedure Detail Performing Clinician Start: 12-10-2024 Plain radiography of pelvis Milad Ford MD Work Phone: Start: 12-10-2024 X-ray of left knee, three views Milad Ford MD Work Phone: Start: 11-12-2024 Complete blood count with white cell differential, automated Kimberlee TRAVIS Work Phone: Start: 12-03-2023 Microscopic observat ion [Identifier] in Cervix by Cyto stain Praveen Feliciano DO Work Phone: Start: 08-26-2022 Mammography Kimberlee TRAVIS Work Phone: Total replacement of left knee joint Evan GREGORY Plan of Treatment Date Care Activity Detail Author Start: 01-22-2030 DTaP,Tdap and Td Vaccines (3 - Td or Tdap) DTaP,Tdap and Td Vaccines (3 - Td or Tdap) [facility] Start: 12-02-2026 Screening for malign ant neoplasm of cervix [facility] Start: 03-29-2026 End: 03-29-2026 Patient encounter procedure 03/29/2026 9:00 AM EDT Procedure Visit [facility] [address] [place] [id number] Kimberlee Jane PA [address] [place] [address] [facility] Start: 03-28-2025 Influenza vaccination N [facility] Start: 03-23-2025 End: 05-23-2026 MG Breast - bilateral Screening Bilateral screening mammogram Imaging Routine Breast cancer screening by mammogram Expected: 03/23/2025 (Approximate), Expires: 05/23/2026 [facility] Work Phone: Comment on above: Expected: 03/23/2025 (Approximate), Expires: 05/23/2026 Start: 03-23-2025 End: 03-23-2025 Patient encounter procedure [facility] Comment on above: Arrived Start: 11-30-2024 End: 11-30-2024 Patient encounter procedure [facility] Comment on above: Arrived Start: 11-09-2024 End: 11-09-2025 C reactive protein [Mass/volume] in Serum or Plasma C-reactive protein Lab Routine Chronic pain of left knee Expected: 11/09/2024 (Approximate), Expires: 11/09/2025 [facility] Comment on above: Expected: 11/09/2024 (Approximate), Expires: 11/09/2025 Start: 11-09-2024 End: 11-09-2025 C-reactive protein C-reactive protein Lab Routine Pain in left knee Other chronic pain Expected: 11/09/2024, Expires: 11/09/2025 [facility] Work Phone: Comment on above: Expected: 11/09/2024 , Expires: 11/09/2025 Start: 11-09-2024 End: 11-09-2025 CBC W Auto Differential panel - Blood CBC and differential Lab Routine Chronic pain of left knee Expected: 11/09/2024 (Approximate), Expires: 11/09/2025 [facility] Comment on above: Expected: 11/09/2024 (Approximate), Expires: 11/09/2025 Start: 11-09-2024 End: 11-09-2025 Erythrocyte sedimentation rate [facility] Work Phone: Comment on above: Expected: 11/09/2024 , Expires: 11/09/2025 Expected: 11/09/2024 (Approximate), Expires: 11/09/2025 Start: 11-09-2024 End: 11-09-2025 NM Whole body Bone 3 Phase Views NM bone 3 phase Imaging Routine Chronic pain of left knee History of total left knee replacement Expected: 11/09/2024 (Approximate), Expires: 11/09/2025 [facility] Work Phone: Comment on above: Expected: 11/09/2024 (Approximate), Expires: 11/09/2025 Start: 11-09-2024 End: 11-09-2024 Patient encounter procedure 11/09/2024 8:00 AM EDT Office Visit [facility] [address] [place] [phone] Jr. Neha Salazar, DO [address] [address] Arrived [facility] Comment on above: Arrived Start: 10-12-2024 End: 10-12-2024 Patient encounter procedure 10/12/2024 8:00 AM EDT Office Visit [facility] [address] [place] [phone] Jr. Neha Salazar, DO [address] [facility] [address] [place] [address] [facility] Start: 09-22-2024 End: 09-22-2024 Patient encounter procedure 09/22/2024 2:30 PM EST Office Visit [facility] [address] [place] [address] Jr. Neha Salazar, DO [address] [facility] [address] [place] [address] [facility] Start: 09-21-2024 End: 09-21-2024 Patient encounter procedure [facility] Comment on above: Acute pain of left k nee (Primary Dx); History of total left knee replacement Start: 03-28-2024 Influenza vaccination N [facility] Start: 03-18-2024 End: 03-18-2024 Patient encounter procedure 03/18/2024 10:50 AM EDT Office Visit [facility] [address] [place] [phone] Praveen Feliciano, DO [address] [place], [place] [id number] Arrived [facility] Comment on above: Arrived Start: 10-01-2023 Adult BMI Screening Adult BMI Screen [facility] Start: 09-24-2023 End: 09-24-2023 Patient encounter procedure 09/24/2023 8:30 AM EST Office Visit [facility] [address] [place] [id number] Jr. Neha Salazar, DO [address] [facility] [address] [place] [address] [facility] Start: 09-04-2023 End: 09-04-2023 Patient encounter procedure 09/04/2023 9:20 AM EST Office Visit [facility] [address] [place] [address] Kimberlee Jane PA [address] [place], [place] [id number] Arrived [facility] Comment on above: Arrived Start: 08-26-2023 Screening for malign ant neoplasm of breast Mammogram [facility] Start: 03-28-2023 Influenza vaccination Influenza Vacc ine (#1) [facility] Start: 2006 Screening for malign ant neoplasm of cervix [facility] Start: 1997 Screening for malign ant neoplasm of cervix Pap Smear [facility] Start: 1988 Depression Screening Depression Scre ening [facility] Start: 1988 Tobacco Screening Tobacco Screening [facility] Start: 1976 Screening for malign ant neoplasm of colon [facility] THIN PREP TIS PAP AN D HR HPV DNA THIN PREP TIS PAP AND HR HPV DNA Pathology and Cytology Routine Well woman exam with routine gynecological exam Ordered: 03/23/2025 [facility] Comment on above: Ordered: 03/23/2025 XR Knee - left 1 or 2 Views XR knee 1 or 2 views left Imaging Routine Acute pain of left knee 09/21/2024 8:08 AM EST [facility] Work Phone: Immunizations Immunization Date Immunization Notes Care Provider Sudheer laura 05-02-2020 influenza virus vaccine, unspecified formulation Evan GREGORY [facility] 05-02-2020 influenza, injectabl e, quadrivalent, preservative free Kimberlee TRAVIS Work Phone: [facility] 01-23-2020 tetanus toxoid, redu oral diphtheria toxoid, and acellular pertussis vaccine, adsorbed Evan GREGORY [facility] 05-12-2019 influenza virus vaccine, unspecified formulation Evan GREGORY [facility] 05-12-2019 influenza, injectabl e, quadrivalent, contains preservative Kimberlee TRAVIS Work Phone: [facility] 10-05-2018 hepatitis B vaccine, adult dosage Evan GREGORY [facility] 09-21-2018 tetanus toxoid, redu oral diphtheria toxoid, and acellular pertussis vaccine, adsorbed Evan GREGORY [facility] 04-29-2018 hepatitis B vaccine, adult dosage Evan GREGORY [facility] 03-26-2018 hepatitis B vaccine, adult dosage Evan GREGORY [facility] Payers Date Payer Category Payer Self-pay 2022 Medicaid [id number] 2022 Medicaid [id number] 2019 Unknown [id number] 2017 Private Health Insurance [id number] 1976 Unknown [id number] 2.16.84 0.1.437000.3.579.2.593 1976 Unknown [id number] 2.16.84 0.1.883996.3.579.2.593 1976 Unknown [id number] 2.16.84 0.1.000304.3.579.2.593 1976 Unknown [id number] 2.16.84 0.1.426390.3.579.2.593 1976 Unknown [id number] 2.16.84 0.1.830167.3.579.2.593 1976 Unknown [id number] 2.16.84 0.1.002900.3.579.2.593 1976 Unknown [id number] 2.16.84 0.1.402397.3.579.2.593 1976 Unknown [id number] 2.16.8 40.1.003702.3.579.2.727 1976 Unknown [id number] 2.16.8 40.1.710586.3.579.2.727 1976 Unknown [id number] 2.16.8 40.1.837663.3.579.2.727 1976 Unknown [id number] 2.16. 840.1.882089.3.579.2.128 1976 Unknown [id number] 2.16. 840.1.435342.3.579.2.1285 1976 Unknown [id number] 2.16. 840.1.252538.3.579.2.1285 1976 Unknown [id number] 2.16.84 0.1.949750.3.579.2.1258 1976 Unknown [id number] 2.16.84 0.1.254612.3.579.2.1258 1976 Unknown [id number] 2.16.84 0.1.622056.3.579.2.1258 1976 Unknown [id number] 2.16.84 0.1.735525.3.579.2.1258 1976 Unknown [id number] 2.16.84 0.1.770217.3.579.2.1258 1976 Unknown [id number] 2.16.84 0.1.510127.3.579.2.1258 1976 Unknown [id number] 2.16.84 0.1.784383.3.579.2.1258 1976 Unknown [id number] 2.16. 840.1.198205.3.579.2.1285 1976 Unknown [id number] 2.16. 840.1.213739.3.579.2.1285 1976 Unknown [id number] 2.16. 840.1.630975.3.579.2.1285 1976 Unknown [id number] 2.16. 840.1.748065.3.579.2.1286 1959 Unknown [id number] Unknown [id number] 2.16.8 40.1.909275.3.579.2.531 Social History Date Type Detail Facility Start: 10-11-2022 End: 02-03-2023 Tobacco smoking status Never smoked tobacco (finding) [facility] Start: 02-14-2023 End: 12-08-2024 Sex Assigned At Female [facility] Start: 04-25-2017 End: 02-03-2023 Tobacco use and exposure Smokeless tobacco non-user [facility] Start: 07-25-2023 End: 03-23-2025 Alcohol intake Current drinker of alcohol (finding) [facility] Start: 02-14-2023 End: 12-08-2024 History of Social function [facility] Within the last year , have you been afraid of your partner or ex-partner? No [facility] Are you now , , , , never or living with a partner? [facility] How often to you hav e a drink containing alcohol? Monthly or less [facility] How many standard drinks containing alcohol do you have on a typical day? 1 or 2 [facility] How often do you hav e 6 or more drinks on 1 occasion? Never [facility] How hard is it for you to pay for the very basics like food, housing, medical care, and heating Not hard at all [facility] Do you feel stress - tense, restless, nervous, or anxious, or unable to sleep at night because your mind is troubled all the time - these days [OSQ] To some extent [facility] (I/We) worried whether (my/our) food would run out before (I/we) got money to buy more. Never true [facility] Start: 02-06-2023 Alcohol Comment caffeine intak e : 3-4 cups per day , pop [facility] Start: 1975 Sex Assigned At Not on file [facility] Start: 09-30-2022 Alcoholic beverage intake Current non-drinker of alcohol (finding) [facility] Start: 03-02-2015 End: 12-16-2024 Sex Female (finding) [facility] Tobacco smoking status NHIS Unknown if ever smoked [facility] Work Phone: Start: 1975 Sex Assigned At Female F [facility] NEGATED: Highlighted row [facility] Medical Equipment Procedure Code Equipment Code Equipment Origin al Text Equipment Identifier Dates Cement Bn Bio 40 gm Rpl [id number] - Sna - [id number] Start: 06-12-2021 Cement Bn Bio 40 gm Rpl [id number] - Sna - [id number] Start: 06-12-2021 Component Fem 5 Std Kn Lt Post Stab Cmnt Persona Cocr Strl - Sna - [id number] Start: 06-12-2021 Surface Artc 10m m Persona 3-5 Ef Kn Lt Vivacit-E Post Stab - Sna - [id number], [id number] FDA Start: 06-12-2021 Component Ptlr 3 2mm Persona Alply Kn Strl Lf - [id number], [id number] FDA Start: 06-12-2021 Baseplate Tib 5d F Kn Lt Cmnt Stm Persona Tiv Strl - [id number], [id number] FDA Start: 06-12-2021 Functional Status Date Assessment Result Facility 10-11-2022 Functional Status N/A [facility] Clinical Notes 10-11-2022 to 03-23-2025 THADDEUS Rojas - 03/23/2025 9:00 AM EDTTelephone Encounter - THADDEUS Cash - 03/11/2025 1:05 PM EDTTelephone Encounter - THADDEUS Cash - 03/11/2025 1:05 PM EDT Note Date & Type Note Facility 03-23-2025 History of Presen t illness Narrative Reason for Appointment: Patient ID: Jenn Benson [...] not exceed 2 doses in 24 hours. ALLERGIES [...] nursing note reviewed. Exam conducted with a road supervisor of engines present. Vitals: Estimated body mass index is 28.87 kg/m as calculated from the following: Height as [...] of: THADDEUS Rojas documented in this encounter [facility] 03-11-2025 Telephone encount er Note Motrin rx needed. - Per Jessica phone encounter. [facility] 03-11-2025 Miscellaneous Notes Formattin g of this note might be different from the original. Motrin rx needed. - Per Jessica phone encounter. documented in this encounter [facility] 03-11-2025 Telephone encount er Note Spoke to pt and she states last office visit Dr. Salazar recommended to stop Celebrex and start taking Motrin. She would like it ivana Dejesus in [place]. She said Logan is not suggesting surgery at this time. Possible inj in the future. She is going to hold of on inj at this time and would like the motrin sent in. Pt was grateful for return call. [facility] 03-11-2025 Miscellaneous Notes Formattin g of this note might be different from the original. Spoke to pt and she states last office visit Dr. Salazar recommended to stop Celebrex and start taking Motrin. She would like it sen tot [facility] in [place]. She said Logan is not suggesting surgery at this time. Possible inj in the future. She is going to hold of on inj at this time and would like the motrin sent in. Pt was grateful for return call. Left msg for pt to clarify. Pt previously on celebrex and I do not see any Motrin prescriptions in our recent visits. Can you check with pt to see if she Saw Dr. Ford for her knee and if script came from him? Jenn called and requested a refill on her Ibuprofen. Please call In to [facility] in [place] documented in this encounter [facility] 03-11-2025 Telephone encount er Note Left msg for pt to clarify. [facility] 03-11-2025 Telephone encount er Note Pt previously on celebrex and I do not see any Motrin prescriptions in our recent visits. Can you check with pt to see if she Saw Dr. Ford for her knee and if script came from him? [facility] 03-11-2025 Telephone encount er Note Jenn called and requested a refill on her Ibuprofen. Please call In to [facility]jelica in [place] [facility] 12-10-2024 Evaluation note Diagnosis Onset Date Resolution History of total left knee replacement acute December 10, 2024 9:16am [facility] Work Phone: 1(903) 933-890705-14-2025 History of Present illness Narrative* Stiven Enriquez, CATH LAB RADIOLOGY TECHNICIAN - 12/08/2024 3:00 PM EDT Reason for Appointment: Patient ID: Jenn Benson is a 49 y.o. female who presents for Weight Management Patient presents today for a weight management consultation. Patient desires to initiate Adipex. Initial Vitals for Adipex prescription #1: Estimated body mass index is 30.11 kg/m as calculated from the following: Height as of 03/18/24: 5' 3 . Weight as of this encounter: 170 lb. Allergies as of 12/08/2024 - Reviewed 12/08/2024 Allergen Reaction Noted Hydrocodone-acetaminophen Dizziness, GI intolerance, and Nausea Only 05/18/2021 Tetracycline Unknown and Diarrhea 03/09/2018 Past Medical History: Diagnosis Date Abnormal weight gain BMI 27.0-27.9,adult Depression (CMS/HCC) Gestational diabetes Hx of being hospitalized childbirth Personal history of other medical treatment denies bloodborne dx Umbilical hernia 2012 Past Surgical History: Procedure Laterality Date CERVICAL BIOPSY W/ LOOP ELECTRODE EXCISION 2010 ENDOMETRIAL ABLATION 11/16/2022 KIDNEY STONE SURGERY Right 11/2022 KNEE ARTHROSCOPY W/ ACL RECONSTRUCTION 2017 TOTAL KNEE ARTHROPLASTY Left 05/2021 TOTAL KNEE ARTHROPLASTY Left 06/12/2021 Dr. Salazar UMBILICAL HERNIA REPAIR 2013 with mesh VENTRAL HERNIA REPAIR 2018 Review of Systems: Review of Systems Constitutional: Negative. HENT: Negative. Eyes: Negative. Respiratory: Negative. Cardiovascular: Negative. Gastrointestinal: Negative. Genitourinary: Negative. Musculoskeletal: Negative. Skin: Negative. Neurological: Negative. All other systems reviewed and are negative. Hematological: Negative. Endocrine: Negative. Allergic/Immunologic: Negative. Objective Physical Exam Constitutional: Appearance: Normal appearance. She is well-developed. Genitourinary: Vulva normal. Cardiovascular: Rate and Rhythm: Normal rate and regular rhythm. Pulmonary: Effort: Pulmonary effort is normal. Breath sounds: Normal breath sounds. Abdominal: General: Bowel sounds are normal. There is no distension. Palpations: Abdomen is soft. Tenderness: There is no abdominal tenderness. There is no guarding or rebound. Musculoskeletal: General: No swelling. Normal range of motion. Right lower leg: No edema. Left lower leg: No edema. Neurological: Mental Status: She is alert and oriented to person, place, and time. Skin: General: Skin is warm and dry. Psychiatric: Mood and Affect: Mood normal. Behavior: Behavior normal. Vitals and nursing note reviewed. Exam conducted with a road supervisor of engines present. Assessment/Plan Encounter Diagnosis Name Primary? Encounter for weight management Adipex: Patient presents today for initial Adipex prescription. I have discussed in detail the importance of keeping a food journal, proper nutrition/diet, and exercise regimen while taking Adipex. Patient verbalized understanding and signed consents to initiate (Adipex) medication therapy. Patient was given a printed prescription signed by provider to take to their local pharmacy. Follow Up: Patient is to return to the office in 3 months will need to be captured in order for patient to receive 2nd prescription. Documented by: Stiven Enriquez NP on behalf of Stiven Enriquez NP documented in this encounterExcels[facility] [id number] History of Present illness Narrative* Jr. Neha Salazar, - 11/30/2024 8:30 AM EDT Images from the original note were not included. HISTORY OF PRESENT ILLNESS: EST PT Jenn Benson is an 49 y.o. @ female. (EST PT) RECHECK (L) TKA 06/12/21 (~3YRS 5MO) - HERE FOR BONE SCAN RESULTS 11/26/24 [facility] 11/12/24 XRAY EPIC 09/21/24 XRAY LT KNEE CHANGE 09/24/23 S/P DVT POST-OP 06/18/21 XRAYS, 05/19/23 IN CHANGE / EPIC (L)LE VENOUS DOPPLER 05/08/23 @ [facility] (NEG DVT) S/P PREDISONE 05/19/23, 09/28/21 S/P MDP 08/17/21, 09/21/24 BONE SCAN 11/26/24 [facility] CBC/CRP/SED RATE 11/12/24 [facility]APY @ [place] ; POST-OP S/P NWB IN CAM BOOT 05/19/23 CONTINUES TO HAVE STIFFNESS- ACHING/THROBBING PAIN ANTERIOR KNEE- SYMPTOMS ARE CONSTANT- INCREASE PAIN WITH WEATHER CHANGES-+SWELLING- + INSTABILITY- INCREASED STIFFNESS AFTER PROLONG SITTING/ACTIVITY- HX CELEBREX/MOBIC; DENIES RELIEF- AMBULATES WITH LIMP- CURRENTLY TAKING IBUPROFEN 800MG BID; SLIGHT RELIEF - WEARS BRACE TYPICALLY ALLERGIES: Allergies Allergen Reactions Hydrocodone-Acetaminophen Dizziness, GI intolerance and Nausea Only Tetracycline Unknown and Diarrhea Other Reaction(s): Vomiting HOME MEDICATIONS: Current Outpatient Medications Medication Instructions buPROPion XL (WELLBUTRIN XL) 300 mg, Oral, Daily, Do not crush, chew, or split. famotidine (PEPCID) 20 mg, Oral, Daily loratadine (CLARITIN) 10 mg, Oral, Daily metFORMIN XR (GLUCOPHAGE-XR) 1,000 mg, Oral, Daily methylPREDNISolone (Medrol Dospak) 4 MG tablets Follow schedule on package instructions omeprazole (PRILOSEC) 20 mg, Oral, Daily before breakfast, Do not crush or chew. phentermine (ADIPEX-P) 37.5 mg, Oral, Daily before breakfast 27-1 MG tablet 1 tablet, Oral, Daily PHYSICAL EXAM: Knee Musculoskeletal Exam Gait Gait is normal. Limp: left Inspection Leg length disparity: no discrepancy Left Erythema: none Effusion: none Edema: none Ecchymosis: none Deformity: none Alignment: normal Previous incision: anterior Incision: well-healed Palpation Left Increased warmth: none Masses: none Crepitus: medial Tenderness: present Lateral joint line: moderate Lateral retinaculum: moderate Medial joint line: moderate Medial retinaculum: moderate Patella: mild Range of Motion Left Left knee range of motion is normal and full. Active extension: 0 Active flexion: 125 Strength Left Left knee strength is normal. Extension: 5/5. Flexion: 5/5. Instability Left Instability signs: none - stable Varus stress grade: normal Valgus stress grade: normal Neurovascular Left Left knee neurovascular exam is normal. Pulses - PT: normal Posterior tibial: 2+ Capillary refill: warm and well-perfused Special Signs Left Left knee special signs are normal. Patellar apprehension: none Vitals: There is no height or weight on file to calculate BMI. Tobacco Use: Low Risk (02/13/2024) Patient History Smoking Tobacco Use: Never Smokeless Tobacco Use: Never Passive Exposure: Not on file Alcohol Use: Not At Risk (02/14/2023) AUDIT-C Frequency of Alcohol Consumption: Monthly or less Average Number of Drinks: 1 or 2 Frequency of Binge Drinking: Never IMAGING: Procedures Orders Placed This Encounter Procedures Ambulatory referral to Orthopaedic Surgery PLEASE FAX OFFICE NOTES/LABS/BONE SCAN TO DR FORD Standing Status: Future Expected Date: 11/30/2024 Expiration Date: 06/02/2025 Referral Priority: Routine Referral Type: Consultation Referral Reason: Specialty Services Required Referred to Provider: Milad Ford MD Requested Specialty: Orthopaedic Surgery Number of Visits Requested: 1 ASSESSMENT: ICD-10-CM 1. History of total left knee replacement Z96.652 Ambulatory referral to Orthopaedic Surgery 2. Chronic pain of left knee M25.562 Ambulatory referral to Orthopaedic Surgery G89.29 PLAN: We have discussed her case with her length. We are going to send images and information to Dr. Milad Ford for possible prosthetic loosening. We'll see her back when necessary. We have discussed her restrictions and home exercise program. Questions answered in laymen terms at the bedside. The diagnosis, home exercise plan and any ongoing restrictions/ recommendations reviewed. If unable to be reached in office, I recommend evaluation at nearest Emergency Room if any symptoms worsened or new symptoms develop for requiring urgent evaluation. documented in this encounterExcelsior Springs Medical [id number] History of Present illness Narrative* Jr. Neha Salazar DO - 11/09/2024 8:00 AM EDT Images from the original note were not included. HISTORY OF PRESENT ILLNESS: EST PT Jenn Benson is an 48 y.o. @ female. (EST PT) RECHECK (L) TKA 06/12/21 (~3YRS 5MO) -S/P MDP 09/21/24; DENIES RELIEF - LOOKS LIKE PT WAS SENT FOR SOME LABS BY KIMBERLEE JANE; DID NOT HAVE DONE YET XRAY EPIC 09/21/24 XRAY LT KNEE CHANGE 09/24/23 S/P DVT POST-OP 06/18/21 XRAYS, 05/19/23 IN CHANGE / EPIC (L)LE VENOUS DOPPLER 05/08/23 @ [facility] (NEG DVT) S/P PREDISONE 05/19/23, 09/28/21 S/P MDP 08/17/21, 09/21/24 NO BONE SCAN NO LABS PREVIOUS PHYSICAL THERAPY @ [facility] ; POST-OP S/P NWB IN CAM BOOT 05/19/23 CONTINUES TO HAVE STIFFNESS- PAIN POSTERIOR KNEE- SYMPTOMS ARE CONSTANT- INCREASE PAIN WITH WEATHERCHANGES-+SWELLING- SOME INSTABILITY- INCREASE AFTER PROLONG SITTING/ACTIVITY- HX CELEBREX/MOBIC; DENIES RELIEF- AMBULATES WITH LIMP- CURRENTLY TAKING IBUPROFEN 800MG BID; SLIGHT RELIEF - WEARS BRACE TYPICALLY ALLERGIES: Allergies Allergen Reactions Tetracycline Unknown and Diarrhea Other Reaction(s): Vomiting HOME MEDICATIONS: Current Outpatient Medications Medication Instructions buPROPion XL (WELLBUTRIN XL) 300 mg, Oral, Daily, Do not crush, chew, or split. famotidine (PEPCID) 20 mg, Oral, Daily loratadine (CLARITIN) 10 mg, Oral, Daily metFORMIN XR (GLUCOPHAGE-XR) 1,000 mg, Oral, Daily methylPREDNISolone (Medrol Dospak) 4 MG tablets Follow schedule on package instructions omeprazole (PRILOSEC) 20 mg, Oral, Daily before breakfast, Do not crush or chew. phentermine (ADIPEX-P) 37.5 mg, Oral, Daily before breakfast 27-1 MG tablet 1 tablet, Oral, Daily PHYSICAL EXAM: Knee Musculoskeletal Exam Gait Gait is normal. Antalgic: left Limp: left Inspection Leg length disparity: no discrepancy Left Erythema: none Effusion: none Edema: none Ecchymosis: none Deformity: none Alignment: normal Previous incision: anterior Incision: well-healed Palpation Left Increased warmth: none Masses: none Tenderness: present Lateral joint line: moderate Medial retinaculum: moderate Patella: mild Range of Motion Left Left knee range of motion is normal and full. Active extension: 0 Active flexion: 125 Strength Left Left knee strength is normal. Extension: 5/5. Flexion: 5/5. Instability Left Instability signs: none - stable Varus stress grade: normal Valgus stress grade: normal Neurovascular Left Left knee neurovascular exam is normal. Pulses - PT: normal Posterior tibial: 2+ Capillary refill: warm and well-perfused Special Signs Left Left knee special signs are normal. Patellar apprehension: none Vitals: There is no height or weight on file to calculate BMI. Tobacco Use: Low Risk (02/13/2024) Patient History Smoking Tobacco Use: Never Smokeless Tobacco Use: Never Passive Exposure: Not on file Alcohol Use: Not At Risk (02/14/2023) AUDIT-C Frequency of Alcohol Consumption: Monthly or less Average Number of Drinks: 1 or 2 Frequency of Binge Drinking: Never IMAGING: Procedures Orders Placed This Encounter Procedures NM bone 3 phase TO [facility] DONE AT [facility]. CONCERN FOR PROSTHETIC LOOSENING Standing Status: Future Expected Date: 11/09/2024 Expiration Date: 11/09/2025 Is the patient ?: No Reason for exam:: LEFT KNEE PAIN C-reactive protein Standing Status: Future Number of Occurrences: 1 Expected Date: 11/09/2024 Expiration Date: 11/09/2025 Print requisition?: No Sedimentation rate, automated Standing Status: Future Number of Occurrences: 1 Expected Date: 11/09/2024 Expiration Date: 11/09/2025 Print requisition?: No CBC and differential Standing Status: Future Number of Occurrences: 1 Expected Date: 11/09/2024 Expiration Date: 11/09/2025 Scheduling Instructions: [facility] Print requisition?: No ASSESSMENT: ICD-10-CM 1. Chronic pain of left knee M25.562 NM bone 3 phase G89.29 C-reactive protein Sedimentation rate, automated CBC and differential C-reactive protein Sedimentation rate, automated CBC and differential 2. History of total left knee replacement Z96.652 NM bone 3 phase PLAN: We have discussed her symptoms At length today. We have recommended a bone scan, a CRP, sedimentation rate and CBC. We will see her back in 3 weeks to discuss the results of her lab work and bone scan. If her symptoms persist or worsen and Her workup is negative we may send her to Dr. Bangura for a second opinion. Questions answered in laymen terms at the bedside. The diagnosis, home exercise plan and any ongoing restrictions/ recommendations reviewed. If unable to be reached in office, I recommend evaluation at nearest Emergency Room if any symptoms worsened or new symptoms develop for requiring urgent evaluation. documented in this encounterExcelsior Springs Medical [id number] History of Present illness Narrative* Jr. Neha Salazar DO - 09/21/2024 8:00 AM EST Images from the original note were not included. HISTORY OF PRESENT ILLNESS: EST PT Jenn Benson is an 48 y.o. @ female. (EST PT) HERE FOR YEARLY (L) TKA 06/12/21 (~3YRS 3MO) - INCREASED PAIN AND STIFFNESS FOR 1 MONTH. XRAY TODAY EPIC 09/21/24 XRAY LT KNEE CHANGE 09/24/23 S/P DVT POST-OP 06/18/21 XRAYS, 05/19/23 IN CHANGE / EPIC (L)LE VENOUS DOPPLER 05/08/23 @ [facility] (NEG DVT) S/P PREDISONE 05/19/23, 09/28/21 S/P MDP 08/17/21 NO BONE SCAN PREVIOUS PHYSICAL THERAPY @ [facility] ; POST-OP S/P NWB IN CAM BOOT 05/19/23 PT C/O STIFFNESS CONSTANTLY- INCREASED PAIN WITH WEATHER CHANGES AND STAIRS- ADMITS LIMPING- PAIN WITH FLEXION- INTERMITTENT SWELLING, WORSE AFTER WORK- KNEE DOES GIVE OUT- + CELEBREX QD (NO RELIEF) ALLERGIES: Allergies Allergen Reactions Tetracycline Unknown and Diarrhea Other Reaction(s): Vomiting HOME MEDICATIONS: Current Outpatient Medications Medication Instructions buPROPion XL (WELLBUTRIN XL) 300 mg, Oral, Daily, Do not crush, chew, or split. celecoxib (CELEBREX) 200 mg, Oral, Daily famotidine (PEPCID) 20 mg, Oral, Daily loratadine (CLARITIN) 10 mg, Oral, Daily metFORMIN XR (GLUCOPHAGE-XR) 1,000 mg, Oral, Daily omeprazole (PRILOSEC) 20 mg, Oral, Daily before breakfast, Do not crush or chew. phentermine (ADIPEX-P) 37.5 mg, Oral, Daily before breakfast 27-1 MG tablet 1 tablet, Oral, Daily PHYSICAL EXAM: Knee Musculoskeletal Exam Gait Gait is normal. Antalgic: left Limp: left Inspection Leg length disparity: no discrepancy Left Erythema: none Effusion: none Edema: none Ecchymosis: none Deformity: none Alignment: normal Previous incision: anterior Incision: well-healed Palpation Left Left knee palpation is unremarkable. Increased warmth: none Masses: none Tenderness: none Range of Motion Left Left knee range of motion is normal and full. Active extension: 0 Active flexion: 115 Strength Left Left knee strength is normal. Extension: 5/5. Flexion: 5/5. Instability Left Instability signs: none - stable Varus stress grade: normal Valgus stress grade: normal Neurovascular Left Left knee neurovascular exam is normal. Pulses - PT: normal Posterior tibial: 2+ Capillary refill: warm and well-perfused Special Signs Left Left knee special signs are normal. Patellar apprehension: none Vitals: There is no height or weight on file to calculate BMI. Tobacco Use: Low Risk (02/13/2024) Patient History Smoking Tobacco Use: Never Smokeless Tobacco Use: Never Passive Exposure: Not on file Alcohol Use: Not At Risk (02/14/2023) AUDIT-C Frequency of Alcohol Consumption: Monthly or less Average Number of Drinks: 1 or 2 Frequency of Binge Drinking: Never IMAGING: Procedures No orders of the defined types were placed in this encounter. ASSESSMENT: No diagnosis found. PLAN: We have discussed her case with her at length including her restrictions and her home exercise program. We have ordered a Medrol Dosepak for her. If her symptoms persist or worsen we see her back in 1 month we will recommend labs and/or possible bone scan. The operative lower extremity was neurovascularly intact with any sensory or motor deficits noted distal to the knee. Operative lower extremity swelling was well controlled and compartments were soft. Patient was able to motor feet and toes and ankles in all anatomic planes bilaterally with 5 out of 5 strength. Incision is well-healed. Questions answered in laymen terms at the bedside. The diagnosis, home exercise plan and any ongoing restrictions/ recommendations reviewed. If unable to be reached in office, I recommend evaluation at nearest Emergency Room if any symptoms worsened or new symptoms develop for requiring urgent evaluation. documented in this [facility]Ex[facility] [id number] History of Present illness Narrative* THADDEUS Rojas - 09/14/2024 1:00 PM EST Reason for Appointment: Patient ID: Jenn Benson is a 48 y.o. female who presents for Weight Management Patient presents today for a weight management consultation. Patient desires to initiate Adipex. Initial Vitals for Adipex prescription #1: Estimated body mass index is 30.82 kg/m as calculated from the following: Height as of 03/18/24: 5' 3 . Weight as of 03/18/24: 174 lb. Allergies as of 09/14/2024 - Reviewed 09/14/2024 Allergen Reaction Noted Tetracycline Unknown and Diarrhea 03/09/2018 Past Medical History: Diagnosis Date Abnormal weight gain BMI 27.0-27.9,adult Depression (CMS/HCC) Gestational diabetes Hx of being hospitalized childbirth Personal history of other medical treatment denies bloodborne dx Umbilical hernia 2012 Past Surgical History: Procedure Laterality Date CERVICAL BIOPSY W/ LOOP ELECTRODE EXCISION 2009 ENDOMETRIAL ABLATION 11/16/2022 KIDNEY STONE SURGERY Right 11/2022 KNEE ARTHROSCOPY W/ ACL RECONSTRUCTION 2017 TOTAL KNEE ARTHROPLASTY Left 05/2021 TOTAL KNEE ARTHROPLASTY Left 06/12/2021 Dr. Salazar UMBILICAL HERNIA REPAIR 2012 with mesh VENTRAL HERNIA REPAIR 2017 Review of Systems: Review of Systems Constitutional: Negative. HENT: Negative. Eyes: Negative. Respiratory: Negative. Cardiovascular: Negative. Gastrointestinal: Negative. Genitourinary: Negative. Musculoskeletal: Negative. Skin: Negative. Neurological: Negative. All other systems reviewed and are negative. Hematological: Negative. Endocrine: Negative. Allergic/Immunologic: Negative. Objective Physical Exam Constitutional: Appearance: Normal appearance. She is normal weight. HENT: Head: Normocephalic. Cardiovascular: Rate and Rhythm: Normal rate. Pulses: Normal pulses. Pulmonary: Effort: Pulmonary effort is normal. Breath sounds: Normal breath sounds. Abdominal: Palpations: Abdomen is soft. Musculoskeletal: General: Normal range of motion. Neurological: General: No focal deficit present. Mental Status: She is alert and oriented to person, place, and time. Psychiatric: Mood and Affect: Mood normal. Behavior: Behavior normal. Thought Content: Thought content normal. Judgment: Judgment normal. Vitals and nursing note reviewed. Assessment/Plan Encounter Diagnosis Name Primary? Encounter for weight management Adipex: Patient presents today for initial Adipex prescription. I have discussed in detail the importance of keeping a food journal, proper nutrition/diet, and exercise regimen while taking Adipex. Patient verbalized understanding and signed consents to initiate (Adipex) medication therapy. Patient was given a printed prescription signed by provider to take to their local pharmacy. Follow Up: Patient is to return to the office in 3 month for further evaluation to assess patient progress. Documented by: Zayra Reyes MA on behalf of THADDEUS Rojas documented in this [facility]10-07-2024 Telephone encounter Note* Telephone Encounter - Eduardo King NP - 05/03/2024 4:05 PM EDT [id number] Miscellaneous Notes* Telephone Encounter - Eduardo King NP - 05/03/2024 4:05 PM EDT Rx sent to pharmacy * Telephone Encounter - Reanna Royal - 05/03/2024 3:48 PM EDT Patient stopped by needing a script for antibiotic for her dentist appt? documented in this [facility]10-07-2024 Telephone encounter Note* Telephone Encounter - Reanna Royal - 05/03/2024 3:48 PM EDT Patient stopped by needing a script for antibiotic for her dentist appt? [facility] [id number] History of Present illness Narrative* Dolly Sue LPN - 03/18/2024 10:50 AM EDT Reason for Appointment: Patient ID: Jenn Benson is a 48 y.o. female who presents for Weight Management Patient presents today for Weight Management Consult. MEDICATIONS Current Outpatient Medications Medication Instructions albuterol HFA (ProAir HFA) 90 mcg/act inhaler 2 puffs, Inhalation, Every 4 hours PRN azithromycin (Zithromax Z-Derek) 250 MG tablet As directed celecoxib (CELEBREX) 200 mg, Oral, Daily cetirizine (ZYRTEC ALLERGY) 10 mg, Oral, Daily famotidine (PEPCID) 20 mg, Oral, Daily famotidine (PEPCID) 20 mg, Oral, Daily loratadine (CLARITIN) 10 mg, Oral, Daily metFORMIN XR (Glucophage-XR) 500 MG 24 hr tablet TAKE 1 TABLET BY MOUTH EVERY DAY WITH THE EVENING MEAL for 90 omeprazole (PRILOSEC) 20 mg, Oral, Daily before breakfast, Do not crush or chew. phentermine (ADIPEX-P) 37.5 mg, Oral, Daily before breakfast phentermine (ADIPEX-P) 37.5 mg, Oral, Daily before breakfast Vit-Fe Fumarate-FA ( Plus/Iron) 27-1 MG tablet 1 tablet, Oral, Daily ALLERGIES Allergies Allergen Reactions Tetracycline Unknown and Diarrhea Other Reaction(s): Vomiting PROBLEMS Active Ambulatory Problems Diagnosis Date Noted Abnormal uterine bleeding 02/03/2023 Abnormal weight gain 02/03/2023 Artificial knee joint present 02/03/2023 Bipolar 2 disorder ([facility] 02/03/2023 Depression with anxiety 02/03/2023 Depression ([facility]) 02/03/2023 Difficulty walking 02/03/2023 Insulin resistance syndrome 02/03/2023 Effusion, left knee 02/03/2023 Menorrhagia 02/03/2023 Osteoarthritis of knee 02/03/2023 Other chronic pain 02/03/2023 Pain in female pelvis 02/03/2023 Pain in left knee 02/03/2023 Right kidney stone 02/03/2023 Status post total left knee replacement 02/03/2023 Thickened endometrium 02/03/2023 Resolved Ambulatory Problems Diagnosis Date Noted No Resolved Ambulatory Problems Past Medical History: Diagnosis Date BMI 27.0-27.9,adult Gestational diabetes Hx of being hospitalized Personal history of other medical treatment Umbilical hernia 2013 HISTORY PAST MEDICAL HISTORY SOCIAL HISTORY Past Medical History: Diagnosis Date Abnormal weight gain BMI 27.0-27.9,adult Depression ([facility]) Gestational diabetes Hx of being hospitalized childbirth Personal history of other medical treatment denies bloodborne dx Umbilical hernia 2013 Social History Tobacco Use Smoking status: Never [...] Left 06/12/2021 Dr. Salazar UMBILICAL HERNIA REPAIR 2012 with mesh VENTRAL HERNIA REPAIR 2018 REVIEW OF SYSTEMS Review of Systems: Review of Systems All other systems reviewed and are negative. OBJECTIVE Objective: Physical Exam Constitutional: Appearance: Normal appearance. She is well-developed. Cardiovascular: Rate and Rhythm: Normal rate and regular rhythm. Pulmonary: Effort: Pulmonary effort is normal. Breath sounds: Normal breath sounds. Abdominal: General: Bowel sounds are normal. There is no distension. Palpations: Abdomen is soft. Tenderness: There is no abdominal tenderness. There is no guarding or rebound. Musculoskeletal: General: No swelling. Normal range of motion. Right lower leg: No edema. Left lower leg: No edema. Neurological: Mental Status: She is alert and oriented to person, place, and time. Skin: General: Skin is warm and dry. Psychiatric: Mood and Affect: Mood normal. Behavior: Behavior normal. Vitals and nursing note reviewed. Exam conducted with a road supervisor of engines present. Vitals: Estimated body mass index is 30.82 kg/m as calculated from the following: Height as of this encounter: 5' 3 . Weight as of this encounter: 174 lb. BP: 116/72 No LMP recorded. Patient has had an ablation. ASSESSMENT & PLAN ICD-10-CM 1. Encounter for weight management Z76.89 phentermine (Adipex-P) 37.5 MG tablet DISCONTINUED: phentermine (Adipex-P) 37.5 MG tablet Patient presents today for initial Adipex prescription. The importance of keeping a food journal, proper nutrition/diet, and exercise regimen while taking Adipex has been discussed. Patient verbalized understanding and signed consents to initiate (Adipex) medication therapy. Patient was given a printed prescription signed by provider to take to their local pharmacy. Follow Up: Patient is to return to the office in 3 months. Patient given 90 day supply. Documented by Dolly Sue LPN on behalf of: Praveen Feliciano DO documented in this [facility]02-08-2024 Telephone encounter Note* Telephone Encounter - THADDEUS Cash - 09/04/2023 3:15 PM EST Rx [facility]. Please notify pt. [facility] [id number] Miscellaneous Notes* Telephone Encounter - THADDEUS Cash - 09/04/2023 3:15 PM EST Rx sent to [facility]. Please notify pt. * Telephone Encounter - Ena La - 09/04/2023 3:02 PM EST Patient called requesting antibiotic be sent to [facility] for upcoming dentist appointment. Allergies are listed in chart. Patient's call back is [phone]. Please advise, thank you documented in this [facility]02-08-2024 Telephone encounter Note* Telephone Encounter - Ena La - 09/04/2023 3:02 PM EST Patient called requesting antibiotic be sent to [facility] for upcoming dentist appointment. Allergies are listed in chart. Patient's call back is [phone]. Please advise, [facility] you [facility] [id number] NoteOPERATIVE NOTE OPERATION DATE: 11/15/2022 PROCEDURE: Vicky endometrial ablation with hysteroscopy. PREOPERATIVE DIAGNOSIS: Menorrhagia. POSTOPERATIVE DIAGNOSIS: Menorrhagia. ANESTHESIA: General. SURGEON: Praveen Feliciano D.O. MANUFACTURING MANAGEMENT ASSOCIATE: None. BLOOD LOSS: 5 mL. URINE OUTPUT: Yellow and clear. FINDINGS: Both ostia seen. No gross evidence of polyps, fibroid or malignancy. SPECIMEN: None. PROCEDURE: The patient was taken back to the OR where she was prepped and draped in the normal sterile fashion after being placed in the dorsal lithotomy position, after being placed under general anesthesia without difficulty. A weighted speculum was placed into the vagina. The anterior lip was grasped with a single tooth tenaculum. The patient was then sounded to approximated 8 cm. The patient's cervix was gently dilated using Hegar dilators. The hysteroscope was passed through the cervix into the uterus where both ostia were seen. No gross evidence of polyps, fibroids or malignancy. The cervical length was noted to be 4 cm. The total cavity length is 4 cm. The Vicky ablation apparatus was set to approximately 4 cm in length. This was placed through the cervix and into the uterus. After the seal was tested, at that time the total ablation of 120 seconds was performed with the Vicky without difficulty. All instruments were removed from the vagina. Excellent hemostasis noted. Sponge and lap count correct times 2. Patient taken to recovery in stable condition.[id number] Hospital Discharge instructions Follow Up Care 10/24/2022 15:19:40 With:BRI GORE, Evan R, URL Address: [address] [place], [place] [id number]- When: Unknown [facility] 03-17-2023 Hospital Discharge instructions Patient Education 10/11/2022 11:26:11 Kidney Stones, Vgcn-ms-Nlaw Kidney Stones Kidney stones are rock-like masses that form inside of the kidneys. Kidneys are organs that make pee (urine). A kidney stone may move into other parts of the urinary tract, including: The tubes that connect the kidneys to the bladder (ureters). The bladder. The tube that carries urine out of the body (urethra). Kidney stones can cause very bad pain and can block the flow of pee. The stone usually leaves your body (passes) through your pee. You may need to have a doctor take out the stone. What are the causes? Kidney stones may be caused by: A condition in which certain glands make too much parathyroid hormone (primary hyperparathyroidism). A buildup of a type of crystals in the bladder made of a chemical called uric acid. The body makes uric acid when you eat certain foods. Narrowing (stricture) of one or both of the ureters. A kidney blockage that you were born with. Past surgery on the kidney or the ureters, such as gastric bypass surgery. What increases the risk? You are more likely to develop this condition if: You have had a kidney stone in the past. You have a family history of kidney stones. You do not drink enough water. You eat a diet that is high in protein, salt (sodium), or sugar. You are overweight or very overweight (obese). What are the signs or symptoms? Symptoms of a kidney stone may include: Pain in the side of the belly, right below the ribs (flank pain). Pain usually spreads (radiates) to the groin. Needing to pee often or right away (urgently). Pain when going pee (urinating). Blood in your pee (hematuria). Feeling like you may vomit (nauseous). Vomiting. Fever and chills. How is this treated? Treatment depends on the size, location, and makeup of the kidney stones. The stones will often pass out of the body through peeing. You may need to: Drink more fluid to help pass the stone. In some cases, you may be given fluids through an IV tube put into one of your veins at the hospital. Take medicine for pain. Make changes in your diet to help keep kidney stones from coming back. Sometimes, medical procedures are needed to remove a kidney stone. This may involve: A procedure to break up kidney stones using a beam of light (laser) or shock waves. Surgery to remove the kidney stones. Follow these instructions at home: Medicines Take vfrs-dxc-aeshbgx and prescription medicines only as told by your doctor. Ask your doctor if the medicine prescribed to you requires you to avoid driving or using heavy machinery. Eating and drinking Drink enough fluid to keep your pee pale yellow. You may be told to drink at least 8 10 glasses of water each day. This will help you pass the stone. If told by your doctor, change your diet. This may include: ?Limiting how much salt you eat. ?Eating more fruits and vegetables. ?Limiting how much meat, poultry, fish, and eggs you eat. Follow instructions from your doctor about eating or drinking restrictions. General instructions Collect pee samples as told by your doctor. You may need to collect a pee sample: ?24 hours after a stone comes out. ?8 12 weeks after a stone comes out, and every 6 12 months after that. Strain your pee every time you pee (urinate), for as long as told. Use the strainer that your doctor recommends. Do not throw out the stone. Keep it so that it can be tested by your doctor. Keep all follow-up visits as told by your doctor. This is important. You may need follow-up tests. How is this prevented? To prevent another kidney stone: Drink enough fluid to keep your pee pale yellow. This is the best way to prevent kidney stones. Eat healthy foods. Avoid certain foods as told by your doctor. You may be told to eat less protein. Stay at a healthy weight. Where to find more information National Kidney Foundation (NKF): www.kidney.org Urology Care Foundation (UCF): www.urologyhealth.org Contact a doctor if: You have pain that gets worse or does not get better with medicine. Get help right away if: You have a fever or chills. You get very bad pain. You get new pain in your belly (abdomen). You pass out (faint). You cannot pee. Summary Kidney stones are rock-like masses that form inside of the kidneys. Kidney stones can cause very bad pain and can block the flow of pee. The stones will often pass out of the body through peeing. Drink enough fluid to keep your pee pale yellow. This information is not intended to replace advice given to you by your health care provider. Make sure you discuss any questions you have with your health care provider. Document Released: 12/30/2008 Document Revised: 11/30/2019 Document Reviewed: 11/30/2019 Applimation Patient Education 2020 Resource Interactive. Follow Up Care 10/04/2022 13:25:16 With:BRI GORE, Evan R, URL Address: [address] [place] [id number]- When: Unknown [facility] evaluation + Plan note No data available for this section [facility] [place] evalefhdjg note* Diagnosis History of total left knee replacement- Primary [facility] Diagnosis History of total left knee replacement- Primary [facility]* Diagnosis Acute pain of left knee [facility]* Diagnosis Encounter for weight management documented in [facility]* Diagnosis Encounter for weight management documented in this encounter [facility]* Diagnosis Acute pain of left knee- Primary History of total left knee replacement documented in this encounter [facility]* Diagnosis Pain in left knee Other chronic pain [facility]* Diagnosis Chronic pain of left knee History of total left knee replacement documented in this encounter [facility]* Diagnosis History of total left knee replacement Chronic pain of left knee [facility]* Diagnosis Encounter for weight management documented in this encounter [facility]* Diagnosis History of total left knee replacement- Primary Chronic pain of left knee [facility]* Diagnosis Well woman exam with routine gynecological exam Routine gynecological examination Breast cancer screening by mammogram documented in this encounter [facility] HealthcareInstructionsNot on filedocumented in this [facility] No data available for this section [facility] Summary Purpose Family History No Family History Records FoundNo Family History Records FoundNo Family History Records FoundNo Family History Records FoundNo Family History Records FoundNo Family History Records FoundNo Family History Records Found Advance Directives Date Activated Date Inactivated Comments 09/30/2022 4:50 AM 09/30/2022 1:18 PM Date Activated Date Inactivated Comments 06/12/2021 4:52 PM 06/12/2021 11:49 PM Advance Directive Response Recorded Date/ Time Advance Directives No December 16 1:26pm Chief Complaint and Reason for Visit Chief Complaint Admit Date Z96.652 - Presence of left artificial kn ee joint December 10, 2024 8:17am CONSULT DR SALAZAR LT TKA PAIN GET December 10, 2024 9:16am 1 WEEK December 16, 2024 1:26p m Reason for Visit Admit Date History of total left knee replacement M ay 2024 9:16am Additional Source Comments INFORMATION SOURCE (unrecogn ized section and content) DATE CREATED AUTHOR 03/30/2022 [facility] DATE CREATED AUTHOR AUTHOR'S ORGANIZ ATION 2022 [facility] DATE CREATED AUTHOR AUTHOR'S ORGANIZ ATION 01/25/2023 [facility] DATE CREATED AUTHOR AUTHOR'S ORGANIZ ATION 12/01/2024 [facility] DATE CREATED AUTHOR AUTHOR'S ORGANIZ ATION 12/10/2024 [facility] EPIC DATE CREATED AUTHOR AUTHOR'S ORGANIZ ATION [facility] DATE CREATED AUTHOR AUTHOR'S ORGANIZ ATION 12/14/2024 [facility] Patient Care team informatio n (unrecognized section and content) Plant Engineering Manager Relationship Specialty Start Date End Date Park Perdomo MD [address] [place] [address] PCP - General Family Medicine 02/03/23 Idalmis Kramer NP [address] [place] [address] Nurse Practitioner Family Medicine 02/03/23 Plant Engineering Manager Relationship Specialty Start Date End Date Park Perdomo MD [address] [place] [address] PCP - General Family Medicine 02/03/23 Idalmis Kramer NP [address] [place] [address] Nurse Practitioner Family Medicine 02/03/23 Plant Engineering Manager Relationship Specialty Start Date End Date Park Perdomo MD [address] [place] [address] PCP - General Family Medicine 02/03/23 Franklin Sanchez MD [address] [facility] [address] [place] [address] PCP - [facility] 10/27/23 Idalmis Kramer NP [address] [place] [address] Nurse Practitioner Family Medicine 02/03/23 Plant Engineering Manager Relationship Specialty Start Date End Date Park Perdomo MD [address] [place] [address] PCP - General Family Medicine 02/03/23 Franklin Sanchez MD [address] [facility] [address] [place] [address] PCP - [facility] 10/27/23 Idalmis Kramer NP [address] [place] [address] Nurse Practitioner Family Medicine 02/03/23 Plant Engineering Manager Relationship Specialty Start Date End Date Park Perdomo MD [address] [place] [address] PCP - General Family Medicine 02/03/23 Idalmis Kramer NP [address] [place] [address] Nurse Practitioner Family Medicine 02/03/23 Plant Engineering Manager Relationship Specialty Start Date End Date Park Perdomo MD [address] [place] [address] PCP - General Family Medicine 02/03/23 Idalmis Kramer NP [address] [place] [address] Nurse Practitioner Family Medicine 02/03/23 Plant Engineering Manager Relationship Specialty Start Date End Date Park Perdomo MD [address] [place] [address] PCP - General Family Medicine 02/03/23 Franklin Sanchez MD [address] [facility] [address] [place] [address] PCP - [facility] 10/27/23 Idalmis Kramer NP [address] [place] [address] Nurse Practitioner Family Medicine 02/03/23 Plant Engineering Manager Relationship Specialty Start Date End Date Park ePrdomo MD [address] [place] [address] PCP - General Family Medicine 02/03/23 Franklin Sanchez MD [address] [facility] [facility] [address] [place] [address] PCP - [facility]OM[facility] Arnold [facility] 10/27/23 Idalmis Kramer NP [address] [place] [address] Nurse Practitioner Family Medicine 02/03/23 Plant Engineering Manager Relationship Specialty Start Date End Date Park Perdomo MD [address] [place] [address] PCP - General Family Medicine 02/03/23 Franklin Sanchez MD [address] [facility] [address] [place] [address] PCP - NOMS Arnold [facility] 10/27/23 Idalmis Kramer CATH LAB RADIOLOGY TECHNICIAN [address] [place] [address] Nurse Practitioner Family Medicine 02/03/23 Plant Engineering Manager Relationship Specialty Start Date End Date Kalyani Sanches MD PCP - General Family Medicine 04/03/20 Plant Engineering Manager Relationship Specialty Start Date End Date Park Perdomo MD [address] [place] [address] PCP - General Family Medicine 02/03/23 Franklin Sanchez MD [address] [facility] [address] [place] [address] PCP - NOMS Arnold [facility] 10/27/23 TwinIdalmis cesar CATH LAB RADIOLOGY TECHNICIAN [address] [place] [address] Nurse Practitioner Family Medicine 02/03/23 Plant Engineering Manager Relationship Specialty Start Date End Date Park Perdomo MD [address] [place] [address] PCP - General Family Medicine 02/03/23 Franklin Sanchez MD [address] [facility] [address] [place] [address] PCP - NOMS Arnold [facility] 10/27/23 Idalmis Kramer NP [address] [place] [address] Nurse Practitioner Family Medicine 02/03/23 Plant Engineering Manager Relationship Specialty Start Date End Date Park Perdomo MD [address] [place] [address] PCP - General Family Medicine 02/03/23 Franklin Sanchez MD [address] [place] [address] PCP - NOMS Arnold [facility] 10/27/23 Idalmis Kramer NP [address] [place] [address] Nurse Practitioner Family Medicine 02/03/23 Plant Engineering Manager Relationship Specialty Start Date End Date Park Perdomo MD [address] [place] [address] PCP - General Family Medicine 02/03/23 Franklin Sanchez MD [address] [place] [address] PCP - NOMS Arnold [facility] 10/27/23 Idalmis Kramer NP [address] [place] [address] Nurse Practitioner Family Medicine 02/03/23 Team Status: Active Member Role Status Dates NON STAFF Primary Care Provider Active Team Status: Inactive Member Role Status Dates Milad Ford II, MD Attending Provider Active Start: December 10, 2024 End: December 10, 2024 Team Status: Inactive Member Role Status Dates Milad Ford II, MD Attending Provider Active Start: December 10, 2024 End: December 10, 2024 NON STAFF Primary Care Provider Active Start: December 10, 2024 End: December 10, 2024 Team Status: Inactive Member Role Status Dates NON STAFF Primary Care Provider Active Start: December 16, 2024 End: December 16, 2024 Milad Ford II, MD Attending Provider Active Start: December 16, 2024 End: December 16, 2024 Plant Engineering Manager Relationship Specialty Start Date End Date Park Perdomo MD [address] [place] [address] PCP - General Family Medicine 02/03/23 Franklin Sanchez MD [address] [facility] [address] [place] [address] PCP - NOMS Arnold [facility] 10/27/23 Idalmis Kramer NP [address] [place] [address] Nurse Practitioner Family Medicine 02/03/23 Plant Engineering Manager Relationship Specialty Start Date End Date Park Perdomo MD [address] [place] [address] PCP - General Family Medicine 02/03/23 Franklin Sanchez MD [address] [facility] [address] [place] [address] PCP - NOMS Arnold [facility] 10/27/23 Idalmis Kramer NP [address] [place] [address] Nurse Practitioner Family Medicine 02/03/23 Plant Engineering Manager Relationship Specialty Start Date End Date Park Perdomo MD [address] [place] [address] PCP - General Family Medicine 02/03/23 Franklin Sanchez MD [address] [facility] [address] [place] [address] PCP - NOMS Arnold [facility] 10/27/23 Idalmis Kramer NP [address] [place] [address] Nurse Practitioner Family Medicine 02/03/23 Reason for Visit (unrecogniz ed section and content) Reason Onset Date Comments Med Refill 09/04/2023 Reason Comments Med Refill Reason Comments Weight Management Reason Comments Follow-up Reason Comments Pain Reason Comments Follow-up Reason Onset Date Comments Med Refill 03/11/2025 Ibuprofen 800mg Reason Comments Well Women Visit Goals (unrecognized section and content) Goals may be documented in a n alternate section FOR RECORDS PERTAINING TO PATIENTS WHO ARE OR HAVE BEEN ENROLLED IN A CHEMICAL DEPENDENCY/SUBSTANCEABUSE PROGRAM, SOME INFORMATION MAY BE OMITTED. This clinical summary was aggregated from multiple sources. Caution should be exercised in using it in the provision of clinical care. This summary normalizes information from multiple sources, and as a consequence, information in this document may materially change the coding, format and clinical context of patient data. In addition, data may be omitted in some cases. CLINICAL DECISIONS SHOULD BE BASED ON THE PRIMARY CLINICAL RECORDS. [employer] provides no warranty or guarantee of the accuracy or completeness of information in this document.
[2025-03-25 10:09] LABS: Age Gdln ACOG Testing Note (.); IGP, Aptima HPV, rfx 16/18,45 Note (.)
== END 2025-03-23 14:49 | disposition home or self-care (01) ==
LOC: LAB 14:48
PROVIDERS: PCP Family Medicine; Visit Provider Physician Assistant
DX: Z01.419 Encounter for gynecological examination (general) (routine) without abnormal findings (principal)
CPT/HCPCS: 87624; 88175

== ENCOUNTER 2025-04-01 12:20 | Outpatient (OUT) | payer MEDICAID, SELFPAY ==
--- OUTSIDE RECORDS SUMMARY | 2025-04-01 12:39 | XMS_ITS | CCD ---
Author Organization [facility] Care Team Providers Care Lang Path Therapist Name Role Phone KALYANI SANCHES Primary Care Physician NEEL ., KIMBERLEE Admitting Unavailable MYRON, DR LEDBETTER Primary Care Unavailable NEEL ., KIMBERLEE Attending Unavailable Kenna Welch Consulting Unavailable NEEL ., KIMBERLEE Consulting Unavailable HAY ., DR [...] Unavailable BRI ., DR KOHLER Consulting Unavailable BRI ., DR KOHLER Attending Unavailable BRI ., DR KOHLER Admitting Unavailable RAFITA NOONAN Consulting Unavailable NEEL ., KIMBERLEE Admitting Unavailable NEEL ., KIMBERLEE Consulting Unavailable MYRON, DR LEDBETTER Primary Care Unavailable NEEL ., KIMBERLEE Attending Unavailable NEEL ., KIMBERLEE Consulting Unavailable MYRON, DR LEDBETTER Primary Care Unavailable NEEL ., KIMBERLEE Attending Unavailable NEEL ., KIMBERLEE Admitting Unavailable Evan GREGORY Attending Unavailable Evan GREGORY Attending Unavailable CEFERINO VILLANUEVA Referring Unavailable Evan GREGORY Attending Unavailable Park Perdomo MD Primary Care Provider Nia DIRECTOR DESIGN, Idalmis Zapata Unavailable Franklin Sanchez MD Unavailable Myron GORE, Kalyani Grande Primary Care Provider MYRON, KALYANI Grande Referring Unavailable MYRON, KALYANI F Primary Care Unavailable MYRON, KALYANI F Referring Unavailable MYRON, KALYANI F Primary Care Unavailable MYRON, KALYANI F Referring Unavailable MYORN, KALYANI Grande Primary Care Unavailable STEPANIC JR, NEHA Smith Referring Unavailabl e [...] e MYRON, KALYANI Grande Primary Care Unavailable Logan GARZA, Milad Mccurdy Attending Unavailabl nick Ford II, Milad Mccurdy Admitting Unavailleonardo Ford MD, Milad Mccurdy Attending Provider [phone] Nia DIRECTOR DESIGN, Idalmis Zapata Unavailable KIMBERLEE JANE Attending Unavailable STEPANIC, JRClaudette, NEHA Smith Attending Unavaila ble STEPANIC JRClaudette, NEHA Smith Referring Unavaila ble STEPANIC, JRClaudette, NEHA Smith Attending Unavaila ble STEPANIC, JRClaudette, NEHA Smith Attending Unavaila ble STIVEN ENRIQUEZ Attending Unavailable KIMBERLEE JANE Attending Unavailable Allergies Allergy Classification Reported Allergen(s) Allergy Type Date of Onset Reaction(s) Facility (5 sources) Acetaminophen / HYDROcodone; 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: [acetaminophen-hy drocodone] Drug Allergy 1 Eruption of skin (disorder), Dizziness, Nausea [facility] (3 sources) Doxycycline; 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: [doxycycline] Drug Allergy Unknown [facility] (20 sources) Tetracycline; 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: [tetracycline] Drug Allergy 8 Unknown, Diarrhea [facility] (1 source) Acetaminophen / HYDROcodone Drug Allergy [facility] Repository (1 source) Doxycycline Drug Allergy [facility] (1 source) Tetracycline Drug Allergy [facility] Repository (13 sources) Acetaminophen / HYDROcodone; 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: [HYDROCODONE-ACET AMINOPHEN] Drug Allergy 1 GI intolerance, Dizziness, Nausea Only [facility] (4 sources) Tetracyclines; 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: [TETRACYCLINES] Propensity to adverse reactions to drug 8 Diarrhea, Vomiting [facility] (2 sources) Acetaminophen Drug Allergy 5 Nausea [facility] Repository (2 sources) HYDROcodone Drug Allergy 5 [facility] Repository Medications Current Medications Medication Drug Class(es) Dates Sig (Normalized) Sig (Original) acetaminophen 325 mg / oxyCODONE hydrochloride 5 mg oral tablet (2 sources) Opioid Agonist Start: 10-10-2022 acetaminophen-oxyc odone 325 mg-5 mg Tab Refill(s) 0 Start Date: 10/10/22 Status: Ordered [id number] 200 actuat albuterol 0.09 mg/actuat metered dose [...] 09/04/2023 Active azithromycin 250 mg oral tablet (19 sources) Macrolide Antimicrobial Start: 03-02-2025 azithromycin (Zithromax Z-Derek) 250 MG tablet Indications: Sinus congestion As directed 6 tablet 03/02/2025 Active Start: 04-02-2024 End: 09-14-2024 azithromycin (Zithromax Z-Pa k) 250 MG tablet [...] 02/14/2023 Active ibuprofen 600 mg oral tablet (8 sources) Nonsteroidal Anti-inflammatory Drug Start: 03-11-2025 End: [...] 30 tablet 3 05/05/2024 08/03/2024 Active Start: 07-01-2023 take 1 tablet by sonido th once [...] by mouth daily with breakfast. Active methylPREDNISolone (19 sources) Corticosteroid Start: 09-21-2024 methylPREDNISo lone (Medrol [...] 12/23/2023 Active minoxidil 10 mg oral tablet (5 sources) Arteriolar Vasodilator Start: 01-05-2025 End: 01-05-2026 [...] 30 tablet 0 09/04/2023 10/04/2023 Active Pnv #[id number] Acid-Omega3 30 mg iron-10 mg iron-1 mg [...] Vit-Fe Fumarate-FA ( Vitamins) 28-0.8 MG tablet (5 sources) Start: 01-05-2025 End: 01-05-2026 take 1 tablet by mouth once daily Vit-Fe Fumarate-FA ( Vitamins) 28-0.8 MG tablet Indications: Hair thinning Take 1 tablet by mouth Daily 30 tablet 01/05/2025 01/05/2026 Active 12 hr pseudoephedrine hydrochloride 120 mg extended release oral tablet (5 sources) alpha-Adrenergic Agonist Start: 02-21-2025 End: 02-21-2026 [...] Status: Ordered SUMAtriptan 25 mg oral tablet (5 sources) Serotonin-1b and Serotonin-1d Receptor Agonist Start: [...] 02-03-2023 Chronic Other aftercare (1 source) Other terminal 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; 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: [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 THERAPY] Onset: 10-07-2022 Episodic Other [...] Chronic Other nutritional; endocrine; and metabolic disorders (5 sources) Insulin resistance; 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: [Insulin resistance] Onset: [...] status] Onset: 08-26-2022 Episodic Other skin disorders (5 sources) Loss of hair; 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: [Nonscarring hair [...] Onset: 04-14-2017 04-14-2017 Episodic Urinary tract infections (19 sources) Urinary tract infectious disease; 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: [Urinary tract infection, site not specified] Onset: 08-17-2024 08-17-2024 Episodic Results Test Name Value Interpretation Reference Range Facility IGP,APTIMA HPV,AGE GDLNon AGE GDLN ACOG TESTING Note . [facility] Comment on above: TESTS RESULT FLAG UN ITS REF RANGE LAB Clinician Provided Cytology Information Source.............Cervix;Endocervix No. of containers..01 ThinPrep Vial Age Algo ACOG Evelin... FLAG LEGEND: L-Low Normal,H-High Normal,LL-Alert Low,HH-Alert High <-Panic Low,>-Panic High,A-Abnormal,AA-Critical Abnormal Performed at: 01 =G [address] [address] Elif Payne MD, HPV APTIMA Negative Negative [facility] Comment on above: This nucleic acid am plification test detects fourteen high- risk HPV types (16,18,31,33,35,39,45,51,52,56,58,59,66,68) without differentiation. Performed at: =[address] [id number] Resource Analyst: Elif Payne MD, Phone: [phone] Performed at: [address] [id number] Resource Analyst: Elif Payne MD, Phone: [phone] IGP, APTIMA HPV, RFX 16/18,[address] [facility] Comment on above: TESTS RESULT FLAG UN ITS REF RANGE LAB DIAGNOSIS: 02 NEGATIVE FOR INTRAEPITHELIAL LESION OR MALIGNANCY. Specimen adequacy: 02 Satisfactory for evaluation. Endocervical and/or squamous metaplastic cells (endocervical component) are present. Performed by: 02 Kimberly Sánchez, Loans Officer (ASC) . 02 Note: Note 02 The Pap smear is a screening test designed to aid in the detection of premalignant and malignant conditions of the uterine cervix. It is not a diagnostic procedure and should not be used as the sole means of detecting cervical cancer. Both false-positive and false-negative reports do occur. Test Methodology: Note 02 This liquid based ThinPrep(R) pap test was screened with the use of an image guided system. HPV Genotype Reflex Note 02 Criteria not met, HPV Genotype not performed. FLAG LEGEND: L-Low Normal,H-High Normal,LL-Alert Low,HH-Alert High <-Panic Low,>-Panic High,A-Abnormal,AA-Critical Abnormal Performed at: 02 [address] [facility] [address] [place] [address] Elif Payne MD, BRUSH-SPATULA CERVIX ENDOCERVIX [facility] XR knee LT 3V - NOT FOR ER U Liset 12-10-2024 XR knee LT 3V - NOT FOR ER USE [facility] [address] [place] [address] XRay Report Signed Patient: Jenn Benson MR#: [id number] 70 : 1975 Acct:[id number] Age/Sex: 49 / F ADM Date: 12/10/24 [place] [facility] [place] Type: [facility] Attending Dr: Milad Ford II, MD Copies to: Milad Ford MD Ordering Provider: Milad Ford MD Date of Service: 12/10/24 XR/XR pelvis 1-2V: Z96.652 - Presence of left artificial knee joint ([id number]) XR/XR knee LT 3V - NOT FOR [...] Jr., Mik 12/10/2024 10:16 AM Dictation Location: [place] [address] Transcribed By: [facility] 12/10/24 1016 Dictated By: Charlie West Jr, DO 12/10/24 1016 Signed By: 12/10/24 1016 Normal [facility] CBC AND AUTO DIFFon 11-13-19 25 ABSOLUTE BASOPHIL 0.1 X10E9/L Normal 0.0-0.2 [facility] Comment on above: Performed By: #### C FESTUS, 1987-11, HA1C, CMP, 81470-2, 3015-3, 2092-09 #### [facility] ([id number]) [address] [place] [address] ABSOLUTE NEUTROPHIL 4.1 X10E9/L Normal 1.5-6.6 [facility] Comment on above: Performed By: #### C FESTUS, 1987-11, HA1C, CMP, 40576-3, 3015-09, 2093-3 #### [facility] ([id number]) [address] [place] [address] Basophils/100 WBC (Bld) 0.9 % Normal [facility] Comment on above: Performed By: #### C FESTUS, 1987-11, HA1C, CMP, 26509-5, 3015-09, 2092-09 #### [facility] ([id number]) [address] [place] [address] Eosinophils (Bld) [#/Vol] 0.1 10*3/uL Normal 0.0-0.4 [facility] Comment on above: Performed By: #### C FESTUS, 1987-11, HA1C, CMP, 37689-5, 3015-09, 2092-09 #### [facility] ([id number]) [address], [address] [place] [address] Eosinophils/100 WBC (Bld) 2.1 % Normal [facility] Comment on above: Performed By: #### C FESTUS, 1987-11, HA1C, CMP, 38128-5, 3015-09, 2092-09 #### [facility] ([id number]) [address], [address] [place] [address] Erythrocyte distribution width (RBC) [Ratio] 13.4 % Normal 11.5-15.0 [facility] Comment on above: Performed By: #### Sarah MORTENSEN, 1986-11, HA1C, CMP, 35524-6, 3015-09, 2092-09 #### [facility] ([id number]) [address] [place] [address] Hematocrit (Bld) [Volume fraction] 37.9 % Normal 35-47 [facility] Comment on above: Performed By: #### C FESTUS, 1987-11, HA1C, CMP, 20258-0, 3015-09, 2092-09 #### [facility] ([id number]) [address] [address] [place] [address] Hemoglobin (Bld) [Mass/Vol] 13.2 g/dL Normal 11.7-15.5 [facility] Comment on above: Performed By: #### C FESTUS, 1987-11, HA1C, CMP, 26823-0, 3, 2092-09 #### [facility] ([id number]) [address] [facility] [address] [place] [address] Lymphocytes (Bld) [#/Vol] 1.8 10*3/uL Normal 1.0-3.5 [facility] Comment on above: Performed By: #### Sarah MORTENSEN, 1986-11, HA1C, CMP, 59723-8, 3015-09, 2092-09 #### [facility] ([id number]) [address] [place] [address] Lymphocytes/100 WBC (Bld) 27.2 % Normal [facility] Comment on above: Performed By: #### Sarah MORTENSEN, 1986-11, HA1C, CMP, 83433-2, 3015-09, 2092-09 #### [facility] ([id number]) [address] [place] [address] MCH (RBC) [Entitic mass] 30.5 pg Normal 27-34 [facility] Comment on above: Performed By: #### Sarah MORTENSEN, 1986-11, HA1C, CMP, 40087-9, 3015-09, 2092-09 #### [facility] ([id number]) [address] [place] [address] MCHC (RBC) [Mass/Vol] 34.7 g/dL Normal 32-36 [facility] Comment on above: Performed By: #### Sarah MORTENSEN, 1986-11, HA1C, CMP, 72222-6, 3015-09, 2092-09 #### [facility] ([id number]) [address] [place] [address] MCV (RBC) [Entitic vol] 88 fL Normal 80-100 [facility] Comment on above: Performed By: #### Sarah MORTENSEN, 1986-11, HA1C, CMP, 33077-0, 3015-09, 2092-09 #### [facility] ([id number]) [address], [address] [place] [address] Monocytes (Bld) [#/Vol] 0.5 10*3/uL Normal 0-0.9 [facility] Comment on above: Performed By: #### Sarah MORTENSEN, 1986-11, HA1C, CMP, 23278-7, 3015-09, 2092-09 #### [facility] ([id number]) [address] [place] [address] Monocytes/100 WBC (Bld) 8.0 % Normal [facility] Comment on above: Performed By: #### Sarah MORTENSEN, 1986-11, HA1C, CMP, 77573-7, 3015-09, 2092-09 #### [facility] ([id number]) [address], [facility] [address] [place] [address] Neutrophils/100 WBC (Bld) 61.8 % Normal [facility] Comment on above: Performed By: #### Sarah MORTENSEN, 1986-11, HA1C, CMP, 88202-5, 3015-09, 2092-09 #### [facility] ([id number]) [address] [place] [address] Platelet mean volume (Bld) [Entitic vol] 9.3 fL Normal 7-12 [facility] Comment on above: Performed By: #### Sarah MORTENSEN, 1986-11, HA1C, CMP, 14069-4, 3015-09, 2092-09 #### [facility] ([id number]) [address] [place] [address] Platelets (Bld) [#/Vol] 298 10*3/uL Normal 150-450 [facility] Comment on above: Performed By: #### C FESTUS, 1987-11, HA1C, CMP, 29415-2, 3015-3, 2092-09 #### [facility] ([id number]) [address], [address] [place] [address] RBC COUNT 4.31 X10E12/L Normal 3.80-5.20 [facility] Comment on above: Performed By: #### C FESTUS, 1987-11, HA1C, CMP, 43309-4, 3015-3, 2092-09 #### [facility] ([id number]) [address] [facility] [address] [place] [address] WBC (Bld) [#/Vol] 6.6 10*3/uL Normal 4.0-11.0 [facility] Comment on above: Performed By: #### C FESTUS, 1987-11, HA1C, CMP, 59273-2, 3, 2092-09 #### [facility] ([id number]) [address], [address] [place] [address] CBC W Auto Differential pane l (Bld)on 11-12-2024 ABSOLUTE BASOPHIL 0.1 [facility] Comment on above: PERFORMED AT [facility] [address],[place] [address] The copy-to physician of this order is NEHA Bowles ; , ; Basophils/100 WBC (Bld) 0.9 % [facility] Eosinophils (Bld) [#/Vol] 0.1 10*3/uL [facility] Eosinophils/100 WBC (Bld) 2.1 % [facility] Erythrocyte distribution width (RBC) [Ratio] 13.4 % 11.5 - 15.0 % [facility] Hematocrit (Bld) [Volume fraction] 37.9 % 35 - 47 % [facility] Hemoglobin (Bld) [Mass/Vol] 13.2 g/dL 11.7 - 15.5 g/dL [facility] Lymphocytes (Bld) [#/Vol] 1.8 10*3/uL [facility] Lymphocytes/100 WBC (Bld) 27.2 % [facility] MCH (RBC) [Entitic mass] 30.5 pg 27 - [address] [facility] MCHC (RBC) [Mass/Vol] 34.7 g/dL 32 - 36 g/dL [facility] MCV (RBC) [Entitic vol] 88 fL 80 - [address] [facility] Monocytes (Bld) [#/Vol] 0.5 10*3/uL [facility] Monocytes/100 WBC (Bld) 8 % [facility] Neutrophils (Bld) [#/Vol] 4.1 10*3/uL [facility] Neutrophils/100 WBC (Bld) 61.8 % [facility] Platelet mean volume (Bld) [Entitic vol] 9.3 fL 7 - [address] [facility] Platelets (Bld) [#/Vol] 298 10*3/uL [facility] RBC (Bld) [#/Vol] 4.31 10*6/uL [facility] WBC corrected for nucl RBC Auto (Bld) [#/Vol] 6.6 [facility] CHOLESTEROLon 11-12-2024 Cholesterol [Mass/Vol] 246 mg/dL High 150-200 [facility] Comment on above: Performed By: #### C FESTUS, 1987-11, HA1C, CMP, 27294-8, 3015-09, 2092-09 #### [facility] ([id number]) [address], [address] [place] [address] COMPREHENSIVE METABOLIC PANE Colt 11-12-2024 Albumin [Mass/Vol] 4.5 g/dL Normal 3.2-5.3 [facility] Comment on above: Performed By: #### C BCA, 1987-11, HA1C, CMP, 75699-1, 3015-09, 2092-09 #### [facility] ([id number]) [address], [address] [place] [address] ALP [Catalytic activity/Vol] 70 U/L Normal 39-130 [facility] Comment on above: Performed By: #### C BCA, 1987-11, HA1C, CMP, 63853-7, 3015-3, 2092-09 #### [facility] ([id number]) [address], [address] [place] [address] ALT [Catalytic activity/Vol] 15 U/L Normal 0-31 [facility] Comment on above: Performed By: #### C BCA, 1987-11, HA1C, CMP, 11065-1, 3015-3, 2092-09 #### [facility] ([id number]) [address] [place] [address] Anion gap [Moles/Vol] 10 mmol/L Normal 5-15 [facility] Comment on above: Performed By: #### C BCA, 1987-11, HA1C, CMP, 58751-3, 3, 2092-09 #### [facility] ([id number]) [address] [place] [address] AST [Catalytic activity/Vol] 14 U/L Normal 0-41 [facility] Comment on above: Performed By: #### C BCA, 1987-11, HA1C, CMP, 55404-8, 3015-09, 2092-09 #### [facility] ([id number]) [address], [address] [place] [address] Bilirubin [Mass/Vol] 0.5 mg/dL Normal 0.3-1.2 [facility] Comment on above: Performed By: #### C BCA, 1987-11, HA1C, CMP, 66575-6, 3015-3, 2092-09 #### [facility] ([id number]) [address], [address] [place] [address] Calcium [Mass/Vol] 8.9 mg/dL Normal 8.5-10.5 [facility] Comment on above: Performed By: #### C BCA, 1987-11, HA1C, CMP, 07298-1, 3, 2092-09 #### [facility] ([id number]) [address], [address] [place] [address] Chloride [Moles/Vol] 106 mmol/L Normal 98-109 [facility] Comment on above: Performed By: #### C BCA, 1987-11, HA1C, CMP, 04222-9, 3015-09, 2092-09 #### [facility] ([id number]) [address], [address] [place] [address] CO2 [Moles/Vol] 25 mmol/L Normal 22-32 [facility] Comment on above: Performed By: #### C BCA, 1987-11, HA1C, CMP, 50940-3, 3015-09, 2092-09 #### [facility] ([id number]) [address], [address] [place] [address] Creatinine [Mass/Vol] 0.61 mg/dL Normal 0.40-1.00 [facility] Comment on above: Result Comment: METH OD TRACEABLE TO IDMS STANDARD Performed By: #### C BCA, 1987-11, HA1C, CMP, 32357-5, 3015-09, 2092-09 #### [facility] ([id number]) [address] [place] [address] eGFR (CKD-EPI) NON-RACE DEPENDENT >90 Normal >59 [facility] Comment on above: Result Comment: Reported eGFR is based on the CKD-EPI 2020 equation that does not use a race coefficient. Performed By: #### C BCA, 1987-11, HA1C, CMP, 63764-0, 3015-09, 2092-09 #### [facility] ([id number]) [address], [address] [place] [address] Glucose [Mass/Vol] 99 mg/dL Normal 65-99 [facility] Comment on above: Performed By: #### C BCA, 1987-11, HA1C, CMP, 86855-4, 3015-09, 2092-09 #### [facility] ([id number]) [address], [address] [place] [address] Potassium [Moles/Vol] 4.1 mmol/L Normal 3.5-5.0 [facility] Comment on above: Performed By: #### C BCA, 1987-11, HA1C, CMP, 70766-2, 3015-09, 2092-09 #### [facility] ([id number]) [address], [address] [place] [address] Protein [Mass/Vol] 7.0 g/dL Normal 6.0-8.0 [facility] Comment on above: Performed By: #### C BCA, 1987-11, HA1C, CMP, 63236-3, 3015-09, 2092-09 #### [facility] ([id number]) [address] [place] [address] Sodium [Moles/Vol] 141 mmol/L Normal 134-146 [facility] Comment on above: Performed By: #### C BCA, 1987-11, HA1C, CMP, 81116-2, 3015-09, 2092-09 #### [facility] ([id number]) [address] [place] [address] Urea nitrogen [Mass/Vol] 10 mg/dL Normal 5-23 [facility] Comment on above: Performed By: #### C BCA, 1987-11, HA1C, CMP, 28567-8, 3015-09, 2092-09 #### [facility] ([id number]) [address], [address] [place] [address] CRP [Mass/Vol]on 11-12-2024 C REACTIVE PROTEIN 0.3 mg/dL Normal 0.000-0.744 [facility] Comment on above: Performed By: #### C BCA, 1987-11, HA1C, CMP, 51395-2, 3015-09, 2092-09 #### [facility] ([id number]) [address] [place] [address] ESR Photometric method (Bld) [Velocity]on 11-12-2024 ESR, ERYTHROCYTE SEDIMENTATION RATE 1 mm/h Normal 0-20 [facility] Comment on above: Performed By: #### C BCA, 1987-11, HA1C, CMP, 80529-6, 3015-09, 2092-09 #### [facility] ([id number]) [address] [facility] [address] [place] [address] HGB A1C (GLYCO-HGB)on 2024 Glucose [Mass/Vol] 103 mg/dL Normal [facility] Comment on above: Performed By: #### Sarah MORTENSEN, 1986-11, HA1C, CMP, 57900-4, 3015-09, 2092-09 #### [facility] ([id number]) [address] [place] [address] HbA1c (Bld) [Mass fraction] 5.2 % Normal 4.4-5.6 [facility] Comment on above: Result Comment: NOTE ADA Guidelines Result HgbA1c Normal : less than 5.7 % Prediabetes : 5.7 % to 6.4 % Diabetes : > 6.4 % Use with caution in patients with abnormal hemoglobin variants as the half-life of red blood cells and in vivo glycation rates are affected. Performed By: #### C FESTUS, 1986-11, HA1C, CMP, 14527-0, 3015-09, 2092-09 #### [facility] ([id number]) [address] [address] TSH Qnon 11-12-2024 TSH 1.83 uIU/mL Normal 0.49-4.67 [facility] Comment on above: Performed By: #### Sarah BCA, 1986-11, HA1C, CMP, 81646-3, 3016-3, 2093-3 #### [facility] ([id number]) [address] [facility] [address] [place] [address] CBC AUTO DIFFon 11-15-2022 BASO # 0.1 103/ul Normal 0.0-0.1 [facility] Comment on above: Performed By: #### C BC #### [facility] [address] [place] [address] Dr. Ricarda Chiang Basophils/100 WBC (Bld) 0.8 % Normal 0.2-2.0 [facility] Comment on above: Performed By: #### C BC #### [facility] [address] [place] [address] Dr. Ricarda Chiang EO # 0.1 103/ul Normal 0.0-0.7 [facility] Comment on above: Performed By: #### C BC #### [facility] [address] [place] [address] Dr. Ricarda Chiang Eosinophils/100 WBC (Bld) 1.4 % Normal 0.9-7.0 [facility] Comment on above: Performed By: #### C BC #### [facility] [address] [place] [address] Dr. Ricarda Chiang Erythrocyte distribution width (RBC) [Ratio] 12.7 % Normal 11.0-15.0 [facility] Comment on above: Performed By: #### C BC #### [facility] [address] [place] [address] Dr. Ricarda Chiang Hematocrit (Bld) [Volume fraction] 38.3 % Normal 36.0-48.0 [facility] Comment on above: Performed By: #### C BC #### [facility] [address] [place] [address] Dr. Ricarda Chiang Hemoglobin (Bld) [Mass/Vol] 12.4 g/dL Normal 12.0-16.0 [facility] Comment on above: Performed By: #### C BC #### [facility] [address] [place] [address] Dr. Ricarda Chiang IG # 0.03 10e3/ul Normal 0.00-0.03 [facility] Comment on above: Performed By: #### C BC #### [facility] [address] [place] [address] Dr. Ricarda Chiang IG % 0.5 % Normal 0.0-0.5 [facility] Comment on above: Performed By: #### C BC #### [facility] [address] [place] [address] Dr. Ricarda Chiang LYMPH # 1.5 103/ul Normal 1.2-3.8 [facility] Comment on above: Performed By: #### C BC #### [facility] [address] [place] [address] Dr. Ricarda Chiang Lymphocytes/100 WBC (Bld) 23.2 % Normal 20.5-60.0 [facility] Comment on above: Performed By: #### C BC #### [facility] [address] [place] [address] Dr. Ricarda Chiang MANUAL DIFF REQ NO Normal [facility] Comment on above: Performed By: #### C BC #### [facility] [address] [place] [address] Dr. Ricarda Chiang MCH (RBC) [Entitic mass] 27.8 pg Normal 26.7-34.0 [facility] Comment on above: Performed By: #### C BC #### [facility] [address] [place] [address] Dr. Ricarda Chiang MCHC (RBC) [Mass/Vol] 32.4 g/dL Normal 29.9-35.2 [facility] Comment on above: Performed By: #### C BC #### [facility] [address] [place] [address] Dr. Ricarda Chiang MCV (RBC) [Entitic vol] 85.9 fL Normal 81.0-99.0 [facility] Comment on above: Performed By: #### C BC #### [facility] [address] [place] [address] Dr. Ricarda Chiang MONO # 0.5 103/ul Normal 0.3-0.8 [facility] Comment on above: Performed By: #### C BC #### [facility] [address] [place] [address] Dr. Ricarda Chiang Monocytes/100 WBC (Bld) 7.5 % Normal 1.7-12.0 [facility] Comment on above: Performed By: #### C BC #### [facility] [address] [place] [address] Dr. Ricarda Chiang NEUT # 4.3 103/ul Normal 1.4-6.5 [facility] Comment on above: Performed By: #### C BC #### [facility] [address] [place] [address] Dr. Ricarda Chiang Neutrophils/100 WBC (Bld) 66.6 % Normal 43.0-75.0 [facility] Comment on above: Performed By: #### C BC #### [facility] [address] [place] [address] Dr. Ricarda Chiang Platelet mean volume (Bld) [Entitic vol] 10.3 fL Normal 9.5-13.5 [facility] Comment on above: Performed By: #### C BC #### [facility] [address] [place] [address] Dr. Ricarda Chiang PLT 320 103/ul Normal 150-450 [facility] Comment on above: Performed By: #### C BC #### [facility] [address] [place] [address] Dr. Ricarda Chiang RBC 4.46 106/ul Normal 4.20-5.40 [facility] Comment on above: Performed By: #### C BC #### [facility] [address] [place] [address] Dr. Ricarda Chiang WBC 6.4 103/ul Normal 4.0-11.0 [facility] Comment on above: Performed By: #### C BC #### [facility] [address] [place] [address] Dr. Ricarda Chiang PREG QUANT HCGon 11-15-2022 HCG QUANT <1 Normal [facility] Comment on above: Performed By: #### F T4 #### [facility] [address] [id number] Ricarda Chiang HCG RANGE SEE BELOW [facility] Comment on above: Result Comment: 5-50 0.2-1 WEEK 50-500 1-2 WEEKS 100-5,000 2-3 WEEKS 500-10,000 3-4 WEEKS 1,000-50,000 4-5 WEEKS 10,000-100,000 5-6 WEEKS 15,000-200,000 6-8 WEEKS 10,000-100,000 2-3 MONTHS Performed By: #### F T4 #### [facility] [address] [address] [address] Ricarda Chiang Provider Letteron 10-30-2022 Provider Letter (Inserted Image. Gina ble to display) October 30, 2022 [place] [address] JENN BENSON 1975 Dear Ms. Benson , We have been trying to reach you with no success. It is important that you return our call regarding the concern of blood in the urine upon receiving this letter. Also, at the time of your call, please provide us with your current information. Please call our office at [phone]. Thank you for your prompt attention to this matter. Sincerely, [facility] [address] [place] [id number] Normal [facility] ED Note-Physicianon 10-23-19 ED Note-Physician [id number] D:127 Normal [facility] RAD - CT Reporton 10-22-2022 RAD - CT Report [id number] D:127 Normal [facility] RAD - Ultrasound Reporton RAD - Ultrasound Report [id number] D:127 Normal [facility] CALCULI, URINARYon 3 2,8 Dihydroxyadenine Normal [facility] Comment on above: Performed By: #### C ALCULI #### [facility] [address] [address] [address] Ricarda Chiang Ammonium Acid Urate Normal [facility] Comment on above: Performed By: #### C ALCULI #### [facility] [address] [address] [address] Ricarda Chiang Bilirubin Ql (U) Normal [facility] Comment on above: Performed By: #### C ALCULI #### [facility] [address] [address] [address] Ricarda Chiang Ca Oxalate Dihydrate 40 % [facility] Comment on above: Performed By: #### C ALCULI #### [facility] [address] [address] [address] Ricarda Chiang CaHPO4 (Brushite) [facility] Comment on above: Performed By: #### C ALCULI #### [facility] [address] [address] [address] Ricarda Chiang Calcium Bilirubinate [facility] Comment on above: Performed By: #### C ALCULI #### [facility] [address] [address] [address] Ricarda Chiang Calcium Carbonate [facility] Comment on above: Performed By: #### C ALCULI #### [facility] [address] [address] [address] Ricarda Chiang Calcium Oxalate Monohydrate 60 % [facility] Comment on above: Performed By: #### C ALCULI #### [facility] [address] [address] [address] Ricarda Chiang Calcium Palmitate [facility] Comment on above: Performed By: #### C ALCULI #### [facility] [address] [address] [address] Ricarda Chiang Calcium Phosphate [facility] Comment on above: Performed By: #### C ALCULI #### [facility] [address] [address] [address] Ricarda Chiang Calcium Stearate [facility] Comment on above: Performed By: #### C ALCULI #### [facility] [address] [address] [address] Ricarda Chiang Carbonate Apatite Normal [facility] Comment on above: Performed By: #### C ALCULI #### [facility] [address] [address] [address] Ricarda Chiang Cellular Material [facility] Comment on above: Performed By: #### C ALCULI #### [facility] [address] [address] [address] Cholesterol [facility] Comment on above: Performed By: #### C ALCULI #### [facility] [address] [address] [address] Ricarda Chiang Color (U) Brown [facility] Comment on above: Performed By: #### C ALCULI #### [facility] [address] [address] [address] Ricarda Chi[address] Comment [facility] Comment on above: Performed By: #### C ALCULI #### [facility] [address] [address] [address] Ricarda Chiang Comment Comment [facility] Comment on above: Result Comment: Calc ulus received wet. Wet calculi must be dried before analysis, which delays reporting of results. Leaving calculi wet (such as water, saline, blood, urine) may lead to changes in composition. Performed By: #### C ALCULI #### [facility] [address] [place] [address] Dr. Ricarda Chiang Comment: Comment Normal [facility] Comment on above: Result Comment: Waldemar larkin questions regarding Calculi Analysis contact [facility] at: [phone]. Performed By: #### C ALCULI #### [facility] [address] [address] [address] Ricarda Chiang Composition Comment [facility] Comment on above: Result Comment: Perc entage (Represents the % composition) Performed By: #### C ALCULI #### [facility] [address] [address] [address] Cystine [facility] Comment on above: Performed By: #### C ALCULI #### [facility] [address] [address] [address] Ricarda Chiang Disclaimer: Comment Normal [facility] Comment on above: Result Comment: This test was developed and its performance characteristics determined by [employer]. It has not been cleared or approved by the Food and Drug Administration. Performed By: #### C ALCULI #### [facility] [address] [address] [address] Ricarda Chiang Dried Blood Normal [facility] Comment on above: Performed By: #### C ALCULI #### [facility] [address] [place] [address] Dr. Ricarda Chiang Drug or Metabolite Normal [facility] Comment on above: Performed By: #### C ALCULI #### [facility] [address] [place] [address] Dr. Ricarda Chiang Hydroxyapatite Normal [facility] Comment on above: Performed By: #### C ALCULI #### [facility] [address] [place] [address] Dr. Ricarda Chiang Mg NH4 PO4 (Struvite) [facility] Comment on above: Performed By: #### C ALCULI #### [facility] [address] [place] [address] Dr. Ricarda Chiang MgHPO4 (Newberyite) Normal [facility] Comment on above: Performed By: #### C ALCULI #### [facility] [address] [place] [address] Dr. Ricarda Chiang Other component(s) Normal [facility] Comment on above: Performed By: #### C ALCULI #### [facility] [address] [place] [address] Dr. Ricarda Chiang PDF . Normal [facility] Comment on above: Performed By: #### C ALCULI #### [facility] [address] [place] [address] Dr. Ricarda Chiang Photo Comment Normal [facility] Comment on above: Result Comment: Phot ograph will follow under a separate cover Performed By: #### C ALCULI #### [facility] [address] [place] [address] Dr. Ricarda Chiang Please note: Comment Normal [facility] Comment on above: Result Comment: Calc michael report will follow via computer, mail or draw frame runner delivery. Performed By: #### C ALCULI #### [facility] [address] [address] [address] Ricarda Chiang Size 6x4 Normal [facility] Comment on above: Result Comment: Sing le piece received. Performed By: #### C ALCULI #### [facility] [address] [address] [address] Ricarda Chiang Sodium Acid Urate [facility] Comment on above: Performed By: #### C ALCULI #### [facility] [address] [address] [address] Ricarda Chiang Source Comment [facility] Comment on above: Result Comment: Righ t Ureter Performed By: #### C ALCULI #### [facility] [address] [place] [address] Dr. [address] [facility] Comment on above: Performed By: #### C ALCULI #### [facility] [address] [address] [address] Ricarda Chiang Uric Acid [facility] Comment on above: Performed By: #### C ALCULI #### [facility] [address] [address] [address] Ricarda Chiang Uric Acid Dihydrate Normal [facility] Comment on above: Performed By: #### C ALCULI #### [facility] [address] [address] [address] Ricarda Chiang Weight [address] [facility] Comment on above: Performed By: #### C ALCULI #### [facility] [address] [address] [address] Xanthine [facility] Comment on above: Performed By: #### C ALCULI #### [facility] [address] [place] [address] Dr. Ricarda Chiang Operative Reporton 3 Operative Report [id number] :127 Normal [facility] Ambulatory Visit Summaryon 0 10-11-2022 Ambulatory Visit Summary JENN BENSON :1975 Visit Date:10/11/2022 Ambulatory Visit Instructions Your Diagnosis Ureteral stone Tests Performed Urnls Dip Stick Auto w/o Microscopy POC 96209 Your Care Team Attending Physician - BRI GORE, Evan Gutierrez Primary Care Physician - KALYANI SANCHES MD Referring Physician - CEFERINO MOURA This Is [...] with BRI GORE, DAPHNE Melendez When: Where: [address] [place] [address]- Medications What How Much When Instructions Unchanged [...] Urnls Dip Stick Auto w/o Microscopy POC 91592 (10/11/2022) Bilirubin Urine Dipstick - Negative Blood Urine Dipstick - 3+ Large Glucose Urine Dipstick - Negative Ketones Urine Dipstick - Negative Leukocytes Urine Dipstick - Negative Nitrite Urine Dipstick - Negative Protein Urine Dipstick - 1+ (30 mg/dl) Specific [place] Urine Dipstick - >=1.030 Urine Appearance Urine [...] belly, ri (more content not included)... Normal [facility] Consent for Procedure/Surger yon 10-11-2022 Consent for Procedure/Surgery [id number] :127 Normal [facility] PREG HCG QUALon 10-11-2022 , QUAL Negative Normal NEGATIVE [facility] Comment on above: Performed By: #### F T4 #### [facility] [address] [place] [address] Dr. Ricarda Chiang Patient Educationon 10-12-19 23 [...] these instructions at home: Medicines ? Take uyur-yzq-gezugum and prescription medicines only as told by [...] 12/30/2008 Document Revised: 11/30/2019 Document Reviewed: 11/30/2019 Elsevier Patient Education ? 2019 [employer] [facility] Pre-Certification Formon Pre-Certification Form [id number] CD:127 Normal [facility] Urology Office/Clinic Noteon 10-11-2022 Urology Office/Clinic Note Chief Complaint new patient HPI Staff Pt is a new pt, never before seen in our office. (Verified on [employer]) Here today due to Kidney Stones. Pt went to [facility] on 09/30/22 due to Rt Flank Pain. CT a/p done 09/30/22 Pt then went to [facility] 10/03/22 due to Rt side pain. [...] patient due to kidney stones. Presented to [facility] 09/30/21 with sudden onset right flank pain. CT AP 09/30/21 right proximal ureterolithiasis 5 x 2 mm with hydronephrosis. Patient was to be admitted, but patient signed herself out due to needing to get home to her children. Per note, patient was unable to wait for urology any longer. Patient then presented to [facility] ER 10/03/22 for evaluation of right-sided [...] Urnls Dip Stick Auto w/o Microscopy POC 47885 Urology Procedure Order Follow-up With When Contact Information BRI GORE, [place] [address] [place] [address]- Additional Instructions: Schedule laser lithotripsy Patient Education Kidney Stones, [id number]-[id number] I, Marsha Shaw, personally scribed for Dr. Gregory on 10/11/2022 11:30:55. . Documentation recorded by the Marsha evans (more content not included)... Normal [facility] Comment on above: Result Comment: Elec tronically Signed By: Evan GREGORY MD\.br\Date and Time Signed: 10/11/22 11:38 EDT\.br\Electronically Co-Signed By: Marsha Shaw\.br\Date and Time Co-Signed: 10/11/22 11:31 EDT CBC AUTO DIFFon 10-10-2022 BASO # 0.1 103/ul Normal 0.0-0.1 [facility] Comment on above: Performed By: #### C BC #### [facility] [address] [place] [address] Dr. Ricarda Chiang Basophils/100 WBC (Bld) 0.7 % Normal 0.2-2.0 [facility] Comment on above: Performed By: #### C BC #### [facility] [address] [place] [address] Dr. Ricarda Chiang EO # 0.1 103/ul Normal 0.0-0.7 [facility] Comment on above: Performed By: #### C BC #### [facility] [address] [place] [address] Dr. Ricarda Chiang Eosinophils/100 WBC (Bld) 1.7 % Normal 0.9-7.0 [facility] Comment on above: Performed By: #### C BC #### [facility] [address] [place] [address] Dr. Ricarda Chiang Erythrocyte distribution width (RBC) [Ratio] 12.9 % Normal 11.0-15.0 [facility] Comment on above: Performed By: #### C BC #### [facility] [address] [place] [address] Dr. Ricarda Chiang Hematocrit (Bld) [Volume fraction] 37.0 % Normal 36.0-48.0 [facility] Comment on above: Performed By: #### C BC #### [facility] [address] [place] [address] Dr. Ricarda Chiang Hemoglobin (Bld) [Mass/Vol] 12.2 g/dL Normal 12.0-16.0 [facility] Comment on above: Performed By: #### C BC #### [facility] [address] [place] [address] Dr. Ricarda Chiang IG # 0.03 10e3/ul Normal 0.00-0.03 [facility] Comment on above: Performed By: #### C BC #### [facility] [address] [place] [address] Dr. Ricarda Chiang IG % 0.4 % Normal 0.0-0.5 [facility] Comment on above: Performed By: #### C BC #### [facility] [address] [place] [address] Dr. Ricarda Chiang LYMPH # 1.9 103/ul Normal 1.2-3.8 [facility] Comment on above: Performed By: #### C BC #### [facility] [address] [place] [address] Dr. Ricarda Chiang Lymphocytes/100 WBC (Bld) 25.2 % Normal 20.5-60.0 [facility] Comment on above: Performed By: #### C BC #### [facility] [address] [place] [address] Dr. Ricarda Chiang MANUAL DIFF REQ NO Normal [facility] Comment on above: Performed By: #### C BC #### [facility] [address] [place] [address] Dr. Ricarda Chiang MCH (RBC) [Entitic mass] 28.4 pg Normal 26.7-34.0 [facility] Comment on above: Performed By: #### C BC #### [facility] [address] [place] [address] Dr. Ricarda Chiang MCHC (RBC) [Mass/Vol] 33.0 g/dL Normal 29.9-35.2 [facility] Comment on above: Performed By: #### C BC #### [facility] [address] [place] [address] Dr. Ricarda Chiang MCV (RBC) [Entitic vol] 86.2 fL Normal 81.0-99.0 [facility] Comment on above: Performed By: #### C BC #### [facility] [address] [place] [address] Dr. Ricarda Chiang MONO # 0.6 103/ul Normal 0.3-0.8 [facility] Comment on above: Performed By: #### C BC #### [facility] [address] [place] [address] Dr. Ricarda Chiang Monocytes/100 WBC (Bld) 7.9 % Normal 1.7-12.0 [facility] Comment on above: Performed By: #### C BC #### [facility] [address] [place] [address] Dr. Ricarda Chiang NEUT # 4.8 103/ul Normal 1.4-6.5 [facility] Comment on above: Performed By: #### C BC #### [facility] [address] [place] [address] Dr. Ricarda Chiang Neutrophils/100 WBC (Bld) 64.1 % Normal 43.0-75.0 [facility] Comment on above: Performed By: #### C BC #### [facility] [address] [place] [address] Dr. Ricarda Chiang Platelet mean volume (Bld) [Entitic vol] 10.3 fL Normal 9.5-13.5 [facility] Comment on above: Performed By: #### C BC #### [facility] [address] [place] [address] Dr. Ricarda Chiang PLT 380 103/ul Normal 150-450 [facility] Comment on above: Performed By: #### C BC #### [facility] [address] [place] [address] Dr. Ricarda Chiang RBC 4.29 106/ul Normal 4.20-5.40 [facility] Comment on above: Performed By: #### C BC #### [facility] [address] [address] [address] Ricarda Chiang WBC 7.5 103/ul Normal 4.0-11.0 [facility] Comment on above: Performed By: #### C BC #### [facility] [address] [place] [address] Dr. Ricarda Chiang ED Note-Physicianon 10-11-19 23 ED Note-Physician [id number] :127 Normal [facility] FREE T4on 10-10-2022 Free T4 [Mass/Vol] 0.96 ng/dL Normal 0.76-1.46 [facility] Comment on above: Performed By: #### F T4 #### [facility] [address] [place] [address] Dr. Ricarda Chiang GLYCOHEMOGLOBIN A1Con 2022 ADA RECOMMENDATION SEE BELOW Normal [facility] Comment on above: Result Comment: ADA RECOMMENDED LIMIT 4.0 - 6.0 ADA THERAPEUTIC TARGET < 7.0 ACTION SUGGESTED > 7.0 Performed By: #### F T4 #### [facility] [address] [place] [address] Dr. Ricarda Chiang Glucose [Mass/Vol] 111 mg/dL Normal [facility] Comment on above: Performed By: #### F T4 #### [facility] [address] [place] [address] Dr. Ricarda Chiang HbA1c (Bld) [Mass fraction] 5.5 % Normal 4.5-6.2 [facility] Comment on above: Performed By: #### F T4 #### [facility] [address] [place] [address] Dr. Ricarda Chiang PREG QUANT HCGon 10-10-2022 HCG QUANT <1 Normal [facility] Comment on above: Performed By: #### T SH, PREGQNT #### [facility] [address] [place] [address] Dr. Ricarda Chiang HCG RANGE SEE BELOW Normal [facility] Comment on above: Result Comment: 5-50 0.2-1 WEEK 50-500 1-2 WEEKS 100-5,000 2-3 WEEKS 500-10,000 3-4 WEEKS 1,000-50,000 4-5 WEEKS 10,000-100,000 5-6 WEEKS 15,000-200,000 6-8 WEEKS 10,000-100,000 2-3 MONTHS Performed By: #### T SH, PREGQNT #### [facility] [address] [place] [address] Dr. Ricarda Chiang PROTIMEon 10-10-2022 INR Coag (PPP) [Relative time] {INR} Normal [facility] Comment on above: Performed By: #### P T, PTT #### [facility] [address] [place] [address] Dr. Ricarda Chiang INR GUIDELINES SEE BELOW Normal [facility] Comment on above: Result Comment: MIRTA RED INR: 2.0 - 3.0 CONDITIONS NOT LISTED BELOW 2.5 - 3.5 FOR PROSTHETIC HEART VALVE REPLACEMENT 2.5 - 3.5 RECURRENT THROMBOSIS Performed By: #### P T, PTT #### [facility] [address] [place] [address] Dr. Ricarda Chiang PT Coag (PPP) [Time] 9.8 s Normal 9.0-11.6 [facility] Comment on above: Performed By: #### P T, PTT #### [facility] [address] [place] [address] Dr. Ricarda Chiang PTTon 10-10-2022 aPTT Coag (Bld) [Time] 28.0 s Normal 22.3-36.2 [facility] Comment on above: Performed By: #### P T, PTT #### [facility] [address] [place] [address] Dr. Ricarad Chiang TSHon 10-10-2022 TSH 1.791 uIU/mL Normal 0.358-3.740 [facility] Comment on above: Performed By: #### T SH, PREGQNT #### [facility] [address] [place] [address] Dr. Ricarda Chiang CBC AUTO DIFFon 10-03-2022 BASO # 0.1 103/ul Normal 0.0-0.1 [facility] Comment on above: Performed By: #### F T4 #### [facility] [address] [address] [address] Ricarda Chiang Basophils/100 WBC (Bld) 0.6 % Normal 0.2-2.0 [facility] Comment on above: Performed By: #### F T4 #### [facility] [address] [address] [address] Ricarda Chiang EO # 0.1 103/ul Normal 0.0-0.7 [facility] Comment on above: Performed By: #### F T4 #### [facility] [address] [place] [address] Dr. Ricarda Chiang Eosinophils/100 WBC (Bld) 1.4 % Normal 0.9-7.0 [facility] Comment on above: Performed By: #### F T4 #### [facility] [address] [place] [address] Dr. Ricarda Chiang Erythrocyte distribution width (RBC) [Ratio] 13.2 % Normal 11.0-15.0 [facility] Comment on above: Performed By: #### F T4 #### [facility] [address] [place] [address] Dr. Ricarda Chiang Hematocrit (Bld) [Volume fraction] 33.0 % Critically low 36.0-48.0 [facility] Comment on above: Performed By: #### F T4 #### [facility] [address] [place] [address] Dr. Ricarda Chiang Hemoglobin (Bld) [Mass/Vol] 11.2 g/dL Critically low 12.0-16.0 [facility] Comment on above: Performed By: #### F T4 #### [facility] [address] [place] [address] Dr. Ricarda Chiang IG # 0.04 10e3/ul Critically high 0.00-0.03 [facility] Comment on above: Performed By: #### F T4 #### [facility] [address] [place] [address] Dr. Ricarda Chiang IG % 0.4 % Normal 0.0-0.5 [facility] Comment on above: Performed By: #### F T4 #### [facility] [address] [place] [address] Dr. Ricarda Chiang LYMPH # 2.3 103/ul Normal 1.2-3.8 [facility] Comment on above: Performed By: #### F T4 #### [facility] [address] [place] [address] Dr. Ricarda Chiang Lymphocytes/100 WBC (Bld) 24.4 % Normal 20.5-60.0 [facility] Comment on above: Performed By: #### F T4 #### [facility] [address] [place] [address] Dr. Ricarda Chiang MANUAL DIFF REQ NO Normal [facility] Comment on above: Performed By: #### F T4 #### [facility] [address] [place] [address] Dr. Ricarda Chiang MCH (RBC) [Entitic mass] 28.3 pg Normal 26.7-34.0 [facility] Comment on above: Performed By: #### F T4 #### [facility] [address] [place] [address] Dr. Ricarda Chiang MCHC (RBC) [Mass/Vol] 33.9 g/dL Normal 29.9-35.2 [facility] Comment on above: Performed By: #### F T4 #### [facility] [address] [place] [address] Dr. Ricarda Chiang MCV (RBC) [Entitic vol] 83.3 fL Normal 81.0-99.0 [facility] Comment on above: Performed By: #### F T4 #### [facility] [address] [place] [address] Dr. Ricarda Chiang MONO # 0.8 103/ul Normal 0.3-0.8 [facility] Comment on above: Performed By: #### F T4 #### [facility] [address] [place] [address] Dr. Ricarda Chiang Monocytes/100 WBC (Bld) 8.7 % Normal 1.7-12.0 [facility] Comment on above: Performed By: #### F T4 #### [facility] [address] [place] [address] Dr. Ricarda Chiang NEUT # 6.0 103/ul Normal 1.4-6.5 [facility] Comment on above: Performed By: #### F T4 #### [facility] [address] [place] [address] Dr. Ricarda Chiang Neutrophils/100 WBC (Bld) 64.5 % Normal 43.0-75.0 [facility] Comment on above: Performed By: #### F T4 #### [facility] [address] [place] [address] Dr. Ricarda Chiang Platelet mean volume (Bld) [Entitic vol] 10.4 fL Normal 9.5-13.5 [facility] Comment on above: Performed By: #### F T4 #### [facility] [address] [place] [address] Dr. Ricarda Chiang PLT 319 103/ul Normal 150-450 [facility] Comment on above: Performed By: #### F T4 #### [facility] [address] [place] [address] Dr. Ricarda Chiang RBC 3.96 106/ul Critically low 4.20-5.40 [facility] Comment on above: Performed By: #### F T4 #### [facility] [address] [place] [address] ABD/PELVIS WO CONon [...] PATRICIA CARSON Date: 2022-10-03 17:58 Normal [facility] ER URINE PROFILEon 3 Bilirubin Ql (U) Negative Normal NEGATIVE [facility] Comment on above: Performed By: #### TITO GUTIERREZ #### [facility] [address] [place] [address] Dr. Ricarda Chiang Clarity (U) CLEAR Normal CLEAR [facility] Comment on above: Performed By: #### TITO GUTIERREZ #### [facility] [address] [place] [address] Dr. Ricarda Chiang Color (U) YELLOW Normal YELLOW [facility] Comment on above: Performed By: #### TITO GUTIERREZ #### [facility] [address] [place] [address] Dr. Ricarda Chiang ERUJL A micrscopic examination will be performed if indicated. Normal [facility] Comment on above: Performed By: #### TITO GUTIERREZ #### [facility] [address] [place] [address] Dr. Ricarda Chiang Glucose Ql (U) Negative Normal NEGATIVE [facility] Comment on above: Performed By: #### Nick MIN UMICRO #### [facility] [address] [address] [address] Ricarda Chiang Hemoglobin Ql (U) LARGE Abnormal NEGATIVE [facility] Comment on above: Performed By: #### Nick MIN, UMICRO #### [facility] [address] [address] [address] Ricarda Chiang Ketones Ql (U) Negative Normal NEGATIVE [facility] Comment on above: Performed By: #### Nick MIN UMICRO #### [facility] [address] [place] [address] Dr. Ricarda Chiang LEUKOCYTES Negative Normal NEGATIVE [facility] Comment on above: Performed By: #### Nick MIN UMICRO #### [facility] [address] [place] [address] Dr. Ricarda Chiang Nitrite Ql (U) Negative Normal NEGATIVE [facility] Comment on above: Performed By: #### Nick MIN UMICRO #### [facility] [address] [place] [address] Dr. Ricarda Chiang pH (U) 6.0 [pH] Normal 5-9 [facility] Comment on above: Performed By: #### Nick MIN UMICRO #### [facility] [address] [place] [address] Dr. Ricarda Chiang SPEC GRAVITY 1.025 Normal 1.005-<=1.025 [facility] Comment on above: Performed By: #### Nick MIN UMICRO #### [facility] [address] [place] [address] Dr. Ricarda Chiang UA PROTEIN TRACE Normal NEGATIVE/ TRACE [facility] Comment on above: Performed By: #### Nick MIN UMICRO #### [facility] [address] [place] [address] Dr. Ricarda Chiang UR MICRO IND INDICATED Normal [facility] Comment on above: Performed By: #### Nick MIN UMICRO #### [facility] [address] [place] [address] Dr. Ricarda Chiang Urobilinogen Qn (U) 0.2 {Talita'U}/dL Normal 0.2 - 1. 0 [facility] Comment on above: Performed By: #### E TITO MIN #### [facility] [address] [place] [address] Dr. Ricarda Chiang PROF 14(COMP METB)on 023 Albumin [Mass/Vol] 3.8 g/dL Normal 3.4-5.0 [facility] Comment on above: Performed By: #### F T4 #### [facility] [address] [place] [address] Dr. Ricarda Chiang Albumin/Globulin [Mass ratio] 1.3 {ratio} Normal [facility] Comment on above: Performed By: #### F T4 #### [facility] [address] [place] [address] Dr. Ricarda Chiang ALP [Catalytic activity/Vol] 85 U/L Normal 46-116 [facility] Comment on above: Performed By: #### F T4 #### [facility] [address] [place] [address] Dr. Ricarda Chiang ALT [Catalytic activity/Vol] 14 U/L Normal 14-59 [facility] Comment on above: Performed By: #### F T4 #### [facility] [address] [place] [address] Dr. Ricarda Chiang Anion gap [Moles/Vol] 10.9 mmol/L Normal [facility] Comment on above: Performed By: #### F T4 #### [facility] [address] [place] [address] Dr. Ricarda Chiang AST [Catalytic activity/Vol] 12 U/L Critically low 15-37 [facility] Comment on above: Performed By: #### F T4 #### [facility] [address] [place] [address] Dr. Ricarda Chiang Bilirubin [Mass/Vol] 0.2 mg/dL Normal 0.2-1.0 [facility] Comment on above: Performed By: #### F T4 #### [facility] [address] [address] [address] Ricarda Chiang Calcium [Mass/Vol] 8.8 mg/dL Normal 8.5-10.1 [facility] Comment on above: Performed By: #### F T4 #### [facility] [address] [address] [address] Ricarda Chiang Chloride [Moles/Vol] 106 mmol/L Normal 98-107 [facility] Comment on above: Performed By: #### F T4 #### [facility] [address] [place] [address] Dr. Ricarda Chiang CO2 [Moles/Vol] 23.1 mmol/L Normal 21.0-32.[address] [facility] Comment on above: Performed By: #### F T4 #### [facility] [address] [place] [address] Dr. Ricarda Chiang Creatinine [Mass/Vol] 0.64 mg/dL Normal 0.55-1.02 [facility] Comment on above: Performed By: #### F T4 #### [facility] [address] [place] [address] Dr. Ricarda Chiang EGFR-AF LEBANESE >60 Normal >=[address] [facility] Comment on above: Performed By: #### F T4 #### [facility] [address] [place] [address] Dr. Ricarda Chiang EGFR-NON AF LEBANESE >60 Normal >=60 [facility] Comment on above: Performed By: #### F T4 #### [facility] [address] [place] [address] Dr. Ricarda Chiang Globulin (S) [Mass/Vol] 3.0 g/dL Normal [facility] Comment on above: Performed By: #### F T4 #### [facility] [address] [place] [address] Dr. Ricarda Chiang Glucose [Mass/Vol] 132 mg/dL Critically high 74-106 [facility] Comment on above: Performed By: #### F T4 #### [facility] [address] [place] [address] Dr. Ricarda Chiang Potassium [Moles/Vol] 3.0 mmol/L Critically low 3.5-5.1 [facility] Comment on above: Performed By: #### F T4 #### [facility] [address] [place] [address] Dr. Ricarda Chiang Protein [Mass/Vol] 6.8 g/dL Normal 6.4-8.2 [facility] Comment on above: Performed By: #### F T4 #### [facility] [address] [place] [address] Dr. Ricarda Chiang Sodium [Moles/Vol] 137 mmol/L Normal 136-145 [facility] Comment on above: Performed By: #### F T4 #### [facility] [address] [place] [address] Dr. Ricarda Chiang Urea nitrogen [Mass/Vol] 13.0 mg/dL Normal 7.0-18.0 [facility] Comment on above: Performed By: #### F T4 #### [facility] [address] [place] [address] Dr. Ricarda Chiang Urea nitrogen/Creatinine [Mass ratio] 20.3 mg/mg Normal [facility] Comment on above: Performed By: #### F T4 #### [facility] [address] [place] [address] Dr. Ricarda Chiang URINE MICROSCOPIC ONLYon BACTERIA TRACE Abnormal NONE SEEN [facility] Comment on above: Performed By: #### Nick MIN UMICRO #### [facility] [address] [place] [address] Dr. Ricarda Chiang Bacteria identified Cx Nom (U) NOT INDICATED Normal [facility] Comment on above: Performed By: #### Nick MIN UMICRO #### [facility] [address] [place] [address] Dr. Ricarda Chiang CA OX CRYSTALS RARE Normal [facility] Comment on above: Performed By: #### Nick MIN UMICRO #### [facility] [address] [place] [address] Dr. Ricarda Chiang CAST SEEN Abnormal NONE SEEN [facility] Comment on above: Performed By: #### E RUR, UMICRO #### [facility] [address] [place] [address] Dr. Ricarda Chiang Crystals LM Nom (Urine sed) SEEN Abnormal NONE SEEN [facility] Comment on above: Performed By: #### E RUR, UMICRO #### [facility] [address] [address] [address] Ricarda Chiang Epithelial cells LM Ql (Urine sed) RARE Normal NONE SEEN /RARE [facility] Comment on above: Performed By: #### E RUR, UMICRO #### [facility] [address] [place] [address] Dr. Ricarda Chiang MUCOUS NONE SEEN Normal NONE SEEN [facility] Comment on above: Performed By: #### E RUR, UMICRO #### [facility] [address] [place] [address] Dr. Ricarda Chiang RBC 20-50 Abnormal 0-2 [facility] Comment on above: Performed By: #### E RUR, UMICRO #### [facility] [address] [place] [address] Dr. Ricarda Chiang WBC 2-5 Abnormal NONE SEEN [facility] Comment on above: Performed By: #### E RUR, UMICRO #### [facility] [address] [place] [address] Dr. Ricarda Chiang US PELVIS AND TRANSVAGon [...] document regression . Electronically authenticated by: KENNA CAMERONFAINASERA Date: 2022-10-01 16:42 Normal [facility] PAP ACOG PANEL 2: 30 to 65on 08-31-2022 . . Normal [facility] Comment on above: Result Comment: Perf ormed at: WB Performed By: #### F T4 #### [facility] [address] [address] [address] Ricarda Chiang Age Gdln ACOG Testing 30-65 Normal [facility] Comment on above: Performed By: #### F T4 #### [facility] [address] [address] [address] Ricarda Chiang DIAGNOSIS: Comment Normal [facility] Comment on above: Result Comment: NEGA TIVE FOR INTRAEPITHELIAL LESION OR MALIGNANCY. Performed at: WB Performed By: #### F T4 #### [facility] [address] [address] [address] Ricarda Chiang HPV Aptima Negative Normal Negative [facility] Comment on above: Result Comment: This nucleic acid amplification test detects fourteen high-risk HPV types (16,18,31,33,35,39,45,51,52,56,58,59,66,68) without differentiation. Performed at: =G Performed By: #### F T4 #### [facility] [address] [address] [address] Ricarda Chiang HPV Genotype Reflex Comment Normal [facility] Comment on above: Result Comment: Crit eria not met, HPV Genotype not performed. Performed at: WB Performed By: #### F T4 #### [facility] [address] [address] [address] Ricarda Chiang Methodology: Comment Normal [facility] Comment on above: Result Comment: This liquid based ThinPrep(R) pap test was screened with the use of an image guided system. Performed at: WB Performed By: #### F T4 #### [facility] [address] [address] [address] Ricarda Chiang Note: Comment Normal [facility] Comment on above: Result Comment: The [...] WB Performed By: #### F T4 #### [facility] [address] [id number] Ricarda Chiang Performed by: Comment Normal [facility] Comment on above: Result Comment: Barrett Timmons, Diversional Therapist'S Assistant (ASCP) Performed at: WB Performed By: #### F T4 #### [facility] [address] [place] [address] Dr. Ricarda Chiang Specimen adequacy: Comment Normal [facility] Comment on above: Result Comment: Sati sfactory for evaluation. Endocervical and/or squamous metaplastic cells (endocervical component) are present. Performed at: WB Performed By: #### F T4 #### [facility] [id number] Ricarda Chiang XR Foot Complete Left*on [...] by Charlie Tatum on 03/29/2022 1332 Normal [facility] Towel Stretcher US Venous, Unilat, Lower Ext Lefton 09-28-2021 [...] by Charlie Tatum on 09/28/2021 1618 Normal [facility] Specialist Vital Signs Date Time Vital Sign Value Performing Clinician Helena landin 03-23-2025 08:41-0400 Body mass index (BMI) [Ratio] 28.87 kg/m2 Kimberlee TRAVIS Work Phone: [facility] 03-23-2025 08:41-0400 Body weight 73.94 kg Kimberlee TRAVIS Work Phone: [facility] 03-23-2025 08:41-0400 Diastolic blood pressure 76 mm[Hg] Kimberlee TRAVIS Work Phone: [facility] 03-23-2025 08:41-0400 Systolic blood pressure 136 mm[Hg] Kimberlee TRAVIS Work Phone: [facility] 12-10-2024 09:41-0400 Body height 162.56 cm Milad Ford MD Work Phone: [facility] 12-10-2024 09:41-0400 Body mass index (BMI) [Ratio] 28.5 kg/m2 Milad Ford MD Work Phone: [facility] 12-10-2024 09:41-0400 Body weight 75.29 kg Milad Ford MD Work Phone: [facility] 12-08-2024 14:43-0400 Body mass index (BMI) [Ratio] 30.11 kg/m2 Stiven Enriquez NP Work Phone: [facility] 12-08-2024 14:43-0400 Body weight 77.11 kg Stiven Enriquez DIRECTOR DESIGN Work Phone: [facility] 12-08-2024 14:43-0400 Diastolic blood pressure 76 mm[Hg] Stiven Enriquez DIRECTOR DESIGN Work Phone: [facility] 12-08-2024 14:43-0400 Systolic blood pressure 122 mm[Hg] Stiven Enriquez NP Work Phone: [facility] 09-14-2024 13:20-0500 Body mass index (BMI) [Ratio] 30.36 kg/m2 Kimberlee TRAVIS Work Phone: [facility] 09-14-2024 13:20-0500 Body weight 77.75 kg Kimberlee TRAVIS Work Phone: [facility] 09-14-2024 13:20-0500 Diastolic blood pressure 80 mm[Hg] Kimberlee TRAVIS Work Phone: [facility] 09-14-2024 13:20-0500 Systolic blood pressure 138 mm[Hg] Kimberlee Jane PA Work Phone: [facility] 03-18-2024 09:18-0400 Body height 160 cm Praveen Jodie DO Work Phone: [facility] 03-18-2024 09:18-0400 Body mass index (BMI) [Ratio] 30.82 kg/m2 Praveen Jodie DO Work Phone: [facility] 03-18-2024 09:18-0400 Body weight 78.93 kg Praveen Jodie DO Work Phone: [facility] 03-18-2024 09:18-0400 Diastolic blood pressure 72 mm[Hg] Praveen Jodie DO Work Phone: [facility] 03-18-2024 09:18-0400 Systolic blood pressure 116 mm[Hg] Praveen Jodie DO Work Phone: [facility] 10-11-2022 10:43-0400 Blood Pressure Location Evan GREGORY [facility] 10-11-2022 10:43-0400 Diastolic blood pressure 81 mm[Hg] Evan GREGORY [facility] 10-11-2022 10:43-0400 Heart rate 101 /min Evan GREGORY [facility] 10-11-2022 10:43-9423 Systolic blood pressure 151 mm[Hg] Evan GREGORY [facility] Encounters Encounter Date Encounter Type Care Provider Facility Start: 03-23-2025 End: 03-23-2025 Bamboo flowsheet Kimberlee TRAVIS Work Phone: [facility] Start: 03-23-2025 End: 03-25-2025 Bamboo flowsheet Kimberlee TRAVIS Work Phone: [facility] Start: 03-23-2025 End: 03-25-2025 Clinisync Result Encounter Generic External Data Provider [facility] External Department Unsolicited Start: 03-23-2025 End: 03-23-2025 Patient encounter procedure Kimberlee TRAVIS Work Phone: [facility] Work Phone: Start: 03-23-2025 End: 03-23-2025 Periodic preventive med est patient 40-64yrs Kimberlee TRAVIS Work Phone: [facility] Comment on above: Well woman exam with routine gynecological exam; Breast cancer screening by mammogram Start: 03-23-2025 End: 03-23-2025 ambulatory KIMBERLEE JANE Not Available Start: 03-11-2025 End: 03-11-2025 Telephone encounter Ben TRAVIS Work Phone: [facility] Comment on above: Med Refill (Ibuprofe n 800mg ) Start: 12-16-2024 End: 12-16-2024 ambulatory Milad Ford MD Work Phone: [facility] Work Phone: Start: 12-16-2024 End: 12-16-2024 Patient encounter procedure Milad Ford MD Work Phone: [facility] Work Phone: Start: 12-10-2024 End: 12-10-2024 Patient encounter procedure Milad Ford MD Work Phone: [facility] Work Phone: Start: 12-10-2024 End: 12-10-2024 ambulatory Milad Ford II Facility:[facility] Start: 12-08-2024 End: 12-08-2024 Office outpatient visit 15 minutes Stiven Enriquez DIRECTOR DESIGN Work Phone: [facility] Comment on above: Encounter for weight management Start: 12-08-2024 End: 12-08-2024 ambulatory STIVEN ENRIQUEZ Not Available Start: 11-30-2024 End: 11-30-2024 Nubia Salazar DO Work Phone: [facility] Start: 11-30-2024 End: 11-30-2024 Nubia Salazar DO Work Phone: [facility] Start: 11-30-2024 End: 11-30-2024 Office outpatient visit 15 minutes Jr. Neha Salazar DO Work Phone: [facility] Comment on above: History of total lef t knee replacement; Chronic pain of left knee Start: 11-30-2024 End: 11-30-2024 ambulatory NEHA DIEGO Not Available Start: 11-26-2024 End: 11-26-2024 ambulatory NEHA SALAZAR JR [facility] Start: 11-26-2024 ambulatory [facility] Start: 11-26-2024 End: 11-26-2024 ambulatory NEHA SALAZAR JR [facility] Start: 11-12-2024 End: 11-12-2024 External Result Encounter Kimberlee TRAVIS Work Phone: [facility] Unsolicited Start: 11-12-2024 End: 11-12-2024 External Result Encounter Kimberlee TRAVIS Work Phone: [facility] Unsolicited Start: 11-12-2024 End: 11-12-2024 ambulatory NEHA SALAZAR JR [facility] Start: 11-12-2024 Encounter for gynecological examination (general) (routine) without abnormal findings NEHA SALAZAR JR [facility] Start: 11-09-2024 End: 11-09-2024 Bamboo flowsheet Jr. Neha Salazar DO Work Phone: [facility] Start: 11-09-2024 End: 11-09-2024 Bamboo flowsheet Jr. Neha Salazar DO Work Phone: [facility] Start: 11-09-2024 End: 11-09-2024 Orders Only Neha Salazar DO Work Phone: [facility] Comment on above: Pain in left knee; Other chronic pain Start: 11-09-2024 End: 11-09-2024 Office outpatient visit 15 minutes Jr. Neha Salazar DO Work Phone: [facility] Comment on above: Chronic pain of left knee; History of total left knee replacement Start: 11-09-2024 End: 11-09-2024 ambulatory NEHA DIEGO Not Available Start: 09-21-2024 End: 09-21-2024 Bamboo flowsheet Jr. Neha Salazar DO Work Phone: [facility] Start: 09-21-2024 End: 09-21-2024 Bamboo flowsheet Jr. Neha Salazar DO Work Phone: [facility] Start: 09-21-2024 End: 09-21-2024 Office outpatient visit 15 minutes Jr. Neha Salazar DO Work Phone: [facility] Comment on above: Acute pain of left k nee (Primary Dx); History of total left knee replacement Start: 09-21-2024 End: 09-21-2024 ambulatory NEHA DIEGONICOLE Not Available Start: 09-14-2024 End: 09-14-2024 ambulatory KIMBERLEE JANE Not Available Start: 09-14-2024 End: 09-14-2024 Office outpatient visit 15 minutes Kimberlee Milwaukee PA Work Phone: [facility] Comment on above: Encounter for weight management Start: 06-21-2024 End: 06-21-2024 Refill Ben TRAVIS Work Phone: [facility] Comment on above: Acute pain of left k nee Start: 05-03-2024 End: 05-03-2024 Telephone encounter Eduardo King DIRECTOR DESIGN Work Phone: [facility] Start: 03-18-2024 End: 03-18-2024 Bamboo flowsheet Praveen Jodie DO Work Phone: [facility] Start: 03-18-2024 End: 03-18-2024 Bamboo flowsheet Praveen Jodie DO Work Phone: [facility] Start: 03-18-2024 End: 03-18-2024 Office outpatient visit 15 minutes Praveen Jodie DO Work Phone: [facility] Comment on above: Encounter for weight management Start: 09-04-2023 Bamboo flowsheet Kimberlee TRAVIS Work Phone: [facility] Start: 09-04-2023 Bamboo flowsheet Kimberlee TRAVIS Work Phone: [facility] Start: 09-04-2023 Telephone encounter Neha Sarah Salazar DO Work Phone: [facility] Comment on above: Med Refill Start: 01-24-2023 End: 01-25-2023 ambulatory Evan GREGORY Facility:[facility] Start: 01-24-2023 End: 01-24-2023 Patient encounter procedure Evan GREGORY [facility] Start: 11-15-2022 End: 11-15-[address] KALYANI SANCHES Facility: Start: 11-10-2022 Encounter for other preprocedural examination DR PRAVEEN FELICIANO . [facility] Start: 11-05-2022 End: 11-06-[address] KALYANI SANCHES Facility:[facility] Start: 11-05-2022 End: 11-06-2022 Encounter for other preprocedural examination DR KALYANI SANCHES Facility:[facility] Start: 10-11-2022 End: 10-12-[address] KALYANI SANCHES Facility:[facility] Start: 10-11-2022 End: 10-12-2022 ambulatory Evan GREGORY Facility:[facility] Start: 10-11-2022 End: 10-11-2022 Patient encounter procedure Evan GREGORY [facility] Start: 10-10-2022 End: 10-11-2022 ambulatory KIMBERLEE JNAE . Facility:[facility] Start: 10-04-2022 ambulatory Evan GREGORY Facility :[facility] Start: 10-03-2022 End: 10-03-[address] NANDINI SAVAGE . Facility:[facility] Start: 10-01-2022 End: 10-02-2022 ambulatory KIMBERLEE JANE . Facility:[facility] Start: 08-26-2022 End: 08-26-2022 ambulatory KIMBERLEE JANE . Facility:[facility] Procedures Date Procedure Procedure Detail Performing Clinician Start: 03-23-2025 IGP,APTIMA HPV,AGE GDLN Kimberlee TRAVIS Work Phone: Start: 12-10-2024 Plain radiography of pelvis Milad [...] Td Vaccines (3 - Td or Tdap) [facility] Start: 12-02-2026 Screening for malign ant neoplasm of cervix [facility] Start: 03-29-2026 End: 03-29-2026 Patient encounter procedure 03/29/2026 9:00 AM EDT Procedure Visit [facility] [address] [place] [phone] Kimberlee Jane PA [address] [place] [address] [facility] OBETHAN Start: 03-28-2025 Influenza vaccination [facility] Start: 03-23-2025 End: 05-23-2026 MG Breast - bilateral Screening Bilateral screening mammogram Imaging Routine Breast cancer screening by mammogram Expected: 03/23/2025 (Approximate), Expires: 05/23/[address] [facility] Work Phone: Comment on above: Expected: 03/23/2025 (Approximate), Expires: 05/23/2026 Start: 03-23-2025 End: 03-23-2025 Patient encounter procedure [facility] Comment on above: Arrived Start: 11-30-2024 End: 11-30-2024 Patient encounter procedure [facility] Comment on above: Arrived Start: 11-09-2024 End: 11-09-2025 C reactive protein [Mass/volume] in Serum or Plasma C-reactive protein Lab Routine Chronic pain of left knee Expected: 11/09/2024 (Approximate), Expires: 11/09/[address] [facility] Comment on above: Expected: 11/09/2024 (Approximate), Expires: 11/09/2025 Start: 11-09-2024 End: 11-09-2025 C-reactive protein C-reactive protein Lab Routine Pain in left knee Other chronic pain Expected: 11/09/2024, Ex[facility]: [facility] Work [facility]: Comment on above: Expected: 11/09/2024 , Expires: 11/09/2025 Start: 11-09-2024 End: 11-09-2025 CBC W Auto Differential panel - Blood CBC and differential Lab Routine Chronic pain of left knee Expected: 11/09/2024 (Approximate), Expires: 11/09/2025 [facility] Comment on above: Expected: 11/09/2024 (Approximate), [...] knee replacement Expected: 11/09/2024 (Approximate), Expires: 11/09/2025 [facility] Work Phone: Comment on above: Expected: 11/09/2024 (Approximate), Expires: 11/09/2025 Start: 11-09-2024 End: 11-09-2024 Patient encounter procedure 11/09/2024 8:00 AM EDT Office Visit [facility] [address] [place] [phone] Jr. Neha Salazar, DO [address] [facility] [address] [place] [address] Arrived [facility] Comment on above: Arrived Start: 10-12-2024 End: 10-12-2024 Patient encounter procedure 10/12/2024 8:00 AM EDT Office Visit [facility] [address] [place] [phone] Jr. Neha Salazar, DO [address] [facility] [address] [place] [address] [facility] Start: 09-22-2024 End: 09-22-2024 Patient encounter procedure 09/22/2024 2:30 PM EST Office Visit [facility] [address] [place] [phone] Jr. Neha Salazar, DO [address] [facility] [address] [place] [address] [facility] Start: 09-21-2024 End: 09-21-2024 Patient encounter procedure [facility] Comment on above: Acute pain of left k nee (Primary Dx); History of total left knee replacement Start: 03-28-2024 Influenza vaccination [facility] Start: 03-18-2024 End: 03-18-2024 Patient encounter procedure 03/18/2024 10:50 AM EDT Office Visit [facility] [address] [place] [phone] Praveen Feliciano, DO [address] [place] [address] Arrived [facility] Comment on above: Arrived Start: 10-01-2023 Adult BMI Screening Adult BMI Screen Critical access hospital Start: 09-24-2023 End: 09-24-2023 Patient encounter procedure 09/24/2023 8:30 AM EST Office Visit [facility] [address] [place] [phone] Jr. Neha Salazar, DO [address] [facility] [address] [place] [address] [facility] Start: 09-04-2023 End: 09-04-2023 Patient encounter procedure 09/04/2023 9:20 AM EST Office Visit [facility] [address] [place] [phone] Kimberlee Jane PA [address] [place] [address] Arrived [facility] Comment on above: Arrived Start: 08-26-2023 Screening for malign ant neoplasm of breast Mammogram [facility] Start: 03-28-2023 Influenza vaccination Influenza Vacc ine (#1) [facility] Start: 2006 Screening for malign ant neoplasm of cervix [facility] Start: 1997 Screening for malign ant neoplasm of cervix Pap Smear [facility] Start: 1988 Depression Screening Depression Scre ening [facility] Start: 1988 Tobacco Screening Tobacco Screening [facility] Start: 1976 Screening for malign ant neoplasm of colon [facility] THIN PREP TIS PAP AN D HR HPV DNA THIN PREP TIS PAP AND HR HPV DNA Pathology and Cytology Routine Well woman exam with routine gynecological exam Ordered: 03/23/[address] [facility] Comment on above: Ordered: 03/23/2025 XR Knee - left 1 or 2 Views XR knee 1 or 2 views left Imaging Routine Acute pain of left knee 09/21/2024 8:[address] [facility] Work Phone: Immunizations Immunization Date Immunization Notes Care Provider Sudheer laura 05-02-2020 influenza virus vaccine, unspecified formulation Evan GREGORY [facility] 05-02-2020 influenza, injectabl e, quadrivalent, preservative free Kimberlee TRAVIS Work Phone: [facility] 01-23-2020 tetanus toxoid, redu oral diphtheria toxoid, and acellular pertussis vaccine, adsorbed Evan GREGORY [facility] 05-12-2019 influenza virus vaccine, unspecified formulation Evan GREGORY [facility] 05-12-2019 influenza, injectabl e, quadrivalent, contains preservative Kimberlee TRAVIS Work Phone: [facility] 10-05-2018 hepatitis B vaccine, adult dosage Evan GREGORY [facility] 09-21-2018 tetanus toxoid, redu oral diphtheria toxoid, and acellular pertussis vaccine, adsorbed Evan GREGORY [facility] 04-29-2018 hepatitis B vaccine, adult dosage Evan GREGORY [facility] 03-26-2018 hepatitis B vaccine, adult dosage Evan GREGORY [facility] Payers Date Payer Category Payer Self-pay 2022 Medicaid [id number] 2022 Medicaid [id number] 2019 Unknown [id number] 2017 Private Health Insurance [id number] 1976 Unknown [id number] 2.16.84 0.1.474855.3.579.2.593 1976 Unknown [id number] 2.16.84 0.1.908219.3.579.2.593 1976 Unknown [id number] 2.16.84 0.1.751492.3.579.2.593 1976 Unknown [id number] 2.16.84 0.1.527390.3.579.2.593 1976 Unknown [id number] 2.16.84 0.1.139664.3.579.2.593 1976 Unknown [id number] 2.16.84 0.1.714209.3.579.2.593 1976 Unknown [id number] 2.16.84 0.1.931454.3.579.2.593 1976 Unknown [id number] 2.16.8 40.1.813078.3.579.2.727 1976 Unknown [id number] 2.16.8 40.1.564957.3.579.2.727 1976 Unknown [id number] 2.16.8 40.1.657706.3.579.2.727 1976 Unknown [id number] 2.16. 840.1.118707.3.579.2.1286 1976 Unknown [id number] 2.16. 840.1.698053.3.579.2.1286 1976 Unknown [id number] 2.16. 840.1.861436.3.579.2.128 1976 Unknown [id number] 2.16. 840.1.165357.3.579.2.128 1976 Unknown [id number] 2.16. 840.1.313441.3.579.2.128 1976 Unknown [id number] 2.16. 840.1.316340.3.579.2.128 1976 Unknown [id number] 2.16. 840.1.911856.3.579.2.128 1976 Unknown [id number] 2.16.8 40.1.158261.3.579.2.1258 1976 Unknown [id number] 2.16.84 0.1.889604.3.579.2.1258 1976 Unknown [id number] 2.16.84 0.1.039816.3.579.2.9 1976 Unknown [id number] 2.16.84 0.1.620519.3.579.2.1258 1976 Unknown [id number] 2.16.84 0.1.563903.3.579.2.1259 1976 Unknown [id number] 2.16.84 0.1.973903.3.579.2.1258 1976 Unknown [id number] 2.16.84 0.1.898423.3.579.2.1259 1959 Unknown [id number] Unknown [id number] 2.16.8 40.1.315340.3.579.2.531 Social History Date Type Detail Facility Start: 10-11-2022 End: 02-03-2023 Tobacco smoking status Never smoked tobacco (finding) [facility] Start: 02-14-2023 End: 12-08-2024 Sex Assigned At Female [facility] Start: 04-25-2017 End: 02-03-2023 Tobacco use and [...] beverage intake Current [facility]drinker [facility] Start: 03-02-2015 End: 12-16-2024 Sex Female (finding[facility] Tobacco smoking status NHIS Unknown if ever smoked [facility] Work Phone: Start: 1975 Sex Assigned At Female F [facility] NEGATED: Highlighted row [facility] Medical Equipment Procedure Code Equipment Code Equipment Origin al Text Equipment Identifier Dates Cement Bn Bio 40 gm Rpl [id number] - Sna - [id number] Start: 06-12-2021 Cement Bn Bio 40 gm Rpl [id number] - Sna - [id number] Start: 06-12-2021 Component Fem 5 Std Kn Lt Post Stab Cmnt Persona Cocr Strl - Sna - [id number] Start: 06-12-2021 Surface Artc 10m m Persona 3-5 Ef Kn Lt Vivacit-E Post Stab - Sna - [id number]$$ [id number], [id number] FDA Start: 06-12-2021 Component Ptlr 3 2mm Persona Alply Kn Strl Lf - [id number], [id number] FDA Start: 06-12-2021 Baseplate Tib 5d F Kn Lt Cmnt Stm Persona Tiv Strl - [id number]$$ [id number], [id number] FDA Start: 06-12-2021 Functional Status Date Assessment Result Facility 10-11-2022 Functional Status N/A [facility] Clinical Notes 10-11-2022 to 03-23-2025 THADDEUS [...] nursing note reviewed. Exam conducted with a customs port director present. Vitals: Estimated body mass index is [...] of: THADDEUS Rojas documented in this encounter [facility] 03-11-2025 Telephone encount er Note Motrin rx needed. - Per Jessica phone encounter. [facility] 03-11-2025 Miscellaneous Notes Formattin g of this note might be different from the original. Motrin rx needed. - Per Jessica phone encounter. documented in this encounter [facility] 03-11-2025 Telephone encount er Note Spoke to pt and she states last office visit Dr. Salazar recommended to stop Celebrex and start taking Motrin. She would like it ivana Dejesus in [place]. She said Logan is not suggesting surgery at this time. Possible inj in the future. She is going to hold of on inj at this time and would like the motrin sent in. Pt was grateful for return call. [facility] 03-11-2025 Miscellaneous Notes Formattin g of this note might be different from the original. Spoke to pt and she states last office visit Dr. Salazar recommended to stop Celebrex and start taking Motrin. She would like it sen tot [facility] in [place]. She said Logan is not suggesting surgery [...] Ibuprofen. Please call In to Anjelica in [place] documented in this encounter [facility] 03-11-2025 Telephone encount er Note Left msg for pt to clarify. [facility] 03-11-2025 Telephone encount er Note Pt previously on celebrex and I do not see any Motrin prescriptions in our recent visits. Can you check with pt to see if she Saw Dr. Ford for her knee and if script came from him? [facility] 03-11-2025 Telephone encount er Note Jenn called and requested a refill on her Ibuprofen. Please call In to Anjelica [place] [facility] 12-10-2024 Evaluation note Diagnosis Onset Date Resolution History of total left knee replacement acute December 10, 2024 9:16am [facility] Work Phone: 1(958) 257-235605-14-2025 History of Present illness Narrative* Stiven Enriquez NP - 12/08/2024 3:00 PM EDT Reason for [...] REPAIR 2013 with mesh VENTRAL HERNIA REPAIR 2017 Review [...] nursing note reviewed. Exam conducted with a customs port director present. Assessment/Plan Encounter Diagnosis Name Primary? Encounter [...] of Stiven Enriquez NP documented [facility] [id number] History of Present illness Narrative* Jr. Neha [...] for requiring urgent evaluation. documented in this [facility] [id number] History of Present illness Narrative* Jr. Neha [...] SCAN NO LABS PREVIOUS PHYSICAL THERAPY @ [facility] ; POST-OP S/P NWB IN [place] [...] bone 3 phase TO BE DONE AT [facility]. CONCERN FOR PROSTHETIC LOOSENING Standing Status: [...] Date: 11/09/2024 Expiration Date: 11/09/2025 Scheduling Instructions: [facility] Print requisition?: No ASSESSMENT: ICD-10-CM 1. Chronic [...] for requiring urgent evaluation. documented in this encounter[facility] [id number] History of Present illness Narrative* Jr. Neha [...] / EPIC (L)LE VENOUS DOPPLER 05/08/23 @ [facility] (NEG DVT) S/P PREDISONE 05/19/23, 09/28/21 S/P MDP 08/17/21 NO BONE SCAN PREVIOUS PHYSICAL THERAPY @ [facility] ; POST-OP S/P NWB IN [place] [...] for requiring urgent evaluation. documented in this encounterTenet St. [id number] History of Present illness Narrative* THADDEUS Rojas [...] behalf of THADDEUS Rojas documented in this encounterTen[facility] LouisHezfssaxya86-07-0383 Telephone encounter Note* Telephone Encounter - Eduardo King NP - 05/03/2024 4:05 PM EDT Rx sent to pharmacy [facility] LouisKyalsdgvdy50-95-2983 Miscellaneous Notes* Telephone Encounter - Eduardo King NP - 05/03/2024 4:05 PM EDT Rx sent to pharmacy * Telephone Encounter - Reanna Royal - 05/03/2024 3:48 PM EDT Patient stopped by needing a script for antibiotic for her dentist appt? documented in this [facility] [id number] Telephone encounter Note* Telephone Encounter - Reanna Royal - 05/03/2024 3:48 PM EDT Patient stopped by needing a script for antibiotic for her dentist appt? [facility] [id number] History of Present illness Narrative* Dolly Sue [...] knee joint present 02/03/2023 Bipolar 2 disorder ([facility]/HCC) 02/03/2023 Depression with anxiety 02/03/2023 Depression (CMS/HCC) 02/03/2023 Difficulty walking 02/03/2023 Insulin resistance syndrome [...] nursing note reviewed. Exam conducted with a customs port director present. Vitals: Estimated body mass index is [...] of: Praveen Feliciano DO documented in this [facility]02-08-2024 Telephone encounter Note* Telephone Encounter - THADDEUS Cash - 09/04/2023 3:15 PM EST Rx sent to [facility]. Please notify pt. [facility] [id number] Miscellaneous Notes* Telephone Encounter - THADDEUS Cash - 09/04/2023 3:15 PM EST Rx sent to [facility]. Please notify pt. * Telephone Encounter - Ena La - 09/04/2023 3:02 PM EST Patient called requesting antibiotic be sent to [facility] for upcoming dentist appointment. Allergies are listed in chart. Patient's call back is [phone]. Please advise, thank you documented in this [facility]02-08-2024 Telephone encounter Note* Telephone Encounter - Ena La - 09/04/2023 3:02 PM EST Patient called requesting antibiotic be sent to [facility] for upcoming dentist appointment. Allergies are listed in chart. Patient's call back is [phone]. Please advise, thank you [facility] [id number] NoteOPERATIVE NOTE OPERATION DATE: 11/15/2022 PROCEDURE: Vicky endometrial ablation with hysteroscopy. PREOPERATIVE DIAGNOSIS: Menorrhagia. POSTOPERATIVE DIAGNOSIS: Menorrhagia. ANESTHESIA: General. SURGEON: Praveen Feliciano D.O. WINDOWS SOFTWARE ENGINEER: None. BLOOD LOSS: 5 mL. URINE OUTPUT: [...] Patient taken to recovery in stable condition.[facility]rf[facility] Hospital Discharge instructions Follow Up Care 10/24/2022 15:19:40 With:BRI GORE, Evan Gutierrez, URL Address: [address] [place], [place] [id number]- When: Unknown [facility] 03-17-2023 Hospital Discharge instructions Patient Education 10/11/2022 11:26:11 Kidney Stones, Dpsw-jc-Leyr Kidney Stones Kidney stones are rock-like masses [...] Follow these instructions at home: Medicines Take mnoy-pfp-zstmbuq and prescription medicines only as told by [...] 12/30/2008 Document Revised: 11/30/2019 Document Reviewed: 11/30/2019 [employer] Patient Education 2020 [employer] Follow Up Care 10/04/2022 13:25:16 With:BRI GORE, Evan Gutierrez, URL Address: [address] [place] [address]- When: Unknown [facility] evaluation + Plan note No data available for this section [facility] Rezzie evaluation note* Diagnosis History of total left knee replacement- Primary documented in this encounter [facility]* Diagnosis History of total left knee replacement- Primary documented in this encounter [facility]* Diagnosis Acute pain of left knee documented in this encounter [facility]* Diagnosis Encounter for weight management documented in this encounter [facility]* Diagnosis Encounter for weight management documented in this encounter [facility]* Diagnosis Acute pain of left knee- Primary History of total left knee replacement documented in this encounter [facility]* Diagnosis Pain in left knee Other chronic pain [facility] Diagnosis Chronic pain of left knee History of total left knee replacement documented in this encounter [facility]* Diagnosis History of total left knee replacement Chronic pain of left knee documented in this encounter [facility]* Diagnosis Encounter for weight management documented in this encounter [facility]* Diagnosis History of total left knee replacement- Primary Chronic pain of left knee documented in this encounter [facility]* Diagnosis Well woman exam with routine gynecological exam Routine gynecological examination Breast cancer screening by mammogram documented in this encounter [facility] HealthcareInstructionsNot on filedocumented in this encounterAdena Health System SystemProgress note No data available for this section [facility] Rezzie Summary Purpose Family History No Family History [...] section and content) DATE CREATED AUTHOR 03/30/2022 [facility] dical Specialist DATE CREATED AUTHOR AUTHOR'S ORGANIZ ATION 2022 [facility] DATE CREATED AUTHOR AUTHOR'S ORGANIZ ATION 01/25/2023 [facility] DATE CREATED AUTHOR AUTHOR'S ORGANIZ ATION 12/01/2024 [facility] DATE CREATED AUTHOR AUTHOR'S ORGANIZ ATION [facility]2024 [facility] DATE CREATED AUTHOR AUTHOR'S ORGANIZ ATION 12/14/2024 [facility] DATE CREATED AUTHOR AUTHOR'S ORGANIZ ATION 03/24/2025 [facility] dical Specialists EPIC Patient Care team informatio n (unrecognized section and content) Lang Path Therapist Relationship Specialty Start Date End Date Park Perdomo MD [address] [place] [address] PCP - General Family Medicine 02/03/23 Idalmis Kramer NP [address] [place] [address] Nurse Practitioner Family Medicine 02/03/23 Lang Path Therapist Relationship Specialty Start Date End Date Park Perdomo MD [address] [place] [address] PCP - General Family Medicine 02/03/23 Idalmis Kramer NP [address] [place] [address] Nurse Practitioner Family Medicine 02/03/23 Lang Path Therapist Relationship Specialty Start Date End Date Park Perdomo MD [address] [place] [address] PCP - General Family Medicine 02/03/23 Franklin Sanchez MD [address] [place] [address], [place] [address] PCP - [facility] 10/27/23 Idalmis Kramer NP [address] [facility] [place] [address] Nurse Practitioner Family Medicine 02/03/23 Lang Path Therapist Relationship Specialty Start Date End Date Park Perdomo MD [address] [facility] [place] [address] PCP - General Family Medicine 02/03/23 Franklin Sanchez MD [address] [place] [address], [place] [address] PCP - [facility] 10/27/23 Idalmis Kramer NP [address] [facility] [place] [address] Nurse Practitioner Family Medicine 02/03/23 Lang Path Therapist Relationship Specialty Start Date End Date Park Perdomo MD [address] [place] [address] PCP - General Family Medicine 02/03/23 Idalmis Kramer NP [address] [facility] [place] [address] Nurse Practitioner Family Medicine 02/03/23 Lang Path Therapist Relationship Specialty Start Date End Date Park Perdomo MD [address] [facility] [place] [address] PCP - General Family Medicine 02/03/23 Idalmis Kramer NP [address] [facility] [place] [address] Nurse Practitioner Family Medicine 02/03/23 Lang Path Therapist Relationship Specialty Start Date End Date Park Perdomo MD [address] [facility] [place] [address] PCP - General Family Medicine 02/03/23 Franklin Sanchez MD [address] [facility] [address] [place] [address] PCP - [facility] [place] SENIOR TECHNICAL PROGRAM MANAGER 10/27/23 Idalmis Kramer NP [address] [facility] [place] [address] Nurse Practitioner Family Medicine 02/03/23 Lang Path Therapist Relationship Specialty Start Date End Date Park Perdomo MD [address] [facility] [place] [address] PCP - General Family Medicine 02/03/23 Franklin Sanchez MD [address] [facility] [address] [place] [address] PCP - [facility] [place] SENIOR TECHNICAL PROGRAM MANAGER 10/27/23 Idalmis Kramer NP [address] [facility] [place] [address] Nurse Practitioner Family Medicine 02/03/23 Lang Path Therapist Relationship Specialty Start Date End Date Park Perdomo MD [address] [place] [address] PCP - General Family Medicine 02/03/23 Franklin Sanchez MD [address] [facility] [address] [place] [address] PCP - [facility] 10/27/23 Idalmis Kramer DIRECTOR DESIGN [address] [place] [address] Nurse Practitioner Family Medicine 02/03/23 Lang Path Therapist Relationship Specialty Start Date End Date Kalyani Sanches MD PCP - General Family Medicine 04/03/20 Lang Path Therapist Relationship Specialty Start Date End Date Park Perdomo MD [address] [place] [address] PCP - General Family Medicine 02/03/23 Franklin Sanchez MD [address] [place] [address] [address] [place] [address] PCP - [facility] 10/27/23 Idalmis Kramer NP [address] [place] [address] Nurse Practitioner Family Medicine 02/03/23 Lang Path Therapist Relationship Specialty Start Date End Date Park Perdomo MD [address] [place] [address] PCP - General Family Medicine 02/03/23 Franklin Sanchez MD [address] [facility] [address] [place] [address] PCP - [facility] 10/27/23 Idalmis Kramer NP [address] [place] [address] Nurse Practitioner Family Medicine 02/03/23 Lang Path Therapist Relationship Specialty Start Date End Date Park Perdomo MD [address] [place] [facility] [address] PCP - General Family Medicine 02/03/23 Franklin Sanchez MD [address] [facility] [address] [place] [address] PCP - [facility] 10/27/23 Idalmis Kramer NP [address] [place] [facility] [address] Nurse Practitioner Family Medicine 02/03/23 Lang Path Therapist Relationship Specialty Start Date End Date Park Perdomo MD [address] [place] [facility] [address] PCP - General Family Medicine 02/03/23 Franklin Sanchez MD [address] [facility] [address] [place] [address] PCP - [facility] 10/27/23 Idalmis Kramer NP [address] [place] [address] Nurse Practitioner Family Medicine 02/03/23 Team Status: [...] December 16, 2024 End: December 16, 2024 Lang Path Therapist Relationship Specialty Start Date End Date Park Perdomo MD [address] [place] [facility] [address] PCP - General Family Medicine 02/03/23 Franklin Sanchez MD [address] [facility] [address] [place] [address] PCP - [facility] 10/27/23 Idalmis Kramer NP [address] [facility] [place] [address] Nurse Practitioner Family Medicine 02/03/23 Lang Path Therapist Relationship Specialty Start Date End Date Park Perdomo MD [address] [place] [place] [address] PCP - General Family Medicine 02/03/23 Franklin Sanchez MD [address] [facility] [address] [place] [address] PCP - [facility] 10/27/23 Idalmis Kramer NP [address] [place] [address] Nurse Practitioner Family Medicine 02/03/23 Lang Path Therapist Relationship Specialty Start Date End Date Park Perdomo MD [address] [facility] [place] [address] PCP - General Family Medicine 02/03/23 Franklin Sanchez MD [address] [facility] [address] [place] [address] PCP - [facility] 10/27/23 Idalmis Kramer DIRECTOR DESIGN [address] [facility] [place] [address] Nurse Practitioner Family Medicine 02/03/23 Lang Path Therapist Relationship Specialty Start Date End Date Park Perdomo MD [address] [facility] [place] [address] PCP - General Family Medicine 02/03/23 Franklin Sanchez MD [address] [facility] [address] [place] [address] PCP - [facility] 10/27/23 Idalmis Kramer NP [address] [facility] [place] [address] Nurse Practitioner Family Medicine 02/03/23 Reason for [...] BE BASED ON THE PRIMARY CLINICAL RECORDS. [facility] [employer] [facility]. provides no warranty or guarantee of the accuracy or completeness of information in this document.
--- NOTE | 2025-04-01 12:57 | MM_ITS ---
Patient Name: JEREMY NDIAYE MR#: [id number] : 1975 Exam Date: 04/01/2025 Ordering Doctor: THADDEUS SHAIKH . RADIOLOGY REPORT PROCEDURE: MM TOMOSYNTHESIS SCREENING BI COMPARISON: MM TOMOSYNTHESIS SCREENING BI, 09/24/2017. INDICATIONS: screening for malignant neoplasm of breast Calculator Name NCI Breast Cancer Risk Assessment Tool 5 Year Breast Cancer Risk 1.20% Lifetime Breast Cancer Risk 11.80% Personal Breast Cancer No Personal Ovarian Cancer No Treatments None Family Cancers Mother with breast cancer at age 40; Mother with uterine cancer at age 35. LOCATION: [facility] BREAST COMPOSITION: There are scattered areas of fibroglandular density. FINDINGS: RIGHT BREAST: No significant suspicious finding. Benign-appearing lymph nodes in the along the right chest wall . LEFT BREAST: No significant suspicious finding. DIAGNOSTIC CATEGORY 1--NEGATIVE. NO CHANGE FROM COMPARISON ASSESSMENT. RECOMMENDATIONS: ROUTINE MAMMOGRAM AND CLINICAL EVALUATION IN 12 MONTHS. Dictated by: Anthony Ronquillo MD on 04/01/2025 at 14:16 Approved by: Anthony Ronquillo MD on 04/01/2025 at 14:21
== END 2025-04-01 12:21 | disposition home or self-care (01) ==
LOC: MAMMO 12:21
PROVIDERS: PCP Family Medicine; Visit Provider Physician Assistant
DX: Z12.31 Encounter for screening mammogram for malignant neoplasm of breast (principal); Z80.3 Family history of malignant neoplasm of breast; Z80.8 Family history of malignant neoplasm of other organs or systems
CPT/HCPCS: 77063; 77067